=== PATIENT | male | born 1965 | race Caucasian/White ===

== ENCOUNTER 2017-07-23 10:40 | Inpatient (IN) | payer MEDICARE, MEDICAID ==
[~2017-07-23] VITALS: Ht 177.8 cm; Wt 70.3 kg
[2017-07-23 10:52] VITALS: BP 96/61
--- NOTE | 2017-07-23 11:40 | Emergency Room Report ---
History of Present Illness General Chief Complaint: General Complaint Source: Patient, Medical Record Present Illness HPI T1-year-old male coming from [facility], history of contractures, failure to thrive, dysphagia, sent in for videofluoroscopy for evaluation of dysphagia. Patient currently with muffled voice however able to state his name and where he is, does not know the year or purpose. Denying any pain at this time. No other history able to be obtained Allergies: Coded Allergies: PENICILLINS (Verified Allergy, Unknown, 07/23/17) Patient History Limited by: medical condition Past Medical History: see triage record Past Surgical History: unable to obtain Pertinent Family History: unable to obtain Reviewed Nursing Documentation: PMH: Agreed, PSxH: Agreed Nursing Documentation-PMH Past Medical History: No History, Except For Hx Hypertension: Yes History Of Psychiatric Problem: Yes - dementia, depression Hx Seizures: Yes Review of Systems All Other Systems: limited Physical Exam Vital Signs Date Time Temp Pulse Resp B/P (MAP) Pulse Ox O2 Delivery O2 Flow Rate FiO2 07/23/17 10:36 97.9 76 18 95/58 98 Room Air Sp02 EP Interpretation: reviewed, normal General Appearance: alert, non-toxic, other - chronically ill appearing elderly male Head: normocephalic, atraumatic Eyes: bilateral eye normal inspection, bilateral eye PERRL, bilateral eye EOMI ENT: normal pharynx, dry mucus membranes, other - muffled voice Neck: normal inspection, full range of motion, supple Respiratory: normal inspection, lungs clear, normal breath sounds, no respiratory distress, no retraction, no wheezing, speaking full sentences, chest symmetrical Cardiovascular #1: normal inspection, regular rate, rhythm, no edema, normal capillary refill Cardiovascular #2: 2+ radial (R), 2+ radial (L) Gastrointestinal: normal inspection, non tender, soft, non-distended, no guarding Genitourinary: no CVA tenderness Musculoskeletal: normal inspection, back normal, normal range of motion, non- tender, other - contractures b/l le but able to move on command Neurologic: responsive, motor strength/tone normal, sensory intact, normal gait , speech normal Psychiatric: other - poor historian Skin: normal color, no rash, warm/dry, normal turgor Medical Decision Making Diagnostic Impression: Primary Impression: Failure to thrive Additional Impression: Dysphagia ER Course 51-year-old male with dysphasia DDX: Failure to thrive, dysphasia Plan: Obtain labs, ua, EKG, CXR Admit ER course: Patient has been monitored during ED stay Given IV fluids for low blood pressure now MAP >65 CXR noted to have opaque FB however pt not with any lines or NG tubes Disposition: Patient is to be admitted to [facility] D/W hospitalist Dr Ever Mendosa Please note that this Emergency Department Report was dictated using [employer] events planner technology software, occasionally this can lead to erroneous entry secondary to interpretation by the dictation equipment. EKG Diagnostic Results EP Interpretation: Yes Rate: normal Rhythm: NSR ST Segments: No acute changes , chano ASA given to patient: No Rhythm Strip EP Interpretation: Yes Rate: 65 Rhythm: NSR, no PVCs, no ectopy Chest X-ray CXR: Ordered: Yes 1 view Indication: Facia EP interpretation: Yes Interpretation: Apparent radioopaque foreign body midline over neck and upper mediastinum Impression: No acute disease Electronically signed by Artem Quintana MD Laboratory Tests Test 07/23/17 11:32 White Blood Count 4.1 K/UL (4.8-10.8) L Red Blood Count 4.52 M/UL (4.70-6.10) L Hemoglobin 13.9 G/DL (14.2-18.0) L Hematocrit 42.8 % (42.0-52.0) Mean Corpuscular Volume 95 FL (80-99) Mean Corpuscular Hemoglobin 30.8 PG (27.0-31.0) Mean Corpuscular Hemoglobin Concent 32.5 G/DL (32.0-36.0) Red Cell Distribution Width 12.2 % (11.6-14.8) Platelet Count 174 K/UL (150-450) Mean Platelet Volume 8.2 FL (6.5-10.1) Neutrophils (%) (Auto) 57.8 % (45.0-75.0) Lymphocytes (%) (Auto) 28.8 % (20.0-45.0) Monocytes (%) (Auto) 10.3 % (1.0-10.0) H Eosinophils (%) (Auto) 2.3 % (0.0-3.0) Basophils (%) (Auto) 0.8 % (0.0-2.0) Prothrombin Time Pending Prothrombin Time INR Pending PTT Pending Sodium Level 138 MMOL/L (136-145) Potassium Level 3.9 MMOL/L (3.5-5.1) Chloride Level 103 MMOL/L (98-107) Carbon Dioxide Level 27 MMOL/L (21-32) Anion Gap 8 mmol/L (5-15) Blood Urea Nitrogen 12 mg/dL (7-18) Creatinine 0.7 MG/DL (0.55-1.30) Estimate Glomerular Filtration Rate > 60 mL/min (>60) Glucose Level 118 MG/DL (74-106) H Calcium Level 9.1 MG/DL (8.5-10.1) Total Bilirubin 0.5 MG/DL (0.2-1.0) Aspartate Amino Transferase (AST) 15 U/L (15-37) Alanine Aminotransferase (ALT) 17 U/L (12-78) Alkaline Phosphatase 55 U/L (46-116) Total Protein 7.0 G/DL (6.4-8.2) Albumin 3.3 G/DL (3.4-5.0) L Globulin 3.7 g/dL Albumin/Globulin Ratio 0.9 (1.0-2.7) L Last Vital Signs Date Time Temp Pulse Resp B/P (MAP) Pulse Ox O2 Delivery O2 Flow Rate FiO2 07/23/17 10:36 97.9 76 18 95/58 98 Room Air Disposition: ADMITTED INPATIENT Condition: Serious Artem Quintana M.D. Jul 23, 2017 11:40
[2017-07-23 11:55] LABS: BASOPHILS % (AUTO) 0.8 % (0.0-2.0); EOSINOPHILS % (AUTO) 2.3 % (0.0-3.0); LYMPHOCYTES % (AUTO) 28.8 % (20.0-45.0); MEAN CORPUSCULAR HEMOGLOBIN 30.8 PG (27.0-31.0); MEAN CORPUSCULAR HGB CONC 32.5 G/DL (32.0-36.0); MEAN CORPUSCULAR VOLUME 95 FL (80-99); MEAN PLATELET VOLUME 8.2 FL (6.5-10.1); MONOCYTES % (AUTO) 10.3 % (1.0-10.0); NEUTROPHILS % (AUTO) 57.8 % (45.0-75.0); PLATELET COUNT 174 K/UL (150-450); RED BLOOD COUNT 4.52 M/UL (4.70-6.10); RED CELL DISTRIBUTION WIDTH 12.2 % (11.6-14.8); WHITE BLOOD COUNT 4.1 K/UL (4.8-10.8)
--- NOTE | 2017-07-23 11:56 | Diagnostic Imaging Report ---
Indication: Dyspnea Comparison: None A single view chest radiograph was obtained. Findings: The lungs are clear. Cardio mediastinal silhouette is normal. The bones are osteopenic. There is a vertically oriented radiopaque catheter or wire that projects midline over the neck and upper mediastinum. Another vertically oriented catheter/wire projects over the heart and upper abdomen. I have confirmed patient does not have an indwelling nasogastric tube or other catheter. This is either overlying the patient or may be an abandoned catheter or wire from a previous procedure. Impression: No acute abnormalities. Apparent radiopaque foreign body as discussed above
[2017-07-23 12:02] VITALS: BP 104/62
[2017-07-23 12:15] LABS: ALANINE AMINOTRANSFERASE 17 U/L (12-78); ALBUMIN/GLOBULIN RATIO 0.9 (1.0-2.7); ANION GAP 8 mmol/L (5-15); ASPARTATE AMINO TRANSFERASE 15 U/L (15-37); CALCIUM 9.1 MG/DL (8.5-10.1); CARBON DIOXIDE 27 MMOL/L (21-32); CHLORIDE 103 MMOL/L (98-107); CREATININE 0.7 MG/DL (0.55-1.30); GLOMERULAR FILTRATION RATE > 60 mL/min (>60); POTASSIUM 3.9 MMOL/L (3.5-5.1); SODIUM 138 MMOL/L (136-145)
[2017-07-23] MEDS ORDERED: MILK OF MA400 MG/51 ORAL (12:30)
[2017-07-23] MEDS ORDERED: DEPAKOTE SPRIN125 MG PO (12:30)
[2017-07-23] MEDS ORDERED: CRANBERRY450 M4 PO (12:30)
[2017-07-23] MEDS ORDERED: DULCOLAX STOOL100 M1 PO (12:30)
[2017-07-23] MEDS ORDERED: DOCUSATE SODIU100 MG ORAL (12:30)
[2017-07-23] MEDS ORDERED: METFORMIN HCL500 M1 ORAL (12:30)
[2017-07-23 12:52] LABS: INR 1.2 (0.9-1.1); PROTHROMBIN TIME 12.2 SEC (9.30-11.50)
[2017-07-23] MEDS ORDERED: LORazepam Inj 2mg/ml 1ml IV PRN (13:15)
[2017-07-23] MEDS ORDERED: Mylanta II UD 30ml ORAL PRN (13:15)
[2017-07-23] MEDS ORDERED: Morphine Sulfate 4mg/ml Inj IVP PRN (13:15)
[2017-07-23 13:37] VITALS: BP 105/63
[2017-07-23] MEDS: Depakote 125mg Sprinkles ORAL SCH ×2 (14:00→21:00)
[2017-07-23 14:25] VITALS: BP 103/60
[2017-07-23 16:15] VITALS: BP 95/67
[2017-07-23] MEDS: NovoLOG Insulin Flexpen SUBQ SCH ×2 (16:30→21:00)
--- NOTE | 2017-07-23 18:25 | GI Initial Consult Note ---
History of Present Illness General Date patient seen: Jul 23, 2017 Time patient seen: 18:09 Reason for Hospitalization: General Complaint Referring physician: IRLANDA URIAS Reason for Consultation: DYSPHAGIA Present Illness HPI 51-year-old male coming from [facility], history of contractures, failure to thrive, dysphagia, sent in for videofluoroscopy for evaluation of dysphagia. Patient currently with muffled voice however able to state his name and where he is, does not know the year or purpose. Denying any pain at this time. No other history able to be obtained. GI consulted for dysphagia, FTT. HPI as noted above. Pt seen on floor, awake A&Ox4 NAD with no active s/sx of N/V/D. ROS limited, patient able to answer simple questions. CXR noted that patient has foreign body in the mediastinum. Labs reviewed. Unknown history of endoscopic/colonoscopies. Home Meds Reported Medications Magnesium Hydroxide* (MILK OF MAGNESIA*) 400 Mg/5 Ml Oral.susp, 30 ML ORAL DAILY , ML 07/23/17 Metformin Hcl* (METFORMIN HCL*) 500 Mg Tablet, 500 MG ORAL TWICE A DAY, TAB 07/23/17 Docusate Sodium (DULCOLAX STOOL SOFTENER) 100 Mg Capsule, 100 MG PO, CAP 07/23/17 Docusate Sodium* (DOCUSATE SODIUM*) 100 Mg Capsule, 100 MG ORAL DAILY, CAP 07/23/17 Divalproex Sodium (DEPAKOTE SPRINKLE) 125 Mg Cap.sprink, 125 MG PO BID, CAP 07/23/17 Cranberry Fruit Concentrate (CRANBERRY) 450 Mg Capsule, 450 MG PO DAILY, CAP 07/23/17 Med list reviewed/reconciled: Yes Allergies: Coded Allergies: PENICILLINS (Verified Allergy, Unknown, 07/23/17) Patient History Limited by: medical condition History Provided By: Medical Record PMH Narrative Limited by: medical condition Past Medical History: see triage record Past Surgical History: unable to obtain Pertinent Family History: unable to obtain Reviewed Nursing Documentation: PMH: Agreed, PSxH: Agreed Nursing Documentation-PMH Past Medical History: No History, Except For Hx Hypertension: Yes History Of Psychiatric Problem: Yes - dementia, depression Hx Seizures: Yes Review of Systems All Other Systems: limited Physical Exam Vital Signs Date Time Temp Pulse Resp B/P (MAP) Pulse Ox O2 Delivery O2 Flow Rate FiO2 10/19/17 10:36 97.9 76 18 95/58 98 Room Air Sp02 EP Interpretation: reviewed, normal Labs Laboratory Tests Test 07/23/17 11:32 White Blood Count 4.1 K/UL (4.8-10.8) L Red Blood Count 4.52 M/UL (4.70-6.10) L Hemoglobin 13.9 G/DL (14.2-18.0) L Hematocrit 42.8 % (42.0-52.0) Mean Corpuscular Volume 95 FL (80-99) Mean Corpuscular Hemoglobin 30.8 PG (27.0-31.0) Mean Corpuscular Hemoglobin Concent 32.5 G/DL (32.0-36.0) Red Cell Distribution Width 12.2 % (11.6-14.8) Platelet Count 174 K/UL (150-450) Mean Platelet Volume 8.2 FL (6.5-10.1) Neutrophils (%) (Auto) 57.8 % (45.0-75.0) Lymphocytes (%) (Auto) 28.8 % (20.0-45.0) Monocytes (%) (Auto) 10.3 % (1.0-10.0) H Eosinophils (%) (Auto) 2.3 % (0.0-3.0) Basophils (%) (Auto) 0.8 % (0.0-2.0) Prothrombin Time 12.2 SEC (9.30-11.50) H Prothromb Time International Ratio 1.2 (0.9-1.1) H Activated Partial Thromboplast Time 28 SEC (23-33) Sodium Level 138 MMOL/L (136-145) Potassium Level 3.9 MMOL/L (3.5-5.1) Chloride Level 103 MMOL/L (98-107) Carbon Dioxide Level 27 MMOL/L (21-32) Anion Gap 8 mmol/L (5-15) Blood Urea Nitrogen 12 mg/dL (7-18) Creatinine 0.7 MG/DL (0.55-1.30) Estimat Glomerular Filtration Rate > 60 mL/min (>60) Glucose Level 118 MG/DL (74-106) H Calcium Level 9.1 MG/DL (8.5-10.1) Total Bilirubin 0.5 MG/DL (0.2-1.0) Aspartate Amino Transf (AST/SGOT) 15 U/L (15-37) Alanine Aminotransferase (ALT/SGPT) 17 U/L (12-78) Alkaline Phosphatase 55 U/L (46-116) Total Protein 7.0 G/DL (6.4-8.2) Albumin 3.3 G/DL (3.4-5.0) L Globulin 3.7 g/dL Albumin/Globulin Ratio 0.9 (1.0-2.7) L General Appearance: well appearing, no apparent distress, alert Head: normocephalic EENT: PERRL/EOMI, normal ENT inspection Neck: supple Respiratory: normal breath sounds, no respiratory distress Cardiovascular: normal rate Gastrointestinal: normal inspection, non tender, soft, normal bowel sounds, non -distended Rectal: deferred Genitourinary: deferred Musculoskeletal: normal inspection, back normal Neurologic: alert Skin: normal inspection, normal color, no rash, warm/dry, palpation normal, well hydrated Lymphatic: normal inspection, no adenopathy Current Medications Current Medications Medications (Trade) Dose Ordered Sig/Rachid Route PRN Reason Start Time Stop Time Status Last Admin Dose Admin Acetaminophen (Tylenol) 650 mg Q4H PRN ORAL T>100.5 F 07/23/17 13:15 08/22/17 13:14 Al Hydroxide/Mg Hydroxide (Mylanta II) 30 ml Q6H PRN ORAL dyspepsia 07/23/17 13:15 08/22/17 13:14 Dextrose (Dextrose 50%) STAT PRN IV Hypoglycemia 07/23/17 13:15 08/22/17 13:14 Divalproex Sodium (Depakote Sprinkles) 125 mg Q12HR ORAL 07/23/17 14:00 08/22/17 13:59 Heparin Sodium (Porcine) (Heparin 5000 units/ml) 5,000 units EVERY 12 HOURS SUBQ 07/23/17 21:00 08/22/17 20:59 Insulin Aspart (NovoLOG) BEFORE MEALS AND HS SUBQ 07/23/17 16:30 08/22/17 16:29 Lorazepam (Ativan 2mg/ml 1ml) 0.5 mg Q4H PRN IV For Anxiety 07/23/17 13:15 07/30/17 13:14 Morphine Sulfate (Morphine Sulfate) 1 mg Q4H PRN IVP PAIN 4-10 07/23/17 13:15 07/30/17 13:14 Ondansetron HCl (Zofran) 4 mg Q6H PRN IVP Nausea & Vomiting 07/23/17 13:15 08/22/17 13:14 Polyethylene Glycol (Miralax) 17 gm HSPRN PRN ORAL Constipation 07/23/17 21:00 08/22/17 20:59 Zolpidem Tartrate (Ambien) 5 mg HSPRN PRN ORAL Insomnia 07/23/17 21:00 07/30/17 20:59 GI: Plan Problems: (1) Foreign body (2) Dysphagia (3) Failure to thrive Plan CXR noted >> There is a vertically oriented radiopaque catheter or wire that projects midline over the neck and upper mediastinum. Another vertically oriented catheter/wire projects over the heart and upper abdomen. I have confirmed patient does not have an indwelling nasogastric tube or other catheter. This is either overlying the patient or may be an abandoned catheter or wire from a previous procedure. EGD scheduled for tomorrow. maintain NPO + IVFs ordered Chest CT H2B ST evaluation fu labs Discussed with Dr. Tang. Thank you for this patient referral, we will follow. Julieta Nieto N.P. Jul 23, 2017 18:25
[2017-07-23] MEDS: D5 1/2NS 1,000 ML IV SCH (19:57)
[2017-07-23 20:00] VITALS: BP 94/55
--- NOTE | 2017-07-23 20:30 | History and Physical Report ---
DATE OF ADMISSION: 07/23/2017 TIME: 3 p.m. CONSULTANTS: 1. Rusty Bowen M.D. 2. Fabien Tang M.D. 3. Sheldon Lopez M.D. 4. Kenny Anderson M.D. CHIEF COMPLAINT: Failure to thrive, weakness, cerebral palsy, and dysphagia. BRIEF HISTORY: This is a 51-year-old male from [facility] presented with above-mentioned diagnoses, has decrease in appetite. Currently, calm, slightly confused in bed, not talking. PAST MEDICAL HISTORY: Cerebral palsy, diabetes, and hypertension. PAST SURGICAL HISTORY: Unknown. MEDICATIONS: MiraLAX, Ambien, heparin, Tylenol, morphine, Zofran, Ativan, and Mylanta. ALLERGIES: Penicillin. SOCIAL HISTORY: Nonsmoker. No alcohol. No intravenous drug abuse. FAMILY HISTORY: Noncontributory. REVIEW OF SYSTEMS: Unavailable. PHYSICAL EXAMINATION: GENERAL: Calm in bed, oriented x1, no acute distress. VITAL SIGNS: Temperature 97 degrees, pulse 57, respirations 20, and blood pressure 103/60. CARDIOVASCULAR: No murmur. LUNGS: Distant and Clear. ABDOMEN: Bowel sounds are positive. Nontender and nondistended. EXTREMITIES: No cyanosis, clubbing, or edema. NEUROLOGIC: Slightly weak x4, but moves all extremities. LABORATORY AND DIAGNOSTIC DATA: White count 4.1 and hemoglobin 13.9, otherwise CBC is normal. Glucose 118, otherwise BMP is normal. Albumin 3.3. INR is 1.2. ASSESSMENT: 1. Failure to thrive. 2. Dysphagia. 3. Cerebral palsy. 4. Anemia. 5. Malnutrition. 6. Diabetes. 7. . PLAN: Continue pre-medications. OT/PT. Dietary evaluation. CBC and BMP in the morning. Resume home medications. Dr. Bowen, Dr. Tang, Dr. Lopez, and Dr. Anderson to consult. Ever Mendosa D.O. DR: ANA MARÍA JOB#: [id number] CC:
[2017-07-23] MEDS ORDERED: Zolpidem 5mg tab ORAL PRN (21:00)
[2017-07-23] MEDS ORDERED: Miralax 17gm pkt ORAL PRN (21:00)
[2017-07-23] MEDS: Heparin 5000 units/ml inj SUBQ SCH (21:52)
--- NOTE | 2017-07-23 22:23 | Consultation ---
History of Present Illness General Date patient seen: Jul 23, 2017 Chief Complaint: General Complaint Referring physician: IRLANDA URIAS Reason for Consultation: DYSPHAGIA Present Illness HPI Patient is a 51 yo gentleman with pmhx of HTN, cerebral pulsy and mental retardation who presents to [facility] for declining health and poor intake. I was asked to evaluate the patient from internal medicine and pulmonary point of view after the patients chest radiograph revealed an abnormal foreign body object located in the patients mediastinum. History has been obtained from the patients hospitalist and emergency room doctor. Strict aspiration precautions have been initiated, more diagnostic tests are required to investigate the foreign body object. Allergies: Coded Allergies: PENICILLINS (Verified Allergy, Unknown, 07/23/17) Medication History Scheduled Cranberry Fruit Concentrate (Cranberry), 450 MG PO DAILY, (Reported) Divalproex Sodium (Depakote Sprinkle), 125 MG PO BID, (Reported) Docusate Sodium* (Docusate Sodium*), 100 MG ORAL DAILY, (Reported) Magnesium Hydroxide* (Milk Of Magnesia*), 30 ML ORAL DAILY, (Reported) Metformin Hcl* (Metformin Hcl*), 500 MG ORAL TWICE A DAY, (Reported) Polyethylene Glycol 3350* (Miralax*), 17 GM GT BEDTIME, (Reported) Valproate Sodium (Valproic Acid), 500 MG GT EVERY 12 HOURS, (Reported) Scheduled PRN Zolpidem Tartrate* (Ambien*), 5 MG GT BEDTIME PRN for Insomnia, (Reported) Miscellaneous Medications Docusate Sodium (Dulcolax Stool Softener), 100 MG PO, (Reported) Famotidine (Pepcid Ac), 20 MG PO, (Reported) Patient History Healthcare decision maker N Resuscitation status Advanced Directive on File Past Medical/Surgical History Past Medical/Surgical History: (1) Foreign body (2) Anemia (3) Cerebral palsy (4) Malnutrition (5) UTI (urinary tract infection) (6) Fecal impaction (7) s/p L frontal lobe lesion/irene hole. 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 (12) r/o progressive neurodegenerative disease, with quadriparesis, cognitive loss, dysphagia. Review of Systems Constitutional: Reports: malaise Gastrointestinal: Reports: other - poor oral intake dysphagia Physical Exam General Appearance: lethargic Lines, tubes and drains: peripheral HEENT: anicteric, PERRL Neck: non-tender Respiratory/Chest: chest wall non-tender, decreased breath sounds, accessory muscle use Breasts: no masses Cardiovascular/Chest: normal peripheral pulses, normal rate, regular rhythm Abdomen: normal bowel sounds, non tender, soft, no organomegaly, no mass Genitourinary/Rectal: normal genital exam, normal rectal exam Extremities: other - muscular atrophy axial appendages Skin Exam: normal pigmentation, warm/dry Neurologic: abnormal CN, motor weakness, disoriented, unresponsiveness Last 24 Hour Vital Signs Date Time Temp Pulse Resp B/P (MAP) Pulse Ox O2 Delivery O2 Flow Rate FiO2 07/23/17 20:00 97.2 58 18 94/55 97 Room Air 07/23/17 16:15 97.7 77 19 95/67 96 Room Air 07/23/17 14:25 97.4 67 20 103/60 97 Room Air 07/23/17 13:59 97.6 66 16 104/62 99 Room Air 07/23/17 13:58 67 18 106/70 100 Room Air 07/23/17 13:37 97.8 62 18 105/63 99 Room Air 07/23/17 12:02 97.6 66 16 104/62 99 Room Air 07/23/17 10:52 97.7 64 15 96/61 99 Room Air 07/23/17 10:36 97.9 76 18 95/58 98 Room Air Intake and Output 07/23/17 07/24/17 19:00 07:00 Intake Total 0 ml Output Total 150 ml Balance -150 ml Intake Oral 0 ml Output Urine Total 150 ml # Voids 2 # Bowel Movements 1 Laboratory Tests Test 07/23/17 11:32 White Blood Count 4.1 K/UL (4.8-10.8) L Red Blood Count 4.52 M/UL (4.70-6.10) L Hemoglobin 13.9 G/DL (14.2-18.0) L Hematocrit 42.8 % (42.0-52.0) Mean Corpuscular Volume 95 FL (80-99) Mean Corpuscular Hemoglobin 30.8 PG (27.0-31.0) Mean Corpuscular Hemoglobin Concent 32.5 G/DL (32.0-36.0) Red Cell Distribution Width 12.2 % (11.6-14.8) Platelet Count 174 K/UL (150-450) Mean Platelet Volume 8.2 FL (6.5-10.1) Neutrophils (%) (Auto) 57.8 % (45.0-75.0) Lymphocytes (%) (Auto) 28.8 % (20.0-45.0) Monocytes (%) (Auto) 10.3 % (1.0-10.0) H Eosinophils (%) (Auto) 2.3 % (0.0-3.0) Basophils (%) (Auto) 0.8 % (0.0-2.0) Prothrombin Time 12.2 SEC (9.30-11.50) H Prothromb Time International Ratio 1.2 (0.9-1.1) H Activated Partial Thromboplast Time 28 SEC (23-33) Sodium Level 138 MMOL/L (136-145) Potassium Level 3.9 MMOL/L (3.5-5.1) Chloride Level 103 MMOL/L (98-107) Carbon Dioxide Level 27 MMOL/L (21-32) Anion Gap 8 mmol/L (5-15) Blood Urea Nitrogen 12 mg/dL (7-18) Creatinine 0.7 MG/DL (0.55-1.30) Estimat Glomerular Filtration Rate > 60 mL/min (>60) Glucose Level 118 MG/DL (74-106) H Calcium Level 9.1 MG/DL (8.5-10.1) Total Bilirubin 0.5 MG/DL (0.2-1.0) Aspartate Amino Transf (AST/SGOT) 15 U/L (15-37) Alanine Aminotransferase (ALT/SGPT) 17 U/L (12-78) Alkaline Phosphatase 55 U/L (46-116) Total Protein 7.0 G/DL (6.4-8.2) Albumin 3.3 G/DL (3.4-5.0) L Globulin 3.7 g/dL Albumin/Globulin Ratio 0.9 (1.0-2.7) L Height (Feet): 5 Height (Inches): 8.00 Weight (Pounds): 250 Medications Current Medications Medications (Trade) Dose Ordered Sig/Rachid Route PRN Reason Start Time Stop Time Status Last Admin Dose Admin Acetaminophen (Tylenol) 650 mg Q4H PRN ORAL T>100.5 F 07/23/17 13:15 08/22/17 13:14 Al Hydroxide/Mg Hydroxide (Mylanta II) 30 ml Q6H PRN ORAL dyspepsia 07/23/17 13:15 08/22/17 13:14 Dextrose (Dextrose 50%) STAT PRN IV Hypoglycemia 07/23/17 13:15 08/22/17 13:14 Dextrose/Sodium Chloride 1,000 ml @ 75 mls/hr [id number] IV 07/23/17 18:30 08/22/17 18:29 07/23/17 19:57 Divalproex Sodium (Depakote Sprinkles) 125 mg Q12HR ORAL 07/23/17 14:00 08/22/17 13:59 Famotidine (Pepcid I.v.) 20 mg Q12HR IVP 07/23/17 21:00 08/22/17 20:59 07/23/17 21:49 Heparin Sodium (Porcine) (Heparin 5000 units/ml) 5,000 units EVERY 12 HOURS SUBQ 07/23/17 21:00 08/22/17 20:59 07/23/17 21:52 Insulin Aspart (NovoLOG) BEFORE MEALS AND HS SUBQ 07/23/17 16:30 08/22/17 16:29 Lorazepam (Ativan 2mg/ml 1ml) 0.5 mg Q4H PRN IV For Anxiety 07/23/17 13:15 07/30/17 13:14 Morphine Sulfate (Morphine Sulfate) 1 mg Q4H PRN IVP PAIN 4-10 07/23/17 13:15 07/30/17 13:14 Ondansetron HCl (Zofran) 4 mg Q6H PRN IVP Nausea & Vomiting 07/23/17 13:15 08/22/17 13:14 Polyethylene Glycol (Miralax) 17 gm HSPRN PRN ORAL Constipation 07/23/17 21:00 08/22/17 20:59 Zolpidem Tartrate (Ambien) 5 mg HSPRN PRN ORAL Insomnia 07/23/17 21:00 07/30/17 20:59 Assessment/Plan Status: stable, progressing Assessment/Plan At high risk for aspiration Declining status poor oral intake Spastic quadriparesis Malnutrition Cerebral palsy Failure to thrive Plan GI specialist requested Strict aspiration precautions Swallow evaluation pending Computed tomography foreign body investigation Symptomatic treatment Check electrolytes All notes and meds reviewed CXR negative for acute pulmonary disease ALEKSANDER LICONA Jul 23, 2017 22:23
[2017-07-24] VITALS: BP 105/64
[2017-07-24 04:42] VITALS: BP 112/67
[2017-07-24] MEDS: NovoLOG Insulin Flexpen SUBQ SCH ×4 (05:20→20:22)
[2017-07-24] MEDS: D5 1/2NS 1,000 ML IV SCH ×2 (06:09→20:21)
--- NOTE | 2017-07-24 07:51 | Pulmonology Progress Note ---
Assessment/Plan Assessment/Plan ASSESSMENT Dysphagia possible foreign body dehydration r/o occult malignancy dementia DM seizure disorder cerebral palsy PLAN OF CARE MS floor IVF CXR with possible FB CT C/A/P revealed wire from spinal stimulator as presumed FB , + thyroid mass get thyroid US neuro eval CT head EEG seizure precautions GI follows EGD in am NPO H2B swallow eval and video swallow DVT prophylaxis pain management bowel regimen BS management with SS of insulin PT/OT case discussed and evaluated by supervising physician Subjective Allergies: Coded Allergies: PENICILLINS (Verified Allergy, Unknown, 07/23/17) Subjective no signs of distress Objective Last 24 Hour Vital Signs Date Time Temp Pulse Resp B/P (MAP) Pulse Ox O2 Delivery O2 Flow Rate FiO2 07/24/17 04:42 97.9 68 20 112/67 99 Room Air 07/24/17 00:00 97.0 61 18 105/64 98 Room Air 07/23/17 20:00 97.2 58 18 94/55 97 Room Air 07/23/17 16:15 97.7 77 19 95/67 96 Room Air 07/23/17 14:25 97.4 67 20 103/60 97 Room Air 07/23/17 13:59 97.6 66 16 104/62 99 Room Air 07/23/17 13:58 67 18 106/70 100 Room Air 07/23/17 13:37 97.8 62 18 105/63 99 Room Air 07/23/17 12:02 97.6 66 16 104/62 99 Room Air 07/23/17 10:52 97.7 64 15 96/61 99 Room Air 07/23/17 10:36 97.9 76 18 95/58 98 Room Air Intake and Output 07/24/17 07/25/17 19:00 07:00 Intake Total 75 ml Balance 75 ml IV Total 75 ml General Appearance: no acute distress, other - bedridden, awake, confused HEENT: normocephalic, anicteric Respiratory/Chest: lungs clear, no respiratory distress, no accessory muscle use Cardiovascular: no JVD Abdomen: normal bowel sounds, soft, non tender Genitourinary: normal external genitalia Extremities: no edema Neurologic/Psychiatric: abnormal gait, alert, responsive Laboratory Tests 07/23/17 11:32: White Blood Count 4.1L, Red Blood Count 4.52L, Hemoglobin 13.9L, Hematocrit 42.8 , Mean Corpuscular Volume 95, Mean Corpuscular Hemoglobin 30.8, Mean Corpuscular Hemoglobin Concent 32.5, Red Cell Distribution Width 12.2, Platelet Count 174, Mean Platelet Volume 8.2, Neutrophils (%) (Auto) 57.8, Lymphocytes (% ) (Auto) 28.8, Monocytes (%) (Auto) 10.3H, Eosinophils (%) (Auto) 2.3, Basophils (%) (Auto) 0.8, Prothrombin Time 12.2H, Prothromb Time International Ratio 1.2H, Activated Partial Thromboplast Time 28, Sodium Level 138, Potassium Level 3.9, Chloride Level 103, Carbon Dioxide Level 27, Anion Gap 8, Blood Urea Nitrogen 12, Creatinine 0.7, Estimat Glomerular Filtration Rate > 60, Glucose Level 118H, Calcium Level 9.1, Total Bilirubin 0.5, Aspartate Amino Transf (AST/ SGOT) 15, Alanine Aminotransferase (ALT/SGPT) 17, Alkaline Phosphatase 55, Total Protein 7.0, Albumin 3.3L, Globulin 3.7, Albumin/Globulin Ratio 0.9L Current Medications Medications (Trade) Dose Ordered Sig/Rachid Route PRN Reason Start Time Stop Time Status Last Admin Dose Admin Acetaminophen (Tylenol) 650 mg Q4H PRN ORAL T>100.5 F 07/23/17 13:15 08/22/17 13:14 Al Hydroxide/Mg Hydroxide (Mylanta II) 30 ml Q6H PRN ORAL dyspepsia 07/23/17 13:15 08/22/17 13:14 Dextrose (Dextrose 50%) STAT PRN IV Hypoglycemia 07/23/17 13:15 08/22/17 13:14 Dextrose/Sodium Chloride 1,000 ml @ 75 mls/hr [id number] IV 07/23/17 18:30 08/22/17 18:29 07/24/17 06:09 Divalproex Sodium (Depakote Sprinkles) 125 mg Q12HR ORAL 07/23/17 14:00 08/22/17 13:59 Famotidine (Pepcid I.v.) 20 mg Q12HR IVP 07/23/17 21:00 08/22/17 20:59 07/23/17 21:49 Heparin Sodium (Porcine) (Heparin 5000 units/ml) 5,000 units EVERY 12 HOURS SUBQ 10/19/17 21:00 08/22/17 20:59 07/23/17 21:52 Insulin Aspart (NovoLOG) BEFORE MEALS AND HS SUBQ 07/23/17 16:30 08/22/17 16:29 Lorazepam (Ativan 2mg/ml 1ml) 0.5 mg Q4H PRN IV For Anxiety 07/23/17 13:15 07/30/17 13:14 Morphine Sulfate (Morphine Sulfate) 1 mg Q4H PRN IVP PAIN 4-10 07/23/17 13:15 07/30/17 13:14 Ondansetron HCl (Zofran) 4 mg Q6H PRN IVP Nausea & Vomiting 07/23/17 13:15 08/22/17 13:14 Polyethylene Glycol (Miralax) 17 gm HSPRN PRN ORAL Constipation 07/23/17 21:00 08/22/17 20:59 Zolpidem Tartrate (Ambien) 5 mg HSPRN PRN ORAL Insomnia 07/23/17 21:00 07/30/17 20:59 Rangel ([facility])Lissette NP Jul 24, 2017 07:50
[2017-07-24 08:00] VITALS: BP 118/69
[2017-07-24 08:41] LABS: BASOPHILS % (AUTO) 0.9 % (0.0-2.0); EOSINOPHILS % (AUTO) 2.9 % (0.0-3.0); LYMPHOCYTES % (AUTO) 26.4 % (20.0-45.0); MEAN CORPUSCULAR HEMOGLOBIN 32.1 PG (27.0-31.0); MEAN CORPUSCULAR HGB CONC 33.4 G/DL (32.0-36.0); MEAN CORPUSCULAR VOLUME 96 FL (80-99); MEAN PLATELET VOLUME 7.9 FL (6.5-10.1); MONOCYTES % (AUTO) 11.2 % (1.0-10.0); NEUTROPHILS % (AUTO) 58.5 % (45.0-75.0); PLATELET COUNT 142 K/UL (150-450); RED CELL DISTRIBUTION WIDTH 12.4 % (11.6-14.8); WHITE BLOOD COUNT 3.5 K/UL (4.8-10.8)
[2017-07-24 08:57] LABS: INR 1.2 (0.9-1.1); PROTHROMBIN TIME 12.3 SEC (9.30-11.50)
--- NOTE | 2017-07-24 08:58 | Diagnostic Imaging Report ---
Indication: Foreign body demonstrated on prior radiograph Technique: No oral or IV contrast utilized, reason not stated. Spiral acquisitions obtained through the chest, abdomen, and pelvis Multiplanar reconstructions were generated. Total dose length product 813 mGycm. CTDIvol(s) 11 mGy. Radiation dose was minimized using automated exposure control Comparison: Reference made to chest radiograph of 12 hours earlier Findings: A power pack is seen in the left lower posterior chest wall. A wire, presumably a spinal stimulator wire, extends medially and cephalad from this. There is a short discontinuity in the wire within the lumbar subcutaneous fat at the T9-10 level. The wire then continues cephalad, where there is another discontinuity at C7 level. The extraspinal portion of the wire terminates at the T6-7 level. Intraspinal wire fragment is seen with the caudad tip within the left T6-7 foramen. And continues cephalad in the posterior and posterior left lateral epidural space, extending cephalad beyond imaging volume into the cervical spine. No abnormal fluid collections or attenuation abnormalities are seen surrounding any of the wiring or the power pack, although evaluation for such is somewhat limited in the absence of IV contrast administration. Chest: The lungs and pleural spaces are clear. No mediastinal or hilar mass or adenopathy. Normal heart size. No pericardial effusion. No axillary or chest wall mass or adenopathy. There is a partially calcified low-attenuation right lower pole thyroid mass which measures 2 cm in diameter. Abdomen pelvis: Lack of IV contrast limits assessment of the solid organs. The liver, gallbladder, bile ducts, pancreas, spleen, adrenals, kidneys are all unremarkable. No retroperitoneal or mesenteric mass or adenopathy. No pelvic mass or adenopathy. Lack of enteric contrast limits assessment of the GI tract. The rectum is somewhat distended by stool. No evidence of diverticulosis or diverticulitis. The appendix is normal. No small bowel distention. No free or loculated intraperitoneal air or fluid is evident. The bones are unremarkable. Impression: Radiopaque foreign body demonstrated on recent chest radiographic is demonstrated on CT to represent wire from a spinal stimulator. The power pack is in the left posterior lower chest wall, and there are multiple discontinuities of the wire Partially calcified 2 cm diameter right lower pole thyroid mass. Recommend further evaluation with thyroid sonography Possible mild rectal fecal impaction. Correlate with clinical findings No other acute thoracic or abdominal or pelvic process The CT scanner at [facility] is accredited by the [employer] and the scans are performed using protocols designed to limit radiation exposure to as low as reasonably achievable to attain images of sufficient resolution adequate for diagnostic evaluation.
[2017-07-24] MEDS: Heparin 5000 units/ml inj SUBQ SCH ×2 (09:00→20:22)
[2017-07-24] MEDS: Depakote 125mg Sprinkles ORAL SCH ×2 (09:00→20:22)
[2017-07-24 09:17] LABS: APPEARANCE,URINE CLEAR; KETONES,URINE NEGATIVE (NEGATIVE); LEUKOCYTE ESTERASE ,URINE 1+ (NEGATIVE); NITRITE,URINE NEGATIVE (NEGATIVE); PH,URINE 7 (4.5-8.0); PROTEIN,URINE NEGATIVE (NEGATIVE); UROBILINOGEN,URINE NORMAL MG/DL (0.0-1.0)
[2017-07-24 09:33] LABS: BACTERIA,URINE OCCASIONAL /HPF; RBC,URINE 0-2 /HPF (0 - 0); SQUAMOUS EPITHELIAL CELL,UR OCCASIONAL /LPF (NONE/OCC); WBC,URINE 0-2 /HPF (0 - 0)
[2017-07-24 10:30] LABS: ALANINE AMINOTRANSFERASE 18 U/L (12-78); ANION GAP 9 mmol/L (5-15); ASPARTATE AMINO TRANSFERASE 12 U/L (15-37); CALCIUM 8.9 MG/DL (8.5-10.1); CARBON DIOXIDE 27 MMOL/L (21-32); CHLORIDE 108 MMOL/L (98-107); CHOLESTEROL 118 MG/DL (< 200); CHOLESTEROL/HDL RATIO 2.6 (3.3-4.4); CREATININE 0.7 MG/DL (0.55-1.30); GLOMERULAR FILTRATION RATE > 60 mL/min (>60); POTASSIUM 3.6 MMOL/L (3.5-5.1); SODIUM 144 MMOL/L (136-145); TOTAL PROTEIN 6.5 G/DL (6.4-8.2)
[2017-07-24] MEDS ORDERED: Fleet's Enema 133ml RECTAL ONE (11:30)
[2017-07-24 12:00] VITALS: BP 121/71
--- NOTE | 2017-07-24 12:04 | Neurology Progress Note ---
Objective Physical Exam Last Vital Signs Date Time Temp Pulse Resp B/P (MAP) Pulse Ox O2 Delivery O2 Flow Rate FiO2 07/24/17 08:00 97.3 65 18 118/69 98 Room Air Laboratory Tests Test 07/24/17 08:14 07/24/17 08:32 White Blood Count 3.5 K/UL (4.8-10.8) L Red Blood Count 4.40 M/UL (4.70-6.10) L Hemoglobin 14.2 G/DL (14.2-18.0) Hematocrit 42.3 % (42.0-52.0) Mean Corpuscular Volume 96 FL (80-99) Mean Corpuscular Hemoglobin 32.1 PG (27.0-31.0) H Mean Corpuscular Hemoglobin Concent 33.4 G/DL (32.0-36.0) Red Cell Distribution Width 12.4 % (11.6-14.8) Platelet Count 142 K/UL (150-450) L Mean Platelet Volume 7.9 FL (6.5-10.1) Neutrophils (%) (Auto) 58.5 % (45.0-75.0) Lymphocytes (%) (Auto) 26.4 % (20.0-45.0) Monocytes (%) (Auto) 11.2 % (1.0-10.0) H Eosinophils (%) (Auto) 2.9 % (0.0-3.0) Basophils (%) (Auto) 0.9 % (0.0-2.0) Prothrombin Time 12.3 SEC (9.30-11.50) H Prothromb Time International Ratio 1.2 (0.9-1.1) H Activated Partial Thromboplast Time 34 SEC (23-33) H Sodium Level 144 MMOL/L (136-145) Potassium Level 3.6 MMOL/L (3.5-5.1) Chloride Level 108 MMOL/L (98-107) H Carbon Dioxide Level 27 MMOL/L (21-32) Anion Gap 9 mmol/L (5-15) Blood Urea Nitrogen 6 mg/dL (7-18) L Creatinine 0.7 MG/DL (0.55-1.30) Estimat Glomerular Filtration Rate > 60 mL/min (>60) Glucose Level 87 MG/DL (74-106) Calcium Level 8.9 MG/DL (8.5-10.1) Total Bilirubin 0.9 MG/DL (0.2-1.0) Aspartate Amino Transf (AST/SGOT) 12 U/L (15-37) L Alanine Aminotransferase (ALT/SGPT) 18 U/L (12-78) Alkaline Phosphatase 51 U/L (46-116) Total Protein 6.5 G/DL (6.4-8.2) Albumin 3.3 G/DL (3.4-5.0) L Globulin 3.2 g/dL Albumin/Globulin Ratio 1.0 (1.0-2.7) Triglycerides Level 69 MG/DL (0-200) Cholesterol Level 118 MG/DL (< 200) LDL Cholesterol 67 mg/dL (<100) HDL Cholesterol 45 MG/DL (40-60) Cholesterol/HDL Ratio 2.6 (3.3-4.4) L Urine Color Pale yellow Urine Appearance Clear Urine pH 7 (4.5-8.0) Urine Specific [place] 1.005 (1.005-1.035) Urine Protein Negative (NEGATIVE) Urine Glucose (UA) Negative (NEGATIVE) Urine Ketones Negative (NEGATIVE) Urine Occult Blood Negative (NEGATIVE) Urine Nitrite Negative (NEGATIVE) Urine Bilirubin Negative (NEGATIVE) Urine Urobilinogen Normal MG/DL (0.0-1.0) Urine Leukocyte Esterase 1+ (NEGATIVE) H Urine RBC 0-2 /HPF (0 - 0) H Urine WBC 0-2 /HPF (0 - 0) Urine Squamous Epithelial Cells Occasional /LPF Urine Bacteria Occasional /HPF (NONE) Impression/Recommendations Recommendations ## [id number] YURI WOODS Jul 24, 2017 12:04
--- NOTE | 2017-07-24 13:13 | General Progress Note ---
Assessment/Plan Problem List: (1) Cerebral palsy ICD Codes: G80.9 - Cerebral palsy, unspecified SNOMED: 761293278 (2) UTI (urinary tract infection) ICD Codes: N39.0 - Urinary tract infection, site not specified SNOMED: 31514491 (3) Malnutrition ICD Codes: E46 - Unspecified protein-calorie malnutrition SNOMED: 8336645 (4) Anemia ICD Codes: D64.9 - Anemia, unspecified SNOMED: 357201748 (5) Dysphagia ICD Codes: R13.10 - Dysphagia, unspecified SNOMED: 28236778, 961306133 (6) Foreign body SNOMED: 841061814 (7) Failure to thrive SNOMED: 86809654 Status: stable, progressing Assessment/Plan ot pt diet abx cbc bmp am Subjective Constitutional: Reports: weakness Allergies: Coded Allergies: PENICILLINS (Verified Allergy, Unknown, 07/23/17) All Systems: reviewed and negative except above Subjective sl confused Objective Last 24 Hour Vital Signs Date Time Temp Pulse Resp B/P (MAP) Pulse Ox O2 Delivery O2 Flow Rate FiO2 07/24/17 08:00 97.3 65 18 118/69 98 Room Air 07/24/17 04:42 97.9 68 20 112/67 99 Room Air 07/24/17 00:00 97.0 61 18 105/64 98 Room Air 07/23/17 20:00 97.2 58 18 94/55 97 Room Air 07/23/17 16:15 97.7 77 19 95/67 96 Room Air 07/23/17 14:25 97.4 67 20 103/60 97 Room Air 07/23/17 13:59 97.6 66 16 104/62 99 Room Air 07/23/17 13:58 67 18 106/70 100 Room Air 07/23/17 13:37 97.8 62 18 105/63 99 Room Air Intake and Output 07/24/17 07/25/17 19:00 07:00 Intake Total 75 ml Balance 75 ml IV Total 75 ml Laboratory Tests 07/24/17 08:14: White Blood Count 3.5L, Red Blood Count 4.40L, Hemoglobin 14.2, Hematocrit 42.3 , Mean Corpuscular Volume 96, Mean Corpuscular Hemoglobin 32.1H, Mean Corpuscular Hemoglobin Concent 33.4, Red Cell Distribution Width 12.4, Platelet Count 142L, Mean Platelet Volume 7.9, Neutrophils (%) (Auto) 58.5, Lymphocytes ( %) (Auto) 26.4, Monocytes (%) (Auto) 11.2H, Eosinophils (%) (Auto) 2.9, Basophils (%) (Auto) 0.9, Prothrombin Time 12.3H, Prothromb Time International Ratio 1.2H, Activated Partial Thromboplast Time 34H, Sodium Level 144, Potassium Level 3.6, Chloride Level 108H, Carbon Dioxide Level 27, Anion Gap 9, Blood Urea Nitrogen 6L, Creatinine 0.7, Estimat Glomerular Filtration Rate > 60 , Glucose Level 87, Calcium Level 8.9, Total Bilirubin 0.9, Aspartate Amino Transf (AST/SGOT) 12L, Alanine Aminotransferase (ALT/SGPT) 18, Alkaline Phosphatase 51, Total Protein 6.5, Albumin 3.3L, Globulin 3.2, Albumin/Globulin Ratio 1.0, Triglycerides Level 69, Cholesterol Level 118, LDL Cholesterol 67, HDL Cholesterol 45, Cholesterol/HDL Ratio 2.6L 07/24/17 08:32: Urine Color Pale yellow, Urine Appearance Clear, Urine pH 7, Urine Specific [place] 1.005, Urine Protein Negative, Urine Glucose (UA) Negative, Urine Ketones Negative, Urine Occult Blood Negative, Urine Nitrite Negative, Urine Bilirubin Negative, Urine Urobilinogen Normal, Urine Leukocyte Esterase 1+H, Urine RBC 0-2H, Urine WBC 0-2, Urine Squamous Epithelial Cells Occasional, Urine Bacteria Occasional Height (Feet): 5 Height (Inches): 5.00 Weight (Pounds): 250 General Appearance: lethargic EENT: normal ENT inspection Neck: normal alignment Cardiovascular: normal peripheral pulses, normal rate, regular rhythm Respiratory/Chest: chest wall non-tender, lungs clear, normal breath sounds Abdomen: normal bowel sounds, non tender, soft Extremities: normal inspection Edema: no edema noted Arm (L), no edema noted Arm (R), no edema noted Leg (L), no edema noted Leg (R), no edema noted Pedal (L), no edema noted Pedal (R), no edema noted Generalized Neurologic: responsive, motor weakness Skin: normal pigmentation, warm/dry IRLANDA URIAS Jul 24, 2017 13:13
--- NOTE | 2017-07-24 14:31 | GI Progress Note ---
Assessment/Plan Problems: (1) Anemia ICD Codes: D64.9 - Anemia, unspecified SNOMED: 657792638 (2) Failure to thrive SNOMED: 46082848 (3) Dysphagia ICD Codes: R13.10 - Dysphagia, unspecified SNOMED: 82535470, 354933982 (4) Malnutrition ICD Codes: E46 - Unspecified protein-calorie malnutrition SNOMED: 3599486 (5) Fecal impaction ICD Codes: K56.41 - Fecal impaction SNOMED: 69707426 Status: stable Status Narrative Discussed with Dr. Tang. Assessment/Plan CXR noted >> There is a vertically oriented radiopaque catheter or wire that projects midline over the neck and upper mediastinum. Another vertically oriented catheter/wire projects over the heart and upper abdomen. I have confirmed patient does not have an indwelling nasogastric tube or other catheter. This is either overlying the patient or may be an abandoned catheter or wire from a previous procedure. EGD deferred, noted foreign body is wire from a spinal stimulator noted in CT chest. fu ST eval H2B fleets prn fu labs Subjective Subjective limited Objective Last 24 Hour Vital Signs Date Time Temp Pulse Resp B/P (MAP) Pulse Ox O2 Delivery O2 Flow Rate FiO2 07/24/17 12:00 98.0 68 18 121/71 97 Room Air 07/24/17 08:00 97.3 65 18 118/69 98 Room Air 07/24/17 04:42 97.9 68 20 112/67 99 Room Air 07/24/17 00:00 97.0 61 18 105/64 98 Room Air 07/23/17 20:00 97.2 58 18 94/55 97 Room Air 07/23/17 16:15 97.7 77 19 95/67 96 Room Air Intake and Output 07/24/17 07/25/17 19:00 07:00 Intake Total 75 ml Balance 75 ml IV Total 75 ml Laboratory Tests Test 07/24/17 08:14 07/24/17 08:32 White Blood Count 3.5 K/UL (4.8-10.8) L Red Blood Count 4.40 M/UL (4.70-6.10) L Hemoglobin 14.2 G/DL (14.2-18.0) Hematocrit 42.3 % (42.0-52.0) Mean Corpuscular Volume 96 FL (80-99) Mean Corpuscular Hemoglobin 32.1 PG (27.0-31.0) H Mean Corpuscular Hemoglobin Concent 33.4 G/DL (32.0-36.0) Red Cell Distribution Width 12.4 % (11.6-14.8) Platelet Count 142 K/UL (150-450) L Mean Platelet Volume 7.9 FL (6.5-10.1) Neutrophils (%) (Auto) 58.5 % (45.0-75.0) Lymphocytes (%) (Auto) 26.4 % (20.0-45.0) Monocytes (%) (Auto) 11.2 % (1.0-10.0) H Eosinophils (%) (Auto) 2.9 % (0.0-3.0) Basophils (%) (Auto) 0.9 % (0.0-2.0) Prothrombin Time 12.3 SEC (9.30-11.50) H Prothromb Time International Ratio 1.2 (0.9-1.1) H Activated Partial Thromboplast Time 34 SEC (23-33) H Sodium Level 144 MMOL/L (136-145) Potassium Level 3.6 MMOL/L (3.5-5.1) Chloride Level 108 MMOL/L (98-107) H Carbon Dioxide Level 27 MMOL/L (21-32) Anion Gap 9 mmol/L (5-15) Blood Urea Nitrogen 6 mg/dL (7-18) L Creatinine 0.7 MG/DL (0.55-1.30) Estimat Glomerular Filtration Rate > 60 mL/min (>60) Glucose Level 87 MG/DL (74-106) Calcium Level 8.9 MG/DL (8.5-10.1) Total Bilirubin 0.9 MG/DL (0.2-1.0) Aspartate Amino Transf (AST/SGOT) 12 U/L (15-37) L Alanine Aminotransferase (ALT/SGPT) 18 U/L (12-78) Alkaline Phosphatase 51 U/L (46-116) Total Protein 6.5 G/DL (6.4-8.2) Albumin 3.3 G/DL (3.4-5.0) L Globulin 3.2 g/dL Albumin/Globulin Ratio 1.0 (1.0-2.7) Triglycerides Level 69 MG/DL (0-200) Cholesterol Level 118 MG/DL (< 200) LDL Cholesterol 67 mg/dL (<100) HDL Cholesterol 45 MG/DL (40-60) Cholesterol/HDL Ratio 2.6 (3.3-4.4) L Urine Color Pale yellow Urine Appearance Clear Urine pH 7 (4.5-8.0) Urine Specific [place] 1.005 (1.005-1.035) Urine Protein Negative (NEGATIVE) Urine Glucose (UA) Negative (NEGATIVE) Urine Ketones Negative (NEGATIVE) Urine Occult Blood Negative (NEGATIVE) Urine Nitrite Negative (NEGATIVE) Urine Bilirubin Negative (NEGATIVE) Urine Urobilinogen Normal MG/DL (0.0-1.0) Urine Leukocyte Esterase 1+ (NEGATIVE) H Urine RBC 0-2 /HPF (0 - 0) H Urine WBC 0-2 /HPF (0 - 0) Urine Squamous Epithelial Cells Occasional /LPF Urine Bacteria Occasional /HPF (NONE) Height (Feet): 5 Height (Inches): 5.00 Weight (Pounds): 250 General Appearance: WD/WN, no apparent distress, alert Cardiovascular: normal rate Respiratory/Chest: normal breath sounds, no respiratory distress Abdominal Exam: normal bowel sounds, non tender, soft Julieta Nieto N.P. Jul 24, 2017 14:31
--- NOTE | 2017-07-24 15:34 | Cardiology Report ---
APPROVED REPORT EKG Measurement Heart [id number] Normal sinus rhythm Early repolarization Normal ECG
[2017-07-24 16:00] VITALS: BP 87/51
--- NOTE | 2017-07-24 17:48 | Diagnostic Imaging Report ---
Indications: Altered mental status Technique: Spiral acquisitions obtained through the brain. Angled axial and coronal 5 x 5 mm slices were reconstructed. Total dose length product 1376 mGycm. CTDI vol(s) 70 mGy. Dose reduction achieved using automated exposure control Comparison: None Findings: There is a small focal left frontal calvarial defect, presumably an old ventriculostomy site or irene hole. The to this is white matter and cortical low-attenuation, consistent with encephalomalacia, suspect related to the above. No acute intracranial hemorrhage or edema. No mass effect nor midline shift. There is age-related enlargement of the ventricles and extra-axial CSF spaces. There is minimal periventricular deep white matter chronic ischemic change. Otherwise intact calvarium. Visualized orbits and sinuses are unremarkable. Impression: Negative for acute intracranial bleed or mass effect. 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 Left frontal encephalomalacia, likely related to the above. Correlate with surgical history Other chronic and age-related changes, as described The CT scanner at [facility] is accredited by the [employer] and the scans are performed using protocols designed to limit radiation exposure to as low as reasonably achievable to attain images of sufficient resolution adequate for diagnostic evaluation.
[2017-07-24 20:00] VITALS: BP 101/67
[2017-07-24] MEDS ORDERED: D5 1/2NS 1000ml IV ONE (21:44)
--- NOTE | 2017-07-24 23:40 | Infectious Diseases Prog Note ---
Assessment/Plan Problems: (1) Dysphagia Assessment & Plan: Etiology? Doubt cutaneous Candidiasis. (2) Failure to thrive (3) Cerebral palsy (4) Bacteriuria Assessment & Plan: Asymptomatic. Hold off on antibiotics. Subjective Allergies: Coded Allergies: PENICILLINS (Verified Allergy, Unknown, 07/23/17) Objective Vital Signs Last 24 Hour Vital Signs Date Time Temp Pulse Resp B/P (MAP) Pulse Ox O2 Delivery O2 Flow Rate FiO2 07/24/17 20:00 97.0 55 20 101/67 95 Nasal Cannula 3.0 07/24/17 16:00 96.0 54 16 87/51 96 07/24/17 12:00 98.0 68 18 121/71 97 Room Air 07/24/17 08:00 97.3 65 18 118/69 98 Room Air 07/24/17 04:42 97.9 68 20 112/67 99 Room Air 07/24/17 00:00 97.0 61 18 105/64 98 Room Air Height (Feet): 5 Height (Inches): 5.00 Weight (Pounds): 250 Laboratory Tests Test 07/24/17 08:14 07/24/17 08:32 White Blood Count 3.5 K/UL (4.8-10.8) L Red Blood Count 4.40 M/UL (4.70-6.10) L Hemoglobin 14.2 G/DL (14.2-18.0) Hematocrit 42.3 % (42.0-52.0) Mean Corpuscular Volume 96 FL (80-99) Mean Corpuscular Hemoglobin 32.1 PG (27.0-31.0) H Mean Corpuscular Hemoglobin Concent 33.4 G/DL (32.0-36.0) Red Cell Distribution Width 12.4 % (11.6-14.8) Platelet Count 142 K/UL (150-450) L Mean Platelet Volume 7.9 FL (6.5-10.1) Neutrophils (%) (Auto) 58.5 % (45.0-75.0) Lymphocytes (%) (Auto) 26.4 % (20.0-45.0) Monocytes (%) (Auto) 11.2 % (1.0-10.0) H Eosinophils (%) (Auto) 2.9 % (0.0-3.0) Basophils (%) (Auto) 0.9 % (0.0-2.0) Prothrombin Time 12.3 SEC (9.30-11.50) H Prothromb Time International Ratio 1.2 (0.9-1.1) H Activated Partial Thromboplast Time 34 SEC (23-33) H Sodium Level 144 MMOL/L (136-145) Potassium Level 3.6 MMOL/L (3.5-5.1) Chloride Level 108 MMOL/L (98-107) H Carbon Dioxide Level 27 MMOL/L (21-32) Anion Gap 9 mmol/L (5-15) Blood Urea Nitrogen 6 mg/dL (7-18) L Creatinine 0.7 MG/DL (0.55-1.30) Estimat Glomerular Filtration Rate > 60 mL/min (>60) Glucose Level 87 MG/DL (74-106) Calcium Level 8.9 MG/DL (8.5-10.1) Total Bilirubin 0.9 MG/DL (0.2-1.0) Aspartate Amino Transf (AST/SGOT) 12 U/L (15-37) L Alanine Aminotransferase (ALT/SGPT) 18 U/L (12-78) Alkaline Phosphatase 51 U/L (46-116) Total Protein 6.5 G/DL (6.4-8.2) Albumin 3.3 G/DL (3.4-5.0) L Globulin 3.2 g/dL Albumin/Globulin Ratio 1.0 (1.0-2.7) Triglycerides Level 69 MG/DL (0-200) Cholesterol Level 118 MG/DL (< 200) LDL Cholesterol 67 mg/dL (<100) HDL Cholesterol 45 MG/DL (40-60) Cholesterol/HDL Ratio 2.6 (3.3-4.4) L Urine Color Pale yellow Urine Appearance Clear Urine pH 7 (4.5-8.0) Urine Specific [place] 1.005 (1.005-1.035) Urine Protein Negative (NEGATIVE) Urine Glucose (UA) Negative (NEGATIVE) Urine Ketones Negative (NEGATIVE) Urine Occult Blood Negative (NEGATIVE) Urine Nitrite Negative (NEGATIVE) Urine Bilirubin Negative (NEGATIVE) Urine Urobilinogen Normal MG/DL (0.0-1.0) Urine Leukocyte Esterase 1+ (NEGATIVE) H Urine RBC 0-2 /HPF (0 - 0) H Urine WBC 0-2 /HPF (0 - 0) Urine Squamous Epithelial Cells Occasional /LPF Urine Bacteria Occasional /HPF (NONE) Current Medications Medications (Trade) Dose Ordered Sig/Rachid Route PRN Reason Start Time Stop Time Status Last Admin Dose Admin Acetaminophen (Tylenol) 650 mg Q4H PRN ORAL T>100.5 F 07/23/17 13:15 08/22/17 13:14 Al Hydroxide/Mg Hydroxide (Mylanta II) 30 ml Q6H PRN ORAL dyspepsia 07/23/17 13:15 08/22/17 13:14 Dextrose (Dextrose 50%) STAT PRN IV Hypoglycemia 07/23/17 13:15 08/22/17 13:14 Dextrose/Sodium Chloride 1,000 ml @ 75 mls/hr [id number] IV 07/23/17 18:30 08/22/17 18:29 07/24/17 20:21 Divalproex Sodium (Depakote Sprinkles) 125 mg Q12HR ORAL 07/23/17 14:00 08/22/17 13:59 Famotidine (Pepcid I.v.) 20 mg Q12HR IVP 07/23/17 21:00 08/22/17 20:59 07/24/17 20:21 Heparin Sodium (Porcine) (Heparin 5000 units/ml) 5,000 units EVERY 12 HOURS SUBQ 07/23/17 21:00 08/22/17 20:59 07/24/17 20:22 Insulin Aspart (NovoLOG) BEFORE MEALS AND HS SUBQ 07/23/17 16:30 08/22/17 16:29 Lorazepam (Ativan 2mg/ml 1ml) 0.5 mg Q4H PRN IV For Anxiety 07/23/17 13:15 07/30/17 13:14 Morphine Sulfate (Morphine Sulfate) 1 mg Q4H PRN IVP PAIN 4-10 07/23/17 13:15 07/30/17 13:14 Ondansetron HCl (Zofran) 4 mg Q6H PRN IVP Nausea & Vomiting 07/23/17 13:15 08/22/17 13:14 Polyethylene Glycol (Miralax) 17 gm HSPRN PRN ORAL Constipation 07/23/17 21:00 08/22/17 20:59 Zolpidem Tartrate (Ambien) 5 mg HSPRN PRN ORAL Insomnia 07/23/17 21:00 07/30/17 20:59 KADI GARCIA Jul 24, 2017 23:40
[2017-07-25] VITALS: BP 99/50
[2017-07-25 04:00] VITALS: BP 90/60
[2017-07-25] MEDS: NovoLOG Insulin Flexpen SUBQ SCH ×4 (06:30→21:00)
[2017-07-25 07:13] LABS: ANION GAP 8 mmol/L (5-15); CALCIUM 8.9 MG/DL (8.5-10.1); CARBON DIOXIDE 26 MMOL/L (21-32); CHLORIDE 108 MMOL/L (98-107); CREATININE 0.6 MG/DL (0.55-1.30); GLOMERULAR FILTRATION RATE > 60 mL/min (>60); POTASSIUM 3.4 MMOL/L (3.5-5.1); SODIUM 142 MMOL/L (136-145)
[2017-07-25 07:23] LABS: BASOPHILS % (AUTO) 0.6 % (0.0-2.0); EOSINOPHILS % (AUTO) 5.7 % (0.0-3.0); LYMPHOCYTES % (AUTO) 33.6 % (20.0-45.0); MEAN CORPUSCULAR HEMOGLOBIN 32.3 PG (27.0-31.0); MEAN CORPUSCULAR HGB CONC 33.8 G/DL (32.0-36.0); MEAN CORPUSCULAR VOLUME 96 FL (80-99); MEAN PLATELET VOLUME 8.9 FL (6.5-10.1); MONOCYTES % (AUTO) 12.7 % (1.0-10.0); NEUTROPHILS % (AUTO) 47.3 % (45.0-75.0); PLATELET COUNT 138 K/UL (150-450); RED BLOOD COUNT 4.08 M/UL (4.70-6.10); RED CELL DISTRIBUTION WIDTH 11.9 % (11.6-14.8); WHITE BLOOD COUNT 3.6 K/UL (4.8-10.8)
--- NOTE | 2017-07-25 07:59 | Pulmonology Progress Note ---
Assessment/Plan Assessment/Plan ASSESSMENT Dysphagia possible foreign body-ruled out dehydration r/o occult malignancy dementia DM seizure disorder cerebral palsy thyroid mass PLAN OF CARE MS floor IVF CXR with possible FB but CT C/A/P revealed wire from spinal stimulator as presumed FB , + thyroid mass get thyroid US K replaced, check K and Mg in am neuro eval appreciated CT head - Negative for acute intracranial bleed or mass effect. 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 Left frontal encephalomalacia, likely related to the above. EEG seizure precautions GI follows H2B EGD cancelled since CT did not conform presence of FB swallow eval and video swallow DVT prophylaxis pain management bowel regimen BS management with SS of insulin PT/OT case discussed and evaluated by supervising physician Subjective Allergies: Coded Allergies: PENICILLINS (Verified Allergy, Unknown, 07/23/17) Subjective no signs of distress Objective Last 24 Hour Vital Signs Date Time Temp Pulse Resp B/P (MAP) Pulse Ox O2 Delivery O2 Flow Rate FiO2 07/25/17 04:00 98.6 55 21 90/60 97 Room Air 07/25/17 00:00 96.4 76 20 99/50 89 Room Air 07/24/17 20:00 97.0 55 20 101/67 95 Nasal Cannula 3.0 07/24/17 16:00 96.0 54 16 87/51 96 07/24/17 12:00 98.0 68 18 121/71 97 Room Air 07/24/17 08:00 97.3 65 18 118/69 98 Room Air Objective General Appearance: no acute distress, other - bedridden, awake, confused HEENT: normocephalic, anicteric Respiratory/Chest: lungs clear, no respiratory distress, no accessory muscle use Cardiovascular: no JVD Abdomen: normal bowel sounds, soft, non tender Genitourinary: normal external genitalia Extremities: no edema Neurologic/Psychiatric: abnormal gait, alert, responsive, confused and disoriented Laboratory Tests 07/24/17 08:14: White Blood Count 3.5L, Red Blood Count 4.40L, Hemoglobin 14.2, Hematocrit 42.3 , Mean Corpuscular Volume 96, Mean Corpuscular Hemoglobin 32.1H, Mean Corpuscular Hemoglobin Concent 33.4, Red Cell Distribution Width 12.4, Platelet Count 142L, Mean Platelet Volume 7.9, Neutrophils (%) (Auto) 58.5, Lymphocytes ( %) (Auto) 26.4, Monocytes (%) (Auto) 11.2H, Eosinophils (%) (Auto) 2.9, Basophils (%) (Auto) 0.9, Prothrombin Time 12.3H, Prothromb Time International Ratio 1.2H, Activated Partial Thromboplast Time 34H, Sodium Level 144, Potassium Level 3.6, Chloride Level 108H, Carbon Dioxide Level 27, Anion Gap 9, Blood Urea Nitrogen 6L, Creatinine 0.7, Estimat Glomerular Filtration Rate > 60 , Glucose Level 87, Calcium Level 8.9, Total Bilirubin 0.9, Aspartate Amino Transf (AST/SGOT) 12L, Alanine Aminotransferase (ALT/SGPT) 18, Alkaline Phosphatase 51, Total Protein 6.5, Albumin 3.3L, Globulin 3.2, Albumin/Globulin Ratio 1.0, Triglycerides Level 69, Cholesterol Level 118, LDL Cholesterol 67, HDL Cholesterol 45, Cholesterol/HDL Ratio 2.6L 07/24/17 08:32: Urine Color Pale yellow, Urine Appearance Clear, Urine pH 7, Urine Specific [place] 1.005, Urine Protein Negative, Urine Glucose (UA) Negative, Urine Ketones Negative, Urine Occult Blood Negative, Urine Nitrite Negative, Urine Bilirubin Negative, Urine Urobilinogen Normal, Urine Leukocyte Esterase 1+H, Urine RBC 0-2H, Urine WBC 0-2, Urine Squamous Epithelial Cells Occasional, Urine Bacteria Occasional 07/25/17 04:55: White Blood Count 3.6L, Red Blood Count 4.08L, Hemoglobin 13.2L, Hematocrit 39.1L, Mean Corpuscular Volume 96, Mean Corpuscular Hemoglobin 32.3H, Mean Corpuscular Hemoglobin Concent 33.8, Red Cell Distribution Width 11.9, Platelet Count 138L, Mean Platelet Volume 8.9, Neutrophils (%) (Auto) 47.3, Lymphocytes ( %) (Auto) 33.6, Monocytes (%) (Auto) 12.7H, Eosinophils (%) (Auto) 5.7H, Basophils (%) (Auto) 0.6, Sodium Level 142, Potassium Level 3.4L, Chloride Level 108H, Carbon Dioxide Level 26, Anion Gap 8, Blood Urea Nitrogen 5L, Creatinine 0.6, Estimat Glomerular Filtration Rate > 60, Glucose Level 88, Calcium Level 8.9 Current Medications Medications (Trade) Dose Ordered Sig/Rachid Route PRN Reason Start Time Stop Time Status Last Admin Dose Admin Acetaminophen (Tylenol) 650 mg Q4H PRN ORAL T>100.5 F 07/23/17 13:15 08/22/17 13:14 Al Hydroxide/Mg Hydroxide (Mylanta II) 30 ml Q6H PRN ORAL dyspepsia 07/23/17 13:15 08/22/17 13:14 Dextrose (Dextrose 50%) STAT PRN IV Hypoglycemia 07/23/17 13:15 08/22/17 13:14 Dextrose/Sodium Chloride 1,000 ml @ 75 mls/hr [id number] IV 07/23/17 18:30 08/22/17 18:29 07/24/17 20:21 Divalproex Sodium (Depakote Sprinkles) 125 mg Q12HR ORAL 07/23/17 14:00 08/22/17 13:59 Famotidine (Pepcid I.v.) 20 mg Q12HR IVP 07/23/17 21:00 08/22/17 20:59 07/24/17 20:21 Heparin Sodium (Porcine) (Heparin 5000 units/ml) 5,000 units EVERY 12 HOURS SUBQ 07/23/17 21:00 08/22/17 20:59 07/24/17 20:22 Insulin Aspart (NovoLOG) BEFORE MEALS AND HS SUBQ 07/23/17 16:30 08/22/17 16:29 Lorazepam (Ativan 2mg/ml 1ml) 0.5 mg Q4H PRN IV For Anxiety 07/23/17 13:15 07/30/17 13:14 Morphine Sulfate (Morphine Sulfate) 1 mg Q4H PRN IVP PAIN 4-10 07/23/17 13:15 07/30/17 13:14 Ondansetron HCl (Zofran) 4 mg Q6H PRN IVP Nausea & Vomiting 07/23/17 13:15 08/22/17 13:14 Polyethylene Glycol (Miralax) 17 gm HSPRN PRN ORAL Constipation 07/23/17 21:00 08/22/17 20:59 Zolpidem Tartrate (Ambien) 5 mg HSPRN PRN ORAL Insomnia 07/23/17 21:00 07/30/17 20:59 Rangel Iglesias)Lissette NP Jul 25, 2017 07:59
[2017-07-25 08:40] VITALS: BP 108/58
[2017-07-25] MEDS: Heparin 5000 units/ml inj SUBQ SCH ×2 (09:00→21:00)
[2017-07-25] MEDS: Depakote 125mg Sprinkles ORAL SCH ×2 (09:00→20:45)
[2017-07-25] MEDS: D5 1/2NS 1,000 ML IV SCH ×2 (09:15→23:20)
[2017-07-25] MEDS ORDERED: D5 1/2NS 1000ml IV ONE (09:20)
--- NOTE | 2017-07-25 11:22 | General Progress Note ---
Assessment/Plan Problem List: (1) Cerebral palsy ICD Codes: G80.9 - Cerebral palsy, unspecified SNOMED: 747494140 (2) UTI (urinary tract infection) ICD Codes: N39.0 - Urinary tract infection, site not specified SNOMED: 18859789 (3) Malnutrition ICD Codes: E46 - Unspecified protein-calorie malnutrition SNOMED: 9511379 (4) Anemia ICD Codes: D64.9 - Anemia, unspecified SNOMED: 931437008 (5) Dysphagia ICD Codes: R13.10 - Dysphagia, unspecified SNOMED: 39747993, 129151921 (6) Foreign body SNOMED: 225382994 (7) Failure to thrive SNOMED: 78496663 Status: unchanged Assessment/Plan ot pt diet abx cbc bmp am heme eval Subjective Constitutional: Reports: weakness Allergies: Coded Allergies: PENICILLINS (Verified Allergy, Unknown, 07/23/17) All Systems: reviewed and negative except above Subjective sl confused Objective Last 24 Hour Vital Signs Date Time Temp Pulse Resp B/P (MAP) Pulse Ox O2 Delivery O2 Flow Rate FiO2 07/25/17 08:40 97.0 51 20 108/58 100 Room Air 07/25/17 04:00 98.6 55 21 90/60 97 Room Air 07/25/17 00:00 96.4 76 20 99/50 89 Room Air 07/24/17 20:00 97.0 55 20 101/67 95 Nasal Cannula 3.0 07/24/17 16:00 96.0 54 16 87/51 96 07/24/17 12:00 98.0 68 18 121/71 97 Room Air Laboratory Tests 07/25/17 04:55: White Blood Count 3.6L, Red Blood Count 4.08L, Hemoglobin 13.2L, Hematocrit 39.1L, Mean Corpuscular Volume 96, Mean Corpuscular Hemoglobin 32.3H, Mean Corpuscular Hemoglobin Concent 33.8, Red Cell Distribution Width 11.9, Platelet Count 138L, Mean Platelet Volume 8.9, Neutrophils (%) (Auto) 47.3, Lymphocytes ( %) (Auto) 33.6, Monocytes (%) (Auto) 12.7H, Eosinophils (%) (Auto) 5.7H, Basophils (%) (Auto) 0.6, Sodium Level 142, Potassium Level 3.4L, Chloride Level 108H, Carbon Dioxide Level 26, Anion Gap 8, Blood Urea Nitrogen 5L, Creatinine 0.6, Estimat Glomerular Filtration Rate > 60, Glucose Level 88, Calcium Level 8.9 Height (Feet): 5 Height (Inches): 5.00 Weight (Pounds): 250 General Appearance: lethargic EENT: normal ENT inspection Neck: normal alignment Cardiovascular: normal peripheral pulses, normal rate, regular rhythm Respiratory/Chest: chest wall non-tender, lungs clear, normal breath sounds Abdomen: normal bowel sounds, non tender, soft Extremities: normal inspection Edema: no edema noted Arm (L), no edema noted Arm (R), no edema noted Leg (L), no edema noted Leg (R), no edema noted Pedal (L), no edema noted Pedal (R), no edema noted Generalized Neurologic: responsive, motor weakness Skin: normal pigmentation, warm/dry IRLANDA URIAS Jul 25, 2017 11:22
[2017-07-25 11:25] VITALS: BP 103/57
[2017-07-25 16:04] VITALS: BP 98/60
--- NOTE | 2017-07-25 18:27 | General Progress Note ---
Assessment/Plan Assessment/Plan Assessment - Malnutrition - cerebral palsy - possible foreign body on imaging Recommendations - push po - possible PEG placement Subjective Allergies: Coded Allergies: PENICILLINS (Verified Allergy, Unknown, 07/23/17) Subjective No new complaints no abdominal pain Objective Last 24 Hour Vital Signs Date Time Temp Pulse Resp B/P (MAP) Pulse Ox O2 Delivery O2 Flow Rate FiO2 07/25/17 16:04 97.5 51 20 98/60 98 Room Air 07/25/17 11:25 97.2 67 21 103/57 99 Room Air 07/25/17 08:40 97.0 51 20 108/58 100 Room Air 07/25/17 04:00 98.6 55 21 90/60 97 Room Air 07/25/17 00:00 96.4 76 20 99/50 89 Room Air 07/24/17 20:00 97.0 55 20 101/67 95 Nasal Cannula 3.0 Intake and Output 07/25/17 07/26/17 19:00 07:00 Intake Total 0 ml Output Total 750 ml Balance -750 ml Intake Oral 0 ml Output Urine Total 750 ml Laboratory Tests 07/25/17 04:55: White Blood Count 3.6L, Red Blood Count 4.08L, Hemoglobin 13.2L, Hematocrit 39.1L, Mean Corpuscular Volume 96, Mean Corpuscular Hemoglobin 32.3H, Mean Corpuscular Hemoglobin Concent 33.8, Red Cell Distribution Width 11.9, Platelet Count 138L, Mean Platelet Volume 8.9, Neutrophils (%) (Auto) 47.3, Lymphocytes ( %) (Auto) 33.6, Monocytes (%) (Auto) 12.7H, Eosinophils (%) (Auto) 5.7H, Basophils (%) (Auto) 0.6, Sodium Level 142, Potassium Level 3.4L, Chloride Level 108H, Carbon Dioxide Level 26, Anion Gap 8, Blood Urea Nitrogen 5L, Creatinine 0.6, Estimat Glomerular Filtration Rate > 60, Glucose Level 88, Calcium Level 8.9 Height (Feet): 5 Height (Inches): 5.00 Weight (Pounds): 250 BIANCA AYON Jul 25, 2017 18:27
[2017-07-25 20:00] VITALS: BP 95/59
--- NOTE | 2017-07-25 23:54 | Infectious Diseases Prog Note ---
Assessment/Plan Problems: (1) Dysphagia Assessment & Plan: Etiology? Doubt cutaneous Candidiasis. (2) Failure to thrive (3) Cerebral palsy (4) Bacteriuria Assessment & Plan: Asymptomatic. Hold off on antibiotics. Subjective Allergies: Coded Allergies: PENICILLINS (Verified Allergy, Unknown, 07/23/17) Objective Vital Signs Last 24 Hour Vital Signs Date Time Temp Pulse Resp B/P (MAP) Pulse Ox O2 Delivery O2 Flow Rate FiO2 07/25/17 20:00 97.2 53 20 95/59 98 Room Air 07/25/17 16:04 97.5 51 20 98/60 98 Room Air 07/25/17 11:25 97.2 67 21 103/57 99 Room Air 07/25/17 08:40 97.0 51 20 108/58 100 Room Air 07/25/17 04:00 98.6 55 21 90/60 97 Room Air 07/25/17 00:00 96.4 76 20 99/50 89 Room Air Height (Feet): 5 Height (Inches): 5.00 Weight (Pounds): 250 Laboratory Tests Test 07/25/17 04:55 White Blood Count 3.6 K/UL (4.8-10.8) L Red Blood Count 4.08 M/UL (4.70-6.10) L Hemoglobin 13.2 G/DL (14.2-18.0) L Hematocrit 39.1 % (42.0-52.0) L Mean Corpuscular Volume 96 FL (80-99) Mean Corpuscular Hemoglobin 32.3 PG (27.0-31.0) H Mean Corpuscular Hemoglobin Concent 33.8 G/DL (32.0-36.0) Red Cell Distribution Width 11.9 % (11.6-14.8) Platelet Count 138 K/UL (150-450) L Mean Platelet Volume 8.9 FL (6.5-10.1) Neutrophils (%) (Auto) 47.3 % (45.0-75.0) Lymphocytes (%) (Auto) 33.6 % (20.0-45.0) Monocytes (%) (Auto) 12.7 % (1.0-10.0) H Eosinophils (%) (Auto) 5.7 % (0.0-3.0) H Basophils (%) (Auto) 0.6 % (0.0-2.0) Sodium Level 142 MMOL/L (136-145) Potassium Level 3.4 MMOL/L (3.5-5.1) L Chloride Level 108 MMOL/L (98-107) H Carbon Dioxide Level 26 MMOL/L (21-32) Anion Gap 8 mmol/L (5-15) Blood Urea Nitrogen 5 mg/dL (7-18) L Creatinine 0.6 MG/DL (0.55-1.30) Estimat Glomerular Filtration Rate > 60 mL/min (>60) Glucose Level 88 MG/DL (74-106) Calcium Level 8.9 MG/DL (8.5-10.1) Current Medications Medications (Trade) Dose Ordered Sig/Rachid Route PRN Reason Start Time Stop Time Status Last Admin Dose Admin Acetaminophen (Tylenol) 650 mg Q4H PRN ORAL T>100.5 F 07/23/17 13:15 08/22/17 13:14 Al Hydroxide/Mg Hydroxide (Mylanta II) 30 ml Q6H PRN ORAL dyspepsia 07/23/17 13:15 08/22/17 13:14 Dextrose (Dextrose 50%) STAT PRN IV Hypoglycemia 07/23/17 13:15 08/22/17 13:14 Dextrose/Sodium Chloride 1,000 ml @ 75 mls/hr [id number] IV 07/23/17 18:30 08/22/17 18:29 07/25/17 23:20 Divalproex Sodium (Depakote Sprinkles) 125 mg Q12HR ORAL 07/23/17 14:00 08/22/17 13:59 Famotidine (Pepcid I.v.) 20 mg Q12HR IVP 07/23/17 21:00 08/22/17 20:59 07/25/17 21:01 Heparin Sodium (Porcine) (Heparin 5000 units/ml) 5,000 units EVERY 12 HOURS SUBQ 07/23/17 21:00 08/22/17 20:59 07/24/17 20:22 Insulin Aspart (NovoLOG) BEFORE MEALS AND HS SUBQ 07/23/17 16:30 08/22/17 16:29 Lorazepam (Ativan 2mg/ml 1ml) 0.5 mg Q4H PRN IV For Anxiety 07/23/17 13:15 07/30/17 13:14 Mirtazapine (Remeron) 15 mg BEDTIME ORAL 07/25/17 21:00 08/24/17 20:59 Morphine Sulfate (Morphine Sulfate) 1 mg Q4H PRN IVP PAIN 4-10 07/23/17 13:15 07/30/17 13:14 Ondansetron HCl (Zofran) 4 mg Q6H PRN IVP Nausea & Vomiting 07/23/17 13:15 08/22/17 13:14 Polyethylene Glycol (Miralax) 17 gm HSPRN PRN ORAL Constipation 07/23/17 21:00 08/22/17 20:59 Zolpidem Tartrate (Ambien) 5 mg HSPRN PRN ORAL Insomnia 07/23/17 21:00 07/30/17 20:59 KADI GARCIA Jul 25, 2017 23:54
[2017-07-26] VITALS: BP 97/55
[2017-07-26 03:41] VITALS: BP 95/63
[2017-07-26] MEDS: NovoLOG Insulin Flexpen SUBQ SCH ×4 (05:53→20:02)
[2017-07-26 08:01] LABS: BASOPHILS % (AUTO) 0.7 % (0.0-2.0); EOSINOPHILS % (AUTO) 5.8 % (0.0-3.0); LYMPHOCYTES % (AUTO) 34.9 % (20.0-45.0); MEAN CORPUSCULAR HEMOGLOBIN 32.4 PG (27.0-31.0); MEAN CORPUSCULAR HGB CONC 33.6 G/DL (32.0-36.0); MEAN CORPUSCULAR VOLUME 96 FL (80-99); MEAN PLATELET VOLUME 9.2 FL (6.5-10.1); MONOCYTES % (AUTO) 10.8 % (1.0-10.0); NEUTROPHILS % (AUTO) 47.8 % (45.0-75.0); PLATELET COUNT 170 K/UL (150-450); RED BLOOD COUNT 4.66 M/UL (4.70-6.10); RED CELL DISTRIBUTION WIDTH 12.2 % (11.6-14.8); WHITE BLOOD COUNT 3.8 K/UL (4.8-10.8)
--- NOTE | 2017-07-26 08:03 | Pulmonology Progress Note ---
Assessment/Plan Assessment/Plan ASSESSMENT Dysphagia possible foreign body-ruled out dehydration r/o occult malignancy dementia DM seizure disorder cerebral palsy thyroid mass PLAN OF CARE MS floor IVF CXR with possible FB but CT C/A/P revealed wire from spinal stimulator as presumed FB , + thyroid mass get thyroid US K replaced, check K and Mg in am neuro eval appreciated CT head - Negative for acute intracranial bleed or mass effect. 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 Left frontal encephalomalacia, likely related to the above. EEG seizure precautions GI follows H2B EGD cancelled since CT did not conform presence of FB swallow eval and video swallow DVT prophylaxis pain management bowel regimen BS management with SS of insulin PT/OT case discussed and evaluated by supervising physician Subjective Allergies: Coded Allergies: PENICILLINS (Verified Allergy, Unknown, 07/23/17) Subjective no signs of distress VSS pulse oximetry stable on RA VSS pending Objective Last 24 Hour Vital Signs Date Time Temp Pulse Resp B/P (MAP) Pulse Ox O2 Delivery O2 Flow Rate FiO2 07/26/17 03:41 96.6 60 20 95/63 95 Room Air 07/26/17 00:00 97.3 56 20 97/55 97 Room Air 07/25/17 20:00 97.2 53 20 95/59 98 Room Air 07/25/17 16:04 97.5 51 20 98/60 98 Room Air 07/25/17 11:25 97.2 67 21 103/57 99 Room Air 07/25/17 08:40 97.0 51 20 108/58 100 Room Air Objective General Appearance: no acute distress, other - bedridden, awake, confused HEENT: normocephalic, anicteric Respiratory/Chest: lungs clear, no respiratory distress, no accessory muscle use Cardiovascular: no JVD Abdomen: normal bowel sounds, soft, non tender Genitourinary: normal external genitalia Extremities: no edema Neurologic/Psychiatric: abnormal gait, alert, responsive, confused and disoriented Laboratory Tests 07/26/17 05:20: White Blood Count [Pending], Red Blood Count [Pending], Hemoglobin [Pending], Hematocrit [Pending], Mean Corpuscular Volume [Pending], Mean Corpuscular Hemoglobin [Pending], Mean Corpuscular Hemoglobin Concent [Pending], Red Cell Distribution Width [Pending], Platelet Count [Pending], Mean Platelet Volume [ Pending], Neutrophils (%) (Auto) [Pending], Lymphocytes (%) (Auto) [Pending], Monocytes (%) (Auto) [Pending], Eosinophils (%) (Auto) [Pending], Basophils (%) (Auto) [Pending], Sodium Level [Pending], Potassium Level [Pending], Chloride Level [Pending], Carbon Dioxide Level [Pending], Blood Urea Nitrogen [Pending], Creatinine [Pending], Estimat Glomerular Filtration Rate [Pending], Glucose Level [Pending], Calcium Level [Pending], Magnesium Level [Pending] Current Medications Medications (Trade) Dose Ordered Sig/Rachid Route PRN Reason Start Time Stop Time Status Last Admin Dose Admin Acetaminophen (Tylenol) 650 mg Q4H PRN ORAL T>100.5 F 07/23/17 13:15 08/22/17 13:14 Al Hydroxide/Mg Hydroxide (Mylanta II) 30 ml Q6H PRN ORAL dyspepsia 07/23/17 13:15 08/22/17 13:14 Dextrose (Dextrose 50%) STAT PRN IV Hypoglycemia 07/23/17 13:15 08/22/17 13:14 Dextrose/Sodium Chloride 1,000 ml @ 75 mls/hr [id number] IV 07/23/17 18:30 08/22/17 18:29 07/25/17 23:20 Divalproex Sodium (Depakote Sprinkles) 125 mg Q12HR ORAL 07/23/17 14:00 08/22/17 13:59 Famotidine (Pepcid I.v.) 20 mg Q12HR IVP 07/23/17 21:00 08/22/17 20:59 07/25/17 21:01 Heparin Sodium (Porcine) (Heparin 5000 units/ml) 5,000 units EVERY 12 HOURS SUBQ 07/23/17 21:00 08/22/17 20:59 07/24/17 20:22 Insulin Aspart (NovoLOG) BEFORE MEALS AND HS SUBQ 07/23/17 16:30 08/22/17 16:29 Lorazepam (Ativan 2mg/ml 1ml) 0.5 mg Q4H PRN IV For Anxiety 07/23/17 13:15 07/30/17 13:14 Mirtazapine (Remeron) 15 mg BEDTIME ORAL 07/25/17 21:00 08/24/17 20:59 Morphine Sulfate (Morphine Sulfate) 1 mg Q4H PRN IVP PAIN 4-10 07/23/17 13:15 07/30/17 13:14 Ondansetron HCl (Zofran) 4 mg Q6H PRN IVP Nausea & Vomiting 07/23/17 13:15 08/22/17 13:14 Polyethylene Glycol (Miralax) 17 gm HSPRN PRN ORAL Constipation 07/23/17 21:00 08/22/17 20:59 Zolpidem Tartrate (Ambien) 5 mg HSPRN PRN ORAL Insomnia 07/23/17 21:00 07/30/17 20:59 Rangel (Lissette Alford NP Jul 26, 2017 08:03
[2017-07-26 08:10] LABS: ANION GAP 9 mmol/L (5-15); CALCIUM 9.2 MG/DL (8.5-10.1); CARBON DIOXIDE 28 MMOL/L (21-32); CHLORIDE 108 MMOL/L (98-107); CREATININE 0.8 MG/DL (0.55-1.30); GLOMERULAR FILTRATION RATE > 60 mL/min (>60); MAGNESIUM 1.7 MG/DL (1.8-2.4); POTASSIUM 3.7 MMOL/L (3.5-5.1); SODIUM 145 MMOL/L (136-145)
[2017-07-26 08:14] VITALS: BP 106/64
[2017-07-26] MEDS: Heparin 5000 units/ml inj SUBQ SCH ×2 (08:31→20:10)
[2017-07-26] MEDS: Depakote 125mg Sprinkles ORAL SCH (08:33)
--- NOTE | 2017-07-26 09:42 | General Progress Note ---
Assessment/Plan Problem List: (1) Cerebral palsy ICD Codes: G80.9 - Cerebral palsy, unspecified SNOMED: 831676194 (2) UTI (urinary tract infection) ICD Codes: N39.0 - Urinary tract infection, site not specified SNOMED: 70502363 (3) Malnutrition ICD Codes: E46 - Unspecified protein-calorie malnutrition SNOMED: 8330644 (4) Anemia ICD Codes: D64.9 - Anemia, unspecified SNOMED: 405720405 (5) Dysphagia ICD Codes: R13.10 - Dysphagia, unspecified SNOMED: 26296574, 545763453 (6) Foreign body SNOMED: 930187865 (7) Failure to thrive SNOMED: 24683242 Status: stable, progressing, tolerating diet Assessment/Plan ot pt diet abx cbc bmp am heme eval Subjective Constitutional: Reports: weakness Allergies: Coded Allergies: PENICILLINS (Verified Allergy, Unknown, 07/23/17) All Systems: reviewed and negative except above Subjective sl confused Objective Last 24 Hour Vital Signs Date Time Temp Pulse Resp B/P (MAP) Pulse Ox O2 Delivery O2 Flow Rate FiO2 07/26/17 08:14 97.5 58 20 106/64 99 Room Air 07/26/17 03:41 96.6 60 20 95/63 95 Room Air 07/26/17 00:00 97.3 56 20 97/55 97 Room Air 07/25/17 20:00 97.2 53 20 95/59 98 Room Air 07/25/17 16:04 97.5 51 20 98/60 98 Room Air 07/25/17 11:25 97.2 67 21 103/57 99 Room Air Laboratory Tests 07/26/17 05:20: White Blood Count 3.8L, Red Blood Count 4.66L, Hemoglobin 15.1, Hematocrit 44.9 , Mean Corpuscular Volume 96, Mean Corpuscular Hemoglobin 32.4H, Mean Corpuscular Hemoglobin Concent 33.6, Red Cell Distribution Width 12.2, Platelet Count 170, Mean Platelet Volume 9.2, Neutrophils (%) (Auto) 47.8, Lymphocytes (% ) (Auto) 34.9, Monocytes (%) (Auto) 10.8H, Eosinophils (%) (Auto) 5.8H, Basophils (%) (Auto) 0.7, Sodium Level 145, Potassium Level 3.7, Chloride Level 108H, Carbon Dioxide Level 28, Anion Gap 9, Blood Urea Nitrogen 4L, Creatinine 0.8, Estimat Glomerular Filtration Rate > 60, Glucose Level 81, Calcium Level 9.2, Magnesium Level 1.7L Height (Feet): 5 Height (Inches): 5.00 Weight (Pounds): 250 General Appearance: lethargic Neck: normal inspection Cardiovascular: normal peripheral pulses, normal rate, regular rhythm Respiratory/Chest: chest wall non-tender, lungs clear, normal breath sounds Abdomen: normal bowel sounds, non tender, soft Extremities: normal inspection Edema: no edema noted Arm (L), no edema noted Arm (R), no edema noted Leg (L), no edema noted Leg (R), no edema noted Pedal (L), no edema noted Pedal (R), no edema noted Generalized Neurologic: responsive, motor weakness Skin: normal pigmentation, warm/dry IRLANDA URIAS Jul 26, 2017 09:42
[2017-07-26 11:24] VITALS: BP 115/63
[2017-07-26] MEDS: D5 1/2NS 1,000 ML IV SCH (13:05)
--- NOTE | 2017-07-26 15:52 | Neurology Progress Note ---
Interim History Interim History ROS Limited/Unobtainable: Yes Complaints: feel ok Events: stable dysphagia Objective Physical Exam Last Vital Signs Date Time Temp Pulse Resp B/P (MAP) Pulse Ox O2 Delivery O2 Flow Rate FiO2 07/26/17 11:24 97.6 67 21 115/63 98 Room Air 07/24/17 20:00 3.0 Laboratory Tests Test 07/26/17 05:20 White Blood Count 3.8 K/UL (4.8-10.8) L Red Blood Count 4.66 M/UL (4.70-6.10) L Hemoglobin 15.1 G/DL (14.2-18.0) Hematocrit 44.9 % (42.0-52.0) Mean Corpuscular Volume 96 FL (80-99) Mean Corpuscular Hemoglobin 32.4 PG (27.0-31.0) H Mean Corpuscular Hemoglobin Concent 33.6 G/DL (32.0-36.0) Red Cell Distribution Width 12.2 % (11.6-14.8) Platelet Count 170 K/UL (150-450) Mean Platelet Volume 9.2 FL (6.5-10.1) Neutrophils (%) (Auto) 47.8 % (45.0-75.0) Lymphocytes (%) (Auto) 34.9 % (20.0-45.0) Monocytes (%) (Auto) 10.8 % (1.0-10.0) H Eosinophils (%) (Auto) 5.8 % (0.0-3.0) H Basophils (%) (Auto) 0.7 % (0.0-2.0) Sodium Level 145 MMOL/L (136-145) Potassium Level 3.7 MMOL/L (3.5-5.1) Chloride Level 108 MMOL/L (98-107) H Carbon Dioxide Level 28 MMOL/L (21-32) Anion Gap 9 mmol/L (5-15) Blood Urea Nitrogen 4 mg/dL (7-18) L Creatinine 0.8 MG/DL (0.55-1.30) Estimat Glomerular Filtration Rate > 60 mL/min (>60) Glucose Level 81 MG/DL (74-106) Calcium Level 9.2 MG/DL (8.5-10.1) Magnesium Level 1.7 MG/DL (1.8-2.4) L General: well developed, no acute distress, other - cachectic, neck dyskinesia Head: atraumatic, other - L irene hole Neck: other - rigidity Neurologic Exam Mental Status: awake, alert, other - very confused ox1 dysarthria Speech: other - limited output Language: other - word finding difficulty Cranial Nerve II: no papilledema Cranial Nerves III, IV, : pupils Cranial Nerve V: normal facial sensations Cranial Nerve VII: other - L droop Cranial Nerve VIII: no nystagmus Cranial Nerve IX: other - poor gag Cranial Nerve X: other Cranial Nerve XI: trapezii function normal Cranial Nerve XII: no tongue atrophy/fasciculations Motor System: other - diffise rigidity L>R Sensory: normal pinprick Coordination: other Deep Tendon Reflexes: 3+ bicep (L), 3+ bicep (R), 3+ tricep (L), 3+ tricep (R) , 3+ brachioradialis (L), 3+ brachioradialis (R), 3+ knee (L), 3+ knee (R), 3+ ankle (L), 3+ ankle (R) Reflexes: mute plantar (L), mute plantar (R) Stance: other Gait: other Impression/Recommendations Problems: (1) 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
[2017-07-26 16:08] VITALS: BP 118/57
[2017-07-26] MEDS: Valproate Sodium INJ 500 MG in D5W 55 ML IVPB SCH (16:28)
[2017-07-26] MEDS ORDERED: Tubing IV Secondary IV ONE (17:24)
[2017-07-26] MEDS ORDERED: D5 1/2NS 1000ml IV ONE (17:24)
--- NOTE | 2017-07-26 19:30 | General Progress Note ---
Assessment/Plan Assessment/Plan Assessment - Malnutrition - cerebral palsy - possible foreign body on imaging Recommendations - await swallow study - possible PEG placement Subjective Allergies: Coded Allergies: PENICILLINS (Verified Allergy, Unknown, 07/23/17) Subjective No new complaints no abdominal pain Objective Last 24 Hour Vital Signs Date Time Temp Pulse Resp B/P (MAP) Pulse Ox O2 Delivery O2 Flow Rate FiO2 07/26/17 16:08 97.8 61 20 118/57 97 Room Air 07/26/17 11:24 97.6 67 21 115/63 98 Room Air 07/26/17 08:14 97.5 58 20 106/64 99 Room Air 07/26/17 03:41 96.6 60 20 95/63 95 Room Air 07/26/17 00:00 97.3 56 20 97/55 97 Room Air 07/25/17 20:00 97.2 53 20 95/59 98 Room Air Intake and Output 07/26/17 07/27/17 19:00 07:00 Intake Total 960 ml Output Total 1000 ml Balance -40 ml Intake Oral 0 ml IV Total 960 ml Output Urine Total 1000 ml # Bowel Movements 1 Laboratory Tests 07/26/17 05:20: White Blood Count 3.8L, Red Blood Count 4.66L, Hemoglobin 15.1, Hematocrit 44.9 , Mean Corpuscular Volume 96, Mean Corpuscular Hemoglobin 32.4H, Mean Corpuscular Hemoglobin Concent 33.6, Red Cell Distribution Width 12.2, Platelet Count 170, Mean Platelet Volume 9.2, Neutrophils (%) (Auto) 47.8, Lymphocytes (% ) (Auto) 34.9, Monocytes (%) (Auto) 10.8H, Eosinophils (%) (Auto) 5.8H, Basophils (%) (Auto) 0.7, Sodium Level 145, Potassium Level 3.7, Chloride Level 108H, Carbon Dioxide Level 28, Anion Gap 9, Blood Urea Nitrogen 4L, Creatinine 0.8, Estimat Glomerular Filtration Rate > 60, Glucose Level 81, Calcium Level 9.2, Magnesium Level 1.7L Height (Feet): 5 Height (Inches): 5.00 Weight (Pounds): 250 Objective Debilitated WM NCAT temporal wasting supple CTA RRR Soft ND NT no edema BIANCA AYON Jul 26, 2017 19:30
[2017-07-26 20:00] VITALS: BP 96/58
[2017-07-26] MEDS ORDERED: Depakote 125mg Sprinkles ORAL SCH (21:00)
[2017-07-27] VITALS: BP 109/53
[2017-07-27] MEDS: D5 1/2NS 1,000 ML IV SCH ×2 (03:00→15:44)
[2017-07-27 04:00] VITALS: BP 112/60
[2017-07-27] MEDS: Valproate Sodium INJ 500 MG in D5W 55 ML IVPB SCH ×2 (04:29→17:46)
[2017-07-27] MEDS: NovoLOG Insulin Flexpen SUBQ SCH ×4 (06:30→20:56)
[2017-07-27 07:59] LABS: ANION GAP 5 mmol/L (5-15); CALCIUM 8.8 MG/DL (8.5-10.1); CARBON DIOXIDE 30 MMOL/L (21-32); CHLORIDE 108 MMOL/L (98-107); CREATININE 0.7 MG/DL (0.55-1.30); GLOMERULAR FILTRATION RATE > 60 mL/min (>60); POTASSIUM 3.3 MMOL/L (3.5-5.1); SODIUM 143 MMOL/L (136-145)
[2017-07-27 08:00] VITALS: BP 93/61
[2017-07-27 08:00] LABS: MEAN CORPUSCULAR HGB CONC 34.6 G/DL (32.0-36.0); MEAN CORPUSCULAR VOLUME 96 FL (80-99); PLATELET COUNT 148 K/UL (150-450); RED BLOOD COUNT 4.16 M/UL (4.70-6.10); RED CELL DISTRIBUTION WIDTH 12.3 % (11.6-14.8); WHITE BLOOD COUNT 3.4 K/UL (4.8-10.8)
[2017-07-27] MEDS: Heparin 5000 units/ml inj SUBQ SCH ×2 (09:00→20:56)
[2017-07-27 09:32] LABS: BAND NEUTROPHILS % (MANUAL) 0 % (0-8); BASOPHILS % (MANUAL) 0 % (0-2); EOSINOPHILS % (MANUAL) 5 % (0-3); LYMPHOCYTES % (MANUAL) 44 % (20-45); NEUTROPHILS % (MANUAL) 45 % (45-75); PLATELET ESTIMATE ADEQUATE; PLATELET MORPHOLOGY NORMAL; TOTAL CELLS COUNTED 100
--- NOTE | 2017-07-27 10:15 | Consultation ---
DATE OF CONSULTATION: 07/24/2017 NEUROLOGICAL CONSULTATION REQUESTING PHYSICIAN: Ever Mendosa D.O. HISTORY OF PRESENT ILLNESS: This is a 51-year-old man, seen in neurological consultation to evaluate failure to thrive, generalized spasticity with a history of cerebral palsy and seizure disorder. The patient was admitted from nursing facility presenting with dysphagia and failure to thrive. His initial vital signs included hypotension with blood pressure 95/67 and temperature 97.4 degrees. Blood work was obtained revealing CBC study with hemoglobin 13.9 and WBC 4.1. Coagulation panel, INR 1.2 and PT 12.2. Urinalysis unremarkable. Chemistry panel was unremarkable. Glucose 118. Normal lipid panel and liver function. Imaging studies included chest x-ray, which revealed no acute abnormalities. There was a radiopaque catheter or wire projected in midline over the neck and upper mediastinum, and another associated catheter wire projected over the heart and upper abdomen. There is no evidence of indwelling NG tube or catheter. CT scan of the chest, abdomen, and pelvis obtained. This revealed again a radiopaque foreign body with wiring from spinal stimulator and the in the left lower chest wall, a right lower pole thyroid mass 2 cm, and fecal impaction. Following admission until present, there were no further changes. No paroxysmal events. The patient was unable to provide with sufficient history. According to medical records provided by the nursing facility, the patient has a history of cerebral palsy, but also hypertension, history of diabetes, and seizure disorder. The patient added that he has chronic low back pain. The patient's treatment prior to admission included Depakote 125 mg b.i.d., magnesium hydroxide, metformin, and Dulcolax. SOCIAL HISTORY: Resident of nursing facility. FAMILY HISTORY: Unavailable. REVIEW OF SYMPTOMS: Unable to obtain due the patient's status. PHYSICAL EXAMINATION: GENERAL: A well-developed, somewhat cachectic, pale man, who appears to be approximately stated age. VITAL SIGNS: Now stable. Blood pressure 114/69 and temperature 97.3 degrees. HEENT: Head: Normocephalic. There are no deformities. NECK: Somewhat rigid, but no deformities. EXTREMITIES: Upper and lower extremities, there was some thinness of musculature predominantly in lower extremities. Peripheral pulses 1+ symmetric. MENTAL STATUS: The patient is alert and oriented to his name, but gave wrong age, unable to give place, time, or provide with medical history. He is able to follow few simple commands and maintains eye contact. CRANIAL NERVE II: Pupils, both responding to light and accommodation. Extraocular movement full range. CRANIAL NERVE V: Normal corneal responses. CRANIAL NERVE VII: No gross asymmetry. CRANIAL NERVE VIII: Normal hearing. CRANIAL NERVES IX THROUGH XII: Tongue is in midline. Symmetric palate elevation. MOTOR EXAMINATION: Spasticity diffusely, predominantly on the right and predominantly both lower extremities, able to lift left arm against the gravity and partially right upper extremity. Able to wiggle toes, but not lifting legs. Deep tendon reflexes 4+ bilaterally. Plantar responses are mute. SENSORY EXAMINATION: Withdrawing to pin stimulation in all limbs. There is involuntary movement with what seems dyskinesia in neck and shoulders. The patient is bedridden. IMPRESSION: 1. History of severe cerebral palsy with spastic quadriparesis, significant mental retardation. 2. History of seizure disorder? 3. Chronic low back pain, probably required a spinal stimulator, not functioning at this time. 4. Failure to thrive, dysphagia. 5. History of aspiration pneumonia. 6. History of diabetes type 2. 7. History of hypertension. DISCUSSION: 1. This limited information available, but based on current examination, he has obviously a long-term cognitive deficiency, spastic quadriparesis. 2. The patient is on a small dose of Depakote, which is unlikely given for seizure activities, more so for the behavioral abnormalities. 3. We will observe for any paroxysmal events, at which point further adjustment of anticonvulsants will be necessary. 4. We will obtain baseline CT of the brain and electroencephalogram. The patient will continue with GI workup. Thank you for allowing me to see this interesting patient in neurological consultation. Sheldon Lopez M.D. DR: Néstor JOB#: [id number] CC:
--- NOTE | 2017-07-27 10:25 | GI Progress Note ---
Assessment/Plan Problems: (1) Anemia ICD Codes: D64.9 - Anemia, unspecified SNOMED: 239447458 (2) Failure to thrive SNOMED: 99130138 (3) Dysphagia ICD Codes: R13.10 - Dysphagia, unspecified SNOMED: 95803948, 683547777 (4) Malnutrition ICD Codes: E46 - Unspecified protein-calorie malnutrition SNOMED: 7701313 (5) Fecal impaction ICD Codes: K56.41 - Fecal impaction SNOMED: 58375925 Status: unchanged Status Narrative Discussed with Dr. Tang. Assessment/Plan - Malnutrition - cerebral palsy - possible foreign body on imaging EGD deferred, noted foreign body is wire from a spinal stimulator noted in CT chest. possible PEG, awaiting ST evaluation H2B fleets prn fu labs Subjective Subjective limited Objective Last 24 Hour Vital Signs Date Time Temp Pulse Resp B/P (MAP) Pulse Ox O2 Delivery O2 Flow Rate FiO2 07/27/17 08:00 95.0 57 16 93/61 100 07/27/17 04:00 95.6 54 20 112/60 91 Room Air 07/27/17 00:00 98.4 55 20 109/53 94 Room Air 07/26/17 20:00 98.2 59 21 96/58 98 Room Air 07/26/17 16:08 97.8 61 20 118/57 97 Room Air 07/26/17 11:24 97.6 67 21 115/63 98 Room Air Laboratory Tests Test 07/27/17 05:25 White Blood Count 3.4 K/UL (4.8-10.8) L Red Blood Count 4.16 M/UL (4.70-6.10) L Hemoglobin 13.7 G/DL (14.2-18.0) L Hematocrit 39.7 % (42.0-52.0) L Mean Corpuscular Volume 96 FL (80-99) Mean Corpuscular Hemoglobin 33.0 PG (27.0-31.0) H Mean Corpuscular Hemoglobin Concent 34.6 G/DL (32.0-36.0) Red Cell Distribution Width 12.3 % (11.6-14.8) Platelet Count 148 K/UL (150-450) L Mean Platelet Volume 9.0 FL (6.5-10.1) Neutrophils (%) (Auto) % (45.0-75.0) Lymphocytes (%) (Auto) % (20.0-45.0) Monocytes (%) (Auto) % (1.0-10.0) Eosinophils (%) (Auto) % (0.0-3.0) Basophils (%) (Auto) % (0.0-2.0) Differential Total Cells Counted 100 Neutrophils % (Manual) 45 % (45-75) Lymphocytes % (Manual) 44 % (20-45) Monocytes % (Manual) 6 % (1-10) Eosinophils % (Manual) 5 % (0-3) H Basophils % (Manual) 0 % (0-2) Band Neutrophils 0 % (0-8) Platelet Estimate Adequate Platelet Morphology Normal Red Blood Cell Morphology Normal Sodium Level 143 MMOL/L (136-145) Potassium Level 3.3 MMOL/L (3.5-5.1) L Chloride Level 108 MMOL/L (98-107) H Carbon Dioxide Level 30 MMOL/L (21-32) Anion Gap 5 mmol/L (5-15) Blood Urea Nitrogen 3 mg/dL (7-18) L Creatinine 0.7 MG/DL (0.55-1.30) Estimat Glomerular Filtration Rate > 60 mL/min (>60) Glucose Level 143 MG/DL (74-106) H Calcium Level 8.8 MG/DL (8.5-10.1) Height (Feet): 5 Height (Inches): 5.00 Weight (Pounds): 250 General Appearance: no apparent distress, alert Cardiovascular: normal rate Respiratory/Chest: normal breath sounds, no respiratory distress Abdominal Exam: normal bowel sounds, non tender, soft Julieta Nieto N.Alberta Jul 27, 2017 10:25
--- NOTE | 2017-07-27 10:31 | Consultation ---
DATE OF CONSULTATION: HEMATOLOGY/ONCOLOGY CONSULTATION ADMITTING PHYSICIAN: Ever Mendosa D.O. REQUESTING PHYSICIAN: Ever Mendosa D.O. CURRENT COMPLAINT/HISTORY OF PRESENT ILLNESS: Dear Dr. Ever Mendosa, Today, I had the opportunity to see one of your patients, who as you are aware is a 51-year-old delightful gentleman. His past medical history is remarkable for cerebral palsy, diabetes mellitus, and hypertension. The patient is from [facility]. During evaluation in [facility], it was found that the patient developed significant thrombocytopenia as well as anemia and leukopenia. My service was called to handle the issue of blood dyscrasia. PAST MEDICAL HISTORY: 1. Cerebral palsy. 2. Diabetes mellitus. 3. Hypertension. MEDICATIONS: 1. MiraLAX. 2. Ambien. 3. Heparin. 4. Tylenol. 5. Morphine. 6. Zofran. 7. Ativan. 8. Mylanta. ALLERGIES: Penicillin. SOCIAL HISTORY: No history of alcohol abuse. No history of smoking. No history of illicit drug use. FAMILY HISTORY: Noncontributory. REVIEW OF SYSTEMS: Unobtainable secondary to the patient's confusion. PHYSICAL EXAMINATION: VITAL SIGNS: T-max 97 degrees, respiratory rate is 20, heart rate 80, and blood pressure 130/80. LABORATORY AND DIAGNOSTIC DATA: WBC 3.6, hemoglobin 13.2, hematocrit 39.1, and platelets 138,000. Coagulation, INR 1.2. Chemistry, creatinine 0.6. IMPRESSION: 1. Thrombocytopenia, multifactorial. 2. Anemia of chronic disease. 3. Leukopenia, multifactorial. 4. Dysphagia. 5. Possible foreign body, . 6. Dehydration. 7. Malnutrition. 8. Possible malignancy. 9. Diabetes mellitus. 10. Dementia. 11. Seizure disorder. 12. Cerebral palsy. 13. Thyroid mass. RECOMMENDATION: 1. Watch count. 2. Watch coagulopathy. 3. Platelets transfusion p.r.n. basis. 4. PRBC transfusion p.r.n. basis. 5. Check heparin-induced platelet antibody. 6. Pharmacy to review medication. 7. Continue current treatment. 8. Discussed with the staff. 9. Respiratory treatment. 10. Close followup. Alexis Bullard MD DR: XUAN JOB#: [id number] CC:
--- NOTE | 2017-07-27 10:31 | Consultation ---
DATE OF CONSULTATION: NOTE: POOR AUDIO QUALITY HISTORY OF PRESENT ILLNESS: This is a 51-year-old male patient. the patient is confused and disorganized. . ALLERGIES: Penicillin. . SUBSTANCE ABUSE HISTORY: Denies drug or alcohol use. SOCIAL HISTORY: The patient lives financially supported by [employer] and Medicare. MENTAL STATUS EXAMINATION: This is a 51-year-old male with psychomotor retardation. Mood is depressed. Affect guarded and restricted. Thought process is disorganized and illogical. Denies any current suicidal or homicidal thoughts. Insight and judgment is poor. DIAGNOSIS: Bipolar II. PLAN: add Remeron 15 mg nightly, . Kenny Anderson M.D. DR: Umair JOB#: [id number] CC:
--- NOTE | 2017-07-27 10:45 | Consultation ---
DATE OF CONSULTATION: 07/25/2017 LATE ENTRY REPORT FOR 07/25/2017 HEMATOLOGY/ONCOLOGY CONSULTATION ATTENDING PHYSICIAN: Ever Mendosa D.O. CONSULTING PHYSICIAN: Aleixs Bullard M.D. REASON FOR CONSULTATION: Leukopenia, anemia, and thrombocytopenia. CURRENT COMPLAINT/HISTORY OF PRESENT ILLNESS: Dear Dr. Ever Mendosa: Today, I had the opportunity to see one of your patients, who as you are well aware is a 51-year-old gentleman, a resident of a senior care facility. The patient with past medical history remarkable for cerebral palsy, diabetes mellitus, and hypertension. The patient ended up in [facility] with failure to thrive, weakness, dysphagia, . The patient complained of decreased appetite and decreased fluid intake. During evaluation, it was found the patient developed leukopenia and thrombocytopenia. My service was called to handle the issue of blood dyscrasia. PAST MEDICAL HISTORY: 1. Cerebral palsy. 2. Hypertension. 3. Coronary artery disease. 4. Diabetes mellitus. MEDICATIONS: 1. Remeron. 2. MiraLAX. 3. Ambien. 4. Heparin subcutaneous. 5. Pepcid. 6. Dextrose. 7. Insulin. 8. Depakote. 9. Tylenol. 10. Morphine. 11. Zofran. 12. Lorazepam. 13. Ativan. 14. Mylanta. ALLERGIES: NKDA. SOCIAL HISTORY: No history of smoking. No history of alcohol abuse. The patient is a resident from a senior care facility. FAMILY HISTORY: Noncontributory. PHYSICAL EXAMINATION: VITAL SIGNS: T-max 97 degrees. Respiratory rate 20. Heart rate 80. Blood pressure 130/80. HEENT: Head, normocephalic and atraumatic. NECK: Neck is supple. No thyroid enlargement. No lymphadenopathy. LUNGS: Decreased breath sounds bilaterally with few rhonchi in the base. HEART: S1 and S2 regular. ABDOMEN: Soft and benign. No organomegaly present. Bowel sounds present. EXTREMITIES: No cyanosis, clubbing, or edema. LABORATORY AND DIAGNOSTIC DATA: WBC 3.6, hemoglobin 13.2, hematocrit 32.2, and platelets 138,000. IMPRESSION: 1. Pancytopenia, multifactorial. 2. Leukopenia, persistent, multifactorial. 3. Thrombocytopenia, persistent, multifactorial. 4. Anemia of chronic disease. 5. Decreased hemoglobin and hematocrit, rule out gastrointestinal bleed. 6. Coagulopathy, multifactorial. 7. Dysphagia. 8. Cerebral palsy. 9. Malnutrition. 10. Diabetes mellitus. 11. Coronary artery disease. 12. Hypertension. 13. Malnutrition. 14. Failure to thrive. RECOMMENDATIONS: 1. Watch count. 2. Watch coagulopathy. 3. PRBC transfusion on p.r.n. basis. 4. Heparin subcutaneous. 5. Neupogen on p.r.n. basis. 6. Skin care. 7. Nutrition. 8. Pulmonary followup. 9. Gastrointestinal followup. 10. Psychiatry followup. 11. Neurology followup. 12. Continue current treatment. 13. Discussed with staff. Alexis Bullard MD DR: Ronda JOB#: [id number] CC:
[2017-07-27 12:00] VITALS: BP 113/69
--- NOTE | 2017-07-27 12:13 | Neurology Progress Note ---
Interim History Interim History ROS Limited/Unobtainable: Yes Complaints: feel ok Events: stable , dysphagia Objective Physical Exam Last Vital Signs Date Time Temp Pulse Resp B/P (MAP) Pulse Ox O2 Delivery O2 Flow Rate FiO2 07/27/17 08:00 95.0 57 16 93/61 100 07/27/17 04:00 Room Air 07/24/17 20:00 3.0 Laboratory Tests Test 07/27/17 05:25 White Blood Count 3.4 K/UL (4.8-10.8) L Red Blood Count 4.16 M/UL (4.70-6.10) L Hemoglobin 13.7 G/DL (14.2-18.0) L Hematocrit 39.7 % (42.0-52.0) L Mean Corpuscular Volume 96 FL (80-99) Mean Corpuscular Hemoglobin 33.0 PG (27.0-31.0) H Mean Corpuscular Hemoglobin Concent 34.6 G/DL (32.0-36.0) Red Cell Distribution Width 12.3 % (11.6-14.8) Platelet Count 148 K/UL (150-450) L Mean Platelet Volume 9.0 FL (6.5-10.1) Neutrophils (%) (Auto) % (45.0-75.0) Lymphocytes (%) (Auto) % (20.0-45.0) Monocytes (%) (Auto) % (1.0-10.0) Eosinophils (%) (Auto) % (0.0-3.0) Basophils (%) (Auto) % (0.0-2.0) Differential Total Cells Counted 100 Neutrophils % (Manual) 45 % (45-75) Lymphocytes % (Manual) 44 % (20-45) Monocytes % (Manual) 6 % (1-10) Eosinophils % (Manual) 5 % (0-3) H Basophils % (Manual) 0 % (0-2) Band Neutrophils 0 % (0-8) Platelet Estimate Adequate Platelet Morphology Normal Red Blood Cell Morphology Normal Sodium Level 143 MMOL/L (136-145) Potassium Level 3.3 MMOL/L (3.5-5.1) L Chloride Level 108 MMOL/L (98-107) H Carbon Dioxide Level 30 MMOL/L (21-32) Anion Gap 5 mmol/L (5-15) Blood Urea Nitrogen 3 mg/dL (7-18) L Creatinine 0.7 MG/DL (0.55-1.30) Estimat Glomerular Filtration Rate > 60 mL/min (>60) Glucose Level 143 MG/DL (74-106) H Calcium Level 8.8 MG/DL (8.5-10.1) General: well developed, no acute distress, other - cachectic, neck dyskinesia Head: atraumatic, other - L irene hole Neck: other - rigidity Neurologic Exam Mental Status: awake, alert, other - very confused ox1 dysarthria Speech: other - limited output Language: other - word finding difficulty Cranial Nerve II: no papilledema Cranial Nerves III, IV, : pupils Cranial Nerve V: normal facial sensations Cranial Nerve VII: other - L droop Cranial Nerve VIII: no nystagmus Cranial Nerve IX: other - poor gag Cranial Nerve X: other Cranial Nerve XI: trapezii function normal Cranial Nerve XII: no tongue atrophy/fasciculations Motor System: other - diffise rigidity L>R Sensory: normal pinprick Coordination: other Deep Tendon Reflexes: 3+ bicep (L), 3+ bicep (R), 3+ tricep (L), 3+ tricep (R) , 3+ brachioradialis (L), 3+ brachioradialis (R), 3+ knee (L), 3+ knee (R), 3+ ankle (L), 3+ ankle (R) Reflexes: mute plantar (L), mute plantar (R) Stance: other Gait: other Impression/Recommendations Problems: (1) r/o progressive neurodegenerative disease, with quadriparesis, cognitive loss, dysphagia. (2) s/p L frontal lobe lesion/irene hole. (3) h/o seizure disorder (4) Failure to thrive (5) Dysphagia Status: unchanged Recommendations ## [id number] depacote 500mg bid check levels YURI Lozoya Jul 27, 2017 12:13
--- NOTE | 2017-07-27 13:19 | General Progress Note ---
Assessment/Plan Problem List: (1) Cerebral palsy ICD Codes: G80.9 - Cerebral palsy, unspecified SNOMED: 739276954 (2) UTI (urinary tract infection) ICD Codes: N39.0 - Urinary tract infection, site not specified SNOMED: 02767035 (3) Malnutrition ICD Codes: E46 - Unspecified protein-calorie malnutrition SNOMED: 8269145 (4) Anemia ICD Codes: D64.9 - Anemia, unspecified SNOMED: 945955205 (5) Dysphagia ICD Codes: R13.10 - Dysphagia, unspecified SNOMED: 83065403, 688781058 (6) Foreign body SNOMED: 740533146 (7) Failure to thrive SNOMED: 58837162 Status: unchanged Assessment/Plan ot pt diet abx cbc bmp am heme eval pending peg Subjective Constitutional: Reports: weakness Allergies: Coded Allergies: PENICILLINS (Verified Allergy, Unknown, 07/23/17) All Systems: reviewed and negative except above Subjective sl confused Objective Last 24 Hour Vital Signs Date Time Temp Pulse Resp B/P (MAP) Pulse Ox O2 Delivery O2 Flow Rate FiO2 07/27/17 08:00 95.0 57 16 93/61 100 07/27/17 04:00 95.6 54 20 112/60 91 Room Air 07/27/17 00:00 98.4 55 20 109/53 94 Room Air 07/26/17 20:00 98.2 59 21 96/58 98 Room Air 07/26/17 16:08 97.8 61 20 118/57 97 Room Air Intake and Output 07/27/17 07/28/17 19:00 07:00 Intake Total 375 ml Balance 375 ml IV Total 375 ml Laboratory Tests 07/27/17 05:25: White Blood Count 3.4L, Red Blood Count 4.16L, Hemoglobin 13.7L, Hematocrit 39.7L, Mean Corpuscular Volume 96, Mean Corpuscular Hemoglobin 33.0H, Mean Corpuscular Hemoglobin Concent 34.6, Red Cell Distribution Width 12.3, Platelet Count 148L, Mean Platelet Volume 9.0, Neutrophils (%) (Auto) , Lymphocytes (%) ( Auto) , Monocytes (%) (Auto) , Eosinophils (%) (Auto) , Basophils (%) (Auto) , Differential Total Cells Counted 100, Neutrophils % (Manual) 45, Lymphocytes % ( Manual) 44, Monocytes % (Manual) 6, Eosinophils % (Manual) 5H, Basophils % ( Manual) 0, Band Neutrophils 0, Platelet Estimate Adequate, Platelet Morphology Normal, Red Blood Cell Morphology Normal, Sodium Level 143, Potassium Level 3.3L , Chloride Level 108H, Carbon Dioxide Level 30, Anion Gap 5, Blood Urea Nitrogen 3L, Creatinine 0.7, Estimat Glomerular Filtration Rate > 60, Glucose Level 143H, Calcium Level 8.8 Height (Feet): 5 Height (Inches): 5.00 Weight (Pounds): 250 General Appearance: lethargic EENT: normal ENT inspection Neck: normal alignment Cardiovascular: normal peripheral pulses, normal rate, regular rhythm Respiratory/Chest: chest wall non-tender, lungs clear, normal breath sounds Abdomen: normal bowel sounds, non tender, soft Extremities: normal inspection Edema: no edema noted Arm (L), no edema noted Arm (R), no edema noted Leg (L), no edema noted Leg (R), no edema noted Pedal (L), no edema noted Pedal (R), no edema noted Generalized Neurologic: responsive, motor weakness Skin: normal pigmentation, warm/dry IRLANDA URIAS Jul 27, 2017 13:19
--- NOTE | 2017-07-27 13:44 | Pulmonology Progress Note ---
Assessment/Plan Problems: (1) At high risk for aspiration (2) Spastic quadriparesis (3) Malnutrition (4) Cerebral palsy (5) Failure to thrive Assessment/Plan PEG by GI swallow study noted symptomatic treatment check electrolytes all notes and meds reviewed. Subjective ROS Limited/Unobtainable: No Constitutional: Reports: no symptoms HEENT: Repors: no symptoms Respiratory: Reports: no symptoms Allergies: Coded Allergies: PENICILLINS (Verified Allergy, Unknown, 07/23/17) Objective Last 24 Hour Vital Signs Date Time Temp Pulse Resp B/P (MAP) Pulse Ox O2 Delivery O2 Flow Rate FiO2 07/27/17 08:00 95.0 57 16 93/61 100 07/27/17 04:00 95.6 54 20 112/60 91 Room Air 07/27/17 00:00 98.4 55 20 109/53 94 Room Air 07/26/17 20:00 98.2 59 21 96/58 98 Room Air 07/26/17 16:08 97.8 61 20 118/57 97 Room Air Intake and Output 07/27/17 07/28/17 19:00 07:00 Intake Total 375 ml Balance 375 ml IV Total 375 ml General Appearance: WD/WN HEENT: normocephalic, atraumatic Cardiovascular: normal peripheral pulses, normal rate Abdomen: normal bowel sounds, no organomegaly Genitourinary: normal external genitalia Extremities: no clubbing Skin: no rash Laboratory Tests 07/27/17 05:25: White Blood Count 3.4L, Red Blood Count 4.16L, Hemoglobin 13.7L, Hematocrit 39.7L, Mean Corpuscular Volume 96, Mean Corpuscular Hemoglobin 33.0H, Mean Corpuscular Hemoglobin Concent 34.6, Red Cell Distribution Width 12.3, Platelet Count 148L, Mean Platelet Volume 9.0, Neutrophils (%) (Auto) , Lymphocytes (%) ( Auto) , Monocytes (%) (Auto) , Eosinophils (%) (Auto) , Basophils (%) (Auto) , Differential Total Cells Counted 100, Neutrophils % (Manual) 45, Lymphocytes % ( Manual) 44, Monocytes % (Manual) 6, Eosinophils % (Manual) 5H, Basophils % ( Manual) 0, Band Neutrophils 0, Platelet Estimate Adequate, Platelet Morphology Normal, Red Blood Cell Morphology Normal, Sodium Level 143, Potassium Level 3.3L , Chloride Level 108H, Carbon Dioxide Level 30, Anion Gap 5, Blood Urea Nitrogen 3L, Creatinine 0.7, Estimat Glomerular Filtration Rate > 60, Glucose Level 143H, Calcium Level 8.8 Current Medications Medications (Trade) Dose Ordered Sig/Rachid Route PRN Reason Start Time Stop Time Status Last Admin Dose Admin Acetaminophen (Tylenol) 650 mg Q4H PRN ORAL T>100.5 F 07/23/17 13:15 08/22/17 13:14 Al Hydroxide/Mg Hydroxide (Mylanta II) 30 ml Q6H PRN ORAL dyspepsia 07/23/17 13:15 08/22/17 13:14 Dextrose (Dextrose 50%) STAT PRN IV Hypoglycemia 07/23/17 13:15 08/22/17 13:14 Dextrose/Sodium Chloride 1,000 ml @ 75 mls/hr [id number] IV 07/23/17 18:30 08/22/17 18:29 07/27/17 03:00 Famotidine (Pepcid I.v.) 20 mg Q12HR IVP 07/23/17 21:00 08/22/17 20:59 07/27/17 09:01 Heparin Sodium (Porcine) (Heparin 5000 units/ml) 5,000 units EVERY 12 HOURS SUBQ 07/23/17 21:00 08/22/17 20:59 07/26/17 20:10 Insulin Aspart (NovoLOG) BEFORE MEALS AND HS SUBQ 07/23/17 16:30 08/22/17 16:29 Lorazepam (Ativan 2mg/ml 1ml) 0.5 mg Q4H PRN IV For Anxiety 07/23/17 13:15 07/30/17 13:14 07/26/17 11:14 Mirtazapine (Remeron) 15 mg BEDTIME ORAL 07/25/17 21:00 08/24/17 20:59 Morphine Sulfate (Morphine Sulfate) 1 mg Q4H PRN IVP PAIN 4-10 07/23/17 13:15 07/30/17 13:14 Ondansetron HCl (Zofran) 4 mg Q6H PRN IVP Nausea & Vomiting 07/23/17 13:15 08/22/17 13:14 Polyethylene Glycol (Miralax) 17 gm HSPRN PRN ORAL Constipation 07/23/17 21:00 08/22/17 20:59 Valproate Sodium 500 mg/Dextrose 60 ml @ 60 mls/hr Q12HR@0500,1700 IVPB 07/26/17 17:00 08/25/17 16:59 07/27/17 04:29 Zolpidem Tartrate (Ambien) 5 mg HSPRN PRN ORAL Insomnia 07/23/17 21:00 07/30/17 20:59 ALEKSANDER LICONA Jul 27, 2017 13:44
[2017-07-27] MEDS ORDERED: D5 1/2NS 1000ml IV ONE (14:48)
--- NOTE | 2017-07-27 19:00 | Electroencephalogram ---
DATE OF PROCEDURE: 07/24/2017 PROCEDURE PERFORMED: Electroencephalogram. READING PHYSICIAN: Sheldon Lopez M.D. REQUESTING PHYSICIAN: Ever Mendosa D.O. HISTORY: This is a 51-year-old man with cerebral palsy, dysphagia, old ventriculostomy, left frontal encephalomalacia, now presenting with changes in mental status. EEG was requested to assess possible ongoing seizure activity. The patient is maintained on Depakote and morphine p.r.n. TECHNIQUE: On most of the recording, the patient was awake with behavioral abnormalities. He was pulling out electrodes twice. 01:04 be touched to his head. Test was shortened due to the patient's combativeness, restlessness, and poor cooperation. Most wakeful portions of recording, background activity consists of low to medium voltage, mixture of 7 to 8 cycles per second bilaterally with often overriding by faster low voltage beta activities. There was no significant asymmetry noted. Photic stimulation and hyperventilation were obtained revealing no significant changes in background. EMG artifacts were noted. No paroxysmal epileptiform activities detected. IMPRESSION: Mildly abnormal EEG in presence of diffuse slowing. COMMENT: Above abnormality is a nonspecific finding, may reflect underlying structural lesion, but also toxic or metabolic derangement. Absence of paroxysmal event on a single recording does not rule out seizure disorder. Sheldon Lopez M.D. DR: JUVENAL JOB#: [id number] CC:
[2017-07-27 20:00] VITALS: BP 119/78
--- NOTE | 2017-07-27 22:18 | Infectious Diseases Prog Note ---
Assessment/Plan Problems: (1) Dysphagia Assessment & Plan: Etiology? Doubt cutaneous Candidiasis. Being considered for PEG. (2) Failure to thrive (3) Cerebral palsy (4) Bacteriuria Assessment & Plan: Asymptomatic. Hold off on antibiotics. Subjective Allergies: Coded Allergies: PENICILLINS (Verified Allergy, Unknown, 07/23/17) Objective Vital Signs Last 24 Hour Vital Signs Date Time Temp Pulse Resp B/P (MAP) Pulse Ox O2 Delivery O2 Flow Rate FiO2 07/27/17 20:00 97.5 107 18 119/78 97 Room Air 07/27/17 12:00 96.1 61 17 113/69 99 07/27/17 08:00 95.0 57 16 93/61 100 07/27/17 04:00 95.6 54 20 112/60 91 Room Air 07/27/17 00:00 98.4 55 20 109/53 94 Room Air Height (Feet): 5 Height (Inches): 5.00 Weight (Pounds): 250 Laboratory Tests Test 07/27/17 05:25 White Blood Count 3.4 K/UL (4.8-10.8) L Red Blood Count 4.16 M/UL (4.70-6.10) L Hemoglobin 13.7 G/DL (14.2-18.0) L Hematocrit 39.7 % (42.0-52.0) L Mean Corpuscular Volume 96 FL (80-99) Mean Corpuscular Hemoglobin 33.0 PG (27.0-31.0) H Mean Corpuscular Hemoglobin Concent 34.6 G/DL (32.0-36.0) Red Cell Distribution Width 12.3 % (11.6-14.8) Platelet Count 148 K/UL (150-450) L Mean Platelet Volume 9.0 FL (6.5-10.1) Neutrophils (%) (Auto) % (45.0-75.0) Lymphocytes (%) (Auto) % (20.0-45.0) Monocytes (%) (Auto) % (1.0-10.0) Eosinophils (%) (Auto) % (0.0-3.0) Basophils (%) (Auto) % (0.0-2.0) Differential Total Cells Counted 100 Neutrophils % (Manual) 45 % (45-75) Lymphocytes % (Manual) 44 % (20-45) Monocytes % (Manual) 6 % (1-10) Eosinophils % (Manual) 5 % (0-3) H Basophils % (Manual) 0 % (0-2) Band Neutrophils 0 % (0-8) Platelet Estimate Adequate Platelet Morphology Normal Red Blood Cell Morphology Normal Sodium Level 143 MMOL/L (136-145) Potassium Level 3.3 MMOL/L (3.5-5.1) L Chloride Level 108 MMOL/L (98-107) H Carbon Dioxide Level 30 MMOL/L (21-32) Anion Gap 5 mmol/L (5-15) Blood Urea Nitrogen 3 mg/dL (7-18) L Creatinine 0.7 MG/DL (0.55-1.30) Estimat Glomerular Filtration Rate > 60 mL/min (>60) Glucose Level 143 MG/DL (74-106) H Calcium Level 8.8 MG/DL (8.5-10.1) Current Medications Medications (Trade) Dose Ordered Sig/Rachid Route PRN Reason Start Time Stop Time Status Last Admin Dose Admin Acetaminophen (Tylenol) 650 mg Q4H PRN ORAL T>100.5 F 07/23/17 13:15 08/22/17 13:14 Al Hydroxide/Mg Hydroxide (Mylanta II) 30 ml Q6H PRN ORAL dyspepsia 07/23/17 13:15 08/22/17 13:14 Ciprofloxacin 200 ml @ 200 mls/hr ONCE ONCE IV 07/28/17 08:00 07/28/17 08:59 Dextrose (Dextrose 50%) STAT PRN IV Hypoglycemia 07/23/17 13:15 08/22/17 13:14 Dextrose/Sodium Chloride 1,000 ml @ 75 mls/hr [id number] IV 07/23/17 18:30 08/22/17 18:29 07/27/17 15:44 Famotidine (Pepcid I.v.) 20 mg Q12HR IVP 07/23/17 21:00 08/22/17 20:59 07/27/17 20:55 Heparin Sodium (Porcine) (Heparin 5000 units/ml) 5,000 units EVERY 12 HOURS SUBQ 07/23/17 21:00 08/22/17 20:59 07/26/17 20:10 Insulin Aspart (NovoLOG) BEFORE MEALS AND HS SUBQ 07/23/17 16:30 08/22/17 16:29 Lorazepam (Ativan 2mg/ml 1ml) 0.5 mg Q4H PRN IV For Anxiety 07/23/17 13:15 07/30/17 13:14 07/26/17 11:14 Mirtazapine (Remeron) 15 mg BEDTIME ORAL 07/25/17 21:00 08/24/17 20:59 Morphine Sulfate (Morphine Sulfate) 1 mg Q4H PRN IVP PAIN 4-10 07/23/17 13:15 07/30/17 13:14 Ondansetron HCl (Zofran) 4 mg Q6H PRN IVP Nausea & Vomiting 07/23/17 13:15 08/22/17 13:14 Polyethylene Glycol (Miralax) 17 gm HSPRN PRN ORAL Constipation 07/23/17 21:00 08/22/17 20:59 Valproate Sodium 500 mg/Dextrose 60 ml @ 60 mls/hr Q12HR@0500,1700 IVPB 07/26/17 17:00 08/25/17 16:59 07/27/17 17:46 Zolpidem Tartrate (Ambien) 5 mg HSPRN PRN ORAL Insomnia 07/23/17 21:00 07/30/17 20:59 KADI GARCIA Jul 27, 2017 22:18
[2017-07-28] VITALS (11 sets, daily range): BP systolic 87–135; BP diastolic 50–69
[2017-07-28] MEDS: D5 1/2NS 1,000 ML IV SCH ×2 (05:19→18:30)
[2017-07-28] MEDS: NovoLOG Insulin Flexpen SUBQ SCH ×4 (06:11→19:18)
--- NOTE | 2017-07-28 06:22 | Anethesia Preoperative Eval ---
Anesthesia Pre-op PMH/ROS General Date of Evaluation: Jul 28, 2017 Time of Evaluation: 06:19 Anesthesiologist: edd ASA Score: ASA 3 Mallampati Score Class I : Soft palate, uvula, fauces, pillars visible Class II: Soft palate, uvula, fauces visible Class III: Soft palate, base of uvula visible Class IV: Only hard plate visible Mallampati Classification: Class II Surgeon: fabienne Diagnosis: dysphagia Surgical Procedure: egd/peg Anesthesia History: none Social History: current smoker Allergies: Coded Allergies: PENICILLINS (Verified Allergy, Unknown, 07/23/17) Medications: see eMAR Past Medical History Cardiovascular: Reports: HTN Gastrointestinal/Genitourinary: Reports: other - urinary incontinence Neurologic/Psychiatric: Reports: dementia, depression/anxiety, other - cerebral palsy, schizophrenia, seizures Endocrine: Reports: DM HEENT: Reports: cataract (L) Anesthesia Pre-op Phys. Exam Physician Exam Last Vital Signs Date Time Temp Pulse Resp B/P (MAP) Pulse Ox O2 Delivery O2 Flow Rate FiO2 07/28/17 04:00 97.7 50 19 92/50 98 Room Air 07/24/17 20:00 3.0 Constitutional: NAD Neurologic: other - cerebral palsy Cardiovascular: RRR Respiratory: CTA Gastrointestinal: S/NT/ND Airway Exam Mallampati Score: Class II Neck: limited mobility TMD: 2fb ROM: limited Teeth: broken Anesthesia Pre-op A/P Labs Labs Test 07/26/17 05:20 07/27/17 05:25 White Blood Count 3.8 K/UL (4.8-10.8) 3.4 K/UL (4.8-10.8) Red Blood Count 4.66 M/UL (4.70-6.10) 4.16 M/UL (4.70-6.10) Hemoglobin 15.1 G/DL (14.2-18.0) 13.7 G/DL (14.2-18.0) Hematocrit 44.9 % (42.0-52.0) 39.7 % (42.0-52.0) Mean Corpuscular Volume 96 FL (80-99) 96 FL (80-99) Mean Corpuscular Hemoglobin 32.4 PG (27.0-31.0) 33.0 PG (27.0-31.0) Mean Corpuscular Hemoglobin Concent 33.6 G/DL (32.0-36.0) 34.6 G/DL (32.0-36.0) Red Cell Distribution Width 12.2 % (11.6-14.8) 12.3 % (11.6-14.8) Platelet Count 170 K/UL (150-450) 148 K/UL (150-450) Mean Platelet Volume 9.2 FL (6.5-10.1) 9.0 FL (6.5-10.1) Neutrophils (%) (Auto) 47.8 % (45.0-75.0) % (45.0-75.0) Lymphocytes (%) (Auto) 34.9 % (20.0-45.0) % (20.0-45.0) Monocytes (%) (Auto) 10.8 % (1.0-10.0) % (1.0-10.0) Eosinophils (%) (Auto) 5.8 % (0.0-3.0) % (0.0-3.0) Basophils (%) (Auto) 0.7 % (0.0-2.0) % (0.0-2.0) Sodium Level 145 MMOL/L (136-145) 143 MMOL/L (136-145) Potassium Level 3.7 MMOL/L (3.5-5.1) 3.3 MMOL/L (3.5-5.1) Chloride Level 108 MMOL/L (98-107) 108 MMOL/L (98-107) Carbon Dioxide Level 28 MMOL/L (21-32) 30 MMOL/L (21-32) Anion Gap 9 mmol/L (5-15) 5 mmol/L (5-15) Blood Urea Nitrogen 4 mg/dL (7-18) 3 mg/dL (7-18) Creatinine 0.8 MG/DL (0.55-1.30) 0.7 MG/DL (0.55-1.30) Estimat Glomerular Filtration Rate > 60 mL/min (>60) > 60 mL/min (>60) Glucose Level 81 MG/DL (74-106) 143 MG/DL (74-106) Calcium Level 9.2 MG/DL (8.5-10.1) 8.8 MG/DL (8.5-10.1) Magnesium Level 1.7 MG/DL (1.8-2.4) Differential Total Cells Counted 100 Neutrophils % (Manual) 45 % (45-75) Lymphocytes % (Manual) 44 % (20-45) Monocytes % (Manual) 6 % (1-10) Eosinophils % (Manual) 5 % (0-3) Basophils % (Manual) 0 % (0-2) Band Neutrophils 0 % (0-8) Platelet Estimate Adequate Platelet Morphology Normal Red Blood Cell Morphology Normal Risk Assessment & Plan Assessment: asa3 Plan: mac Status Change Before Surgery: No Pre-Antibiotics Drug: CLEMENTINE Weiss Jul 28, 2017 06:22
[2017-07-28] MEDS ORDERED: Propofol 200mg/20ml IV ONE (07:00)
[2017-07-28] MEDS ORDERED: Lidocaine 1% MPF 10mg/ml 5ml ONE (07:00)
[2017-07-28] MEDS ORDERED: D5W 550ml IV ONE (07:00)
--- NOTE | 2017-07-28 07:08 | Pre-Procedure Note/Attestation ---
Pre-Procedure Note/Attestation Complete Prior to Procedure Planned Procedure: not applicable Procedure Narrative: esophagogastroduodenoscopy/peg Indications for Procedure Pre-Operative Diagnosis: dysphagia Attestation I attest that I discussed the nature of the procedure; its benefits; risks and complications; and alternatives (and the risks and benefits of such alternatives ), prior to the procedure, with the patient (or the patient's legal telephone claims representative). I attest that, if there was a reasonable possibility of needing a blood transfusion, the patient (or the patient's legal telephone claims representative) was given the [facility] standardized written summary, pursuant to the Sim Jolene Blood Safety Act ([place] Health and Safety Code # 1645, as amended). I attest that I re-evaluated the patient just prior to the surgery and that there has been no change in the patient's H&P, except as documented below: HALLIE SOL Jul 28, 2017 07:08
--- NOTE | 2017-07-28 07:10 | General Progress Note ---
Assessment/Plan Problem List: (1) At high risk for aspiration ICD Codes: Z91.89 - Other specified personal risk factors, not elsewhere classified SNOMED: 537512562 (2) h/o seizure disorder (3) Fecal impaction ICD Codes: K56.41 - Fecal impaction SNOMED: 68322753 (4) Failure to thrive SNOMED: 18969798 Assessment/Plan plan PEG today Subjective ROS Limited/Unobtainable: No Allergies: Coded Allergies: PENICILLINS (Verified Allergy, Unknown, 07/23/17) Objective Last 24 Hour Vital Signs Date Time Temp Pulse Resp B/P (MAP) Pulse Ox O2 Delivery O2 Flow Rate FiO2 07/28/17 04:00 97.7 50 19 92/50 98 Room Air 07/28/17 00:00 96.8 51 18 88/53 98 Room Air 07/27/17 20:00 97.5 107 18 119/78 97 Room Air 07/27/17 12:00 96.1 61 17 113/69 99 07/27/17 08:00 95.0 57 16 93/61 100 Height (Feet): 5 Height (Inches): 10.00 Weight (Pounds): 155 General Appearance: no apparent distress EENT: normal ENT inspection Neck: supple Cardiovascular: normal rate Respiratory/Chest: lungs clear Abdomen: normal bowel sounds, non tender, soft Extremities: non-tender HALLIE SOL Jul 28, 2017 07:10
[2017-07-28] MEDS ORDERED: DiphenhydrAMINE 50mg/ml Inj IVP PRN (07:15)
[2017-07-28] MEDS ORDERED: Atropine Inj 1mg/10ml Syr IV PRN (07:15)
[2017-07-28] MEDS ORDERED: Midazolam 2mg/2ml Inj IVP PRN (07:15)
[2017-07-28] MEDS ORDERED: Clindamycin 600mg 50 ML IV ONE (07:15)
[2017-07-28] MEDS ORDERED: fentaNYL 100 mcg/2 mL IV PRN (07:15)
--- NOTE | 2017-07-28 07:28 | Endoscopy Procedure Note ---
Endoscopy Procedure Note Indication for Procedure: dysphagia Procedures Performed: EGD, PEG Operative Findings/Diagnosis: gastric polyp Specimen: yes Pt Tolerated Procedure Well: Yes Estimated Blood Loss: none Anesthesiologist: ko Anesthesia: MAC Implant(s) used?: No 50 yrs or older w/o bx or poly: Not Applicable 10yrs. F/U not recommended: Not Applicable HALLIE SOL Jul 28, 2017 07:28
--- NOTE | 2017-07-28 07:59 | Immediate Post-Op Evaluation ---
Immediate Post-Op Evalulation Immediate Post-Op Evalulation Procedure: egd/peg Date of Evaluation: Jul 28, 2017 Time of Evaluation: 07:48 IV Fluids: d5 350ml Blood Products: none Estimated Blood Loss: negligible Blood Pressure Systolic: 114 Blood Pressure Diastolic: 73 Pulse Rate: 72 Respiratory Rate: 18 O2 Sat by Pulse Oximetry: 99 Temperature (Fahrenheit): 97.9 Pain Score (1-10): 0 Nausea: No Vomiting: No Complications none Patient Status: awake, reacts, patent Hydration Status: adequate Drug: clindamycin 600mg Given Within 1 Hr of Incision: Yes CLEMENTINE JOSEPH Jul 28, 2017 07:59
--- NOTE | 2017-07-28 08:01 | 48 Hour Post Anesthesia Eval ---
Post Anesthesia Evaluation Procedure: egd/peg Date of Evaluation: Jul 28, 2017 Time of Evaluation: 07:59 Blood Pressure Systolic: 111 0: 78 Pulse Rate: 72 Respiratory Rate: 18 Temperature (Fahrenheit): 97.9 O2 Sat by Pulse Oximetry: 99 Airway: patent Nausea: No Vomiting: No Pain Intensity: 0 Hydration Status: adequate Cardiopulmonary Status: stable Mental Status/LOC: patient returned to baseline Post-Anesthesia Complications: none Follow-up care needed: N/A CLEMENTINE JOSEPH Jul 28, 2017 08:01
[2017-07-28] MEDS: Heparin 5000 units/ml inj SUBQ SCH ×2 (08:54→21:00)
--- NOTE | 2017-07-28 09:05 | General Progress Note ---
Assessment/Plan Assessment/Plan IMPRESSION/PLAN: 1. Pancytopenia. Continue to monitor. Counts currently not critical. 2. Leukopenia, persistent, multifactorial. 3. Thrombocytopenia, persistent, multifactorial. 4. Anemia of chronic disease. watch counts 5. Coagulopathy, multifactorial. 6. Dysphagia. Subjective Date patient seen: Jul 27, 2017 Constitutional: Reports: no symptoms HEENT: Reports: no symptoms Cardiovascular: Reports: no symptoms Respiratory: Reports: no symptoms Gastrointestinal/Abdominal: Reports: no symptoms Genitourinary: Reports: no symptoms Neurologic/Psychiatric: Reports: no symptoms Endocrine: Reports: no symptoms Hematologic/Lymphatic: Reports: no symptoms Allergies: Coded Allergies: PENICILLINS (Verified Allergy, Unknown, 07/23/17) Objective Last 24 Hour Vital Signs Date Time Temp Pulse Resp B/P (MAP) Pulse Ox O2 Delivery O2 Flow Rate FiO2 07/28/17 08:41 53 87/55 100 Room Air 07/28/17 08:05 97.2 62 20 106/54 98 Room Air 07/28/17 08:01 72 18 99 07/28/17 07:59 72 18 99 07/28/17 07:55 58 19 102/56 100 Room Air 07/28/17 07:45 63 15 102/68 97 Room Air 07/28/17 07:40 64 18 118/63 98 Nasal Cannula 3.0 07/28/17 07:36 97.6 67 14 113/58 98 Nasal Cannula 3.0 07/28/17 04:00 97.7 50 19 92/50 98 Room Air 07/28/17 00:00 96.8 51 18 88/53 98 Room Air 07/27/17 20:00 97.5 107 18 119/78 97 Room Air 07/27/17 12:00 96.1 61 17 113/69 99 Intake and Output 07/28/17 07/29/17 19:00 07:00 Intake Total 450 ml Output Total 500 ml Balance -50 ml IV Total 450 ml Output Urine Total 500 ml Estimated Blood Loss 0 ml Height (Feet): 5 Height (Inches): 10.00 Weight (Pounds): 155 General Appearance: no apparent distress Neck: normal alignment Respiratory/Chest: normal breath sounds Extremities: non-tender Kendall Bullard Jul 28, 2017 09:05
[2017-07-28 09:26] LABS: MEAN CORPUSCULAR HEMOGLOBIN 33.2 PG (27.0-31.0); MEAN CORPUSCULAR HGB CONC 34.5 G/DL (32.0-36.0); MEAN CORPUSCULAR VOLUME 96 FL (80-99); MEAN PLATELET VOLUME 9.2 FL (6.5-10.1); PLATELET COUNT 131 K/UL (150-450); RED BLOOD COUNT 4.42 M/UL (4.70-6.10); RED CELL DISTRIBUTION WIDTH 12.3 % (11.6-14.8); WHITE BLOOD COUNT 3.1 K/UL (4.8-10.8)
--- NOTE | 2017-07-28 09:30 | Progress Note ---
DATE: 07/27/2017 NOTE: POOR AUDIO QUALITY SUBJECTIVE: The patient is a 51-year-old male patient with dysphagia. The patient was seen and assessed at the bedside. He is confused, disorganized with altered mental status. PLAN: Continue treatment medications to prevent any decline in his cognition. Chart was reviewed and discussed with staff. He was seen and assessed at bedside. Kenny Anderson M.D. DR: MARK JOB#: [id number] CC:
[2017-07-28 09:35] LABS: INR 1.3 (0.9-1.1); PROTHROMBIN TIME 13.7 SEC (9.30-11.50)
[2017-07-28 09:40] LABS: ANION GAP 8 mmol/L (5-15); CALCIUM 9.3 MG/DL (8.5-10.1); CARBON DIOXIDE 30 MMOL/L (21-32); CHLORIDE 107 MMOL/L (98-107); CREATININE 0.7 MG/DL (0.55-1.30); GLOMERULAR FILTRATION RATE > 60 mL/min (>60); MAGNESIUM 1.7 MG/DL (1.8-2.4); POTASSIUM 3.6 MMOL/L (3.5-5.1); SODIUM 145 MMOL/L (136-145)
[2017-07-28 09:48] LABS: ALANINE AMINOTRANSFERASE 29 U/L (12-78); ASPARTATE AMINO TRANSFERASE 15 U/L (15-37); BILIRUBIN,DIRECT 0.3 MG/DL (0.0-0.3); TOTAL PROTEIN 6.5 G/DL (6.4-8.2)
[2017-07-28] MEDS ORDERED: Valproate Sodium INJ 500 MG in D5W 55 ML IVPB SCH (10:00)
[2017-07-28 10:28] LABS: BAND NEUTROPHILS % (MANUAL) 0 % (0-8); BASOPHILS % (MANUAL) 2 % (0-2); EOSINOPHILS % (MANUAL) 5 % (0-3); LYMPHOCYTES % (MANUAL) 41 % (20-45); NEUTROPHILS % (MANUAL) 45 % (45-75); PLATELET ESTIMATE DECREASED; TOTAL CELLS COUNTED 100
[2017-07-28 10:29] LABS: PLATELET MORPHOLOGY NORMAL
--- NOTE | 2017-07-28 10:50 | Diagnostic Imaging Report ---
Indication: Thyroid nodules demonstrated on recent CT scan Technique: Grayscale and duplex images of the thyroid Comparison: Rotated chest CT 07/23/2017 Findings: Right thyroid lobe measures 5 cm length x 2.5 cm AP. Left thyroid lobe measures 4.3 cm length x 0.3 cm AP. Both thyroid lobes demonstrate normal echogenicity.Within the lower pole of the right thyroid lobe, there is a complex mixed cystic and solid mass which measures 2.9 x 2.2 cm. Within the interpolar region of the left thyroid lobe, there is a 7 x 4 mm nodule.. Impression: Complex cystic 2.9 cm right lower pole thyroid nodule, corresponding to abnormality described on recent CT scan. Consideration should be given to tissue sampling. Subcentimeter left thyroid nodule. No further evaluation necessary
[2017-07-28] MEDS ORDERED: Norco 5mg/325mg tab ORAL PRN (14:15)
--- NOTE | 2017-07-28 14:27 | General Progress Note ---
Assessment/Plan Problem List: (1) Cerebral palsy ICD Codes: G80.9 - Cerebral palsy, unspecified SNOMED: 484902409 (2) UTI (urinary tract infection) ICD Codes: N39.0 - Urinary tract infection, site not specified SNOMED: 50539592 (3) Malnutrition ICD Codes: E46 - Unspecified protein-calorie malnutrition SNOMED: 8718146 (4) Anemia ICD Codes: D64.9 - Anemia, unspecified SNOMED: 849527025 (5) Dysphagia ICD Codes: R13.10 - Dysphagia, unspecified SNOMED: 36049384, 162320385 (6) Foreign body SNOMED: 548343684 (7) Failure to thrive SNOMED: 34555690 Status: stable, progressing Assessment/Plan ot pt diet abx cbc bmp am heme eval dc plan Subjective Constitutional: Reports: weakness Allergies: Coded Allergies: PENICILLINS (Verified Allergy, Unknown, 07/23/17) All Systems: reviewed and negative except above Subjective sl confused s/p gtube Objective Last 24 Hour Vital Signs Date Time Temp Pulse Resp B/P (MAP) Pulse Ox O2 Delivery O2 Flow Rate FiO2 07/28/17 12:15 97.6 88 20 135/69 97 Room Air 07/28/17 08:41 53 87/55 100 Room Air 07/28/17 08:05 97.2 62 20 106/54 98 Room Air 07/28/17 08:01 72 18 99 07/28/17 07:59 72 18 99 07/28/17 07:55 58 19 102/56 100 Room Air 07/28/17 07:45 63 15 102/68 97 Room Air 07/28/17 07:40 64 18 118/63 98 Nasal Cannula 3.0 07/28/17 07:36 97.6 67 14 113/58 98 Nasal Cannula 3.0 07/28/17 04:00 97.7 50 19 92/50 98 Room Air 07/28/17 00:00 96.8 51 18 88/53 98 Room Air 07/27/17 20:00 97.5 107 18 119/78 97 Room Air Intake and Output 07/28/17 07/29/17 19:00 07:00 Intake Total 450 ml Output Total 500 ml Balance -50 ml IV Total 450 ml Output Urine Total 500 ml Estimated Blood Loss 0 ml Laboratory Tests 07/28/17 08:45: White Blood Count 3.1L, Red Blood Count 4.42L, Hemoglobin 14.7, Hematocrit 42.6 , Mean Corpuscular Volume 96, Mean Corpuscular Hemoglobin 33.2H, Mean Corpuscular Hemoglobin Concent 34.5, Red Cell Distribution Width 12.3, Platelet Count 131L, Mean Platelet Volume 9.2, Neutrophils (%) (Auto) , Lymphocytes (%) ( Auto) , Monocytes (%) (Auto) , Eosinophils (%) (Auto) , Basophils (%) (Auto) , Differential Total Cells Counted 100, Neutrophils % (Manual) 45, Lymphocytes % ( Manual) 41, Monocytes % (Manual) 7, Eosinophils % (Manual) 5H, Basophils % ( Manual) 2, Band Neutrophils 0, Platelet Estimate DecreasedL, Platelet Morphology Normal, Red Blood Cell Morphology Normal, Prothrombin Time 13.7H, Prothromb Time International Ratio 1.3H, Activated Partial Thromboplast Time 31 , Sodium Level 145, Potassium Level 3.6, Chloride Level 107, Carbon Dioxide Level 30, Anion Gap 8, Blood Urea Nitrogen 2L, Creatinine 0.7, Estimat Glomerular Filtration Rate > 60, Glucose Level 101, Calcium Level 9.3, Magnesium Level 1.7L, Total Bilirubin 1.2H, Direct Bilirubin 0.3, Aspartate Amino Transf (AST/SGOT) 15, Alanine Aminotransferase (ALT/SGPT) 29, Alkaline Phosphatase 51, Total Protein 6.5, Albumin 3.3L Height (Feet): 5 Height (Inches): 10.00 Weight (Pounds): 155 General Appearance: lethargic, confused EENT: normal ENT inspection Neck: normal alignment Cardiovascular: normal peripheral pulses, normal rate, regular rhythm Respiratory/Chest: chest wall non-tender, lungs clear, normal breath sounds Abdomen: normal bowel sounds, non tender, soft Extremities: normal inspection Edema: no edema noted Arm (L), no edema noted Arm (R), no edema noted Leg (L), no edema noted Leg (R), no edema noted Pedal (L), no edema noted Pedal (R), no edema noted Generalized Neurologic: motor weakness Skin: normal pigmentation, warm/dry IRLANDA URIAS Jul 28, 2017 14:27
--- NOTE | 2017-07-28 14:58 | Pulmonology Progress Note ---
Assessment/Plan Problems: (1) At high risk for aspiration (2) Spastic quadriparesis (3) Malnutrition (4) Cerebral palsy (5) Failure to thrive Assessment/Plan PEG by GI done, tolerated well swallow study noted symptomatic treatment check electrolytes all notes and meds reviewed. dc when tolerating feeding Subjective ROS Limited/Unobtainable: No Constitutional: Reports: no symptoms HEENT: Repors: no symptoms Respiratory: Reports: no symptoms Allergies: Coded Allergies: PENICILLINS (Verified Allergy, Unknown, 07/23/17) Objective Last 24 Hour Vital Signs Date Time Temp Pulse Resp B/P (MAP) Pulse Ox O2 Delivery O2 Flow Rate FiO2 07/28/17 12:15 97.6 88 20 135/69 97 Room Air 07/28/17 08:41 53 87/55 100 Room Air 07/28/17 08:05 97.2 62 20 106/54 98 Room Air 07/28/17 08:01 72 18 99 07/28/17 07:59 72 18 99 07/28/17 07:55 58 19 102/56 100 Room Air 07/28/17 07:45 63 15 102/68 97 Room Air 07/28/17 07:40 64 18 118/63 98 Nasal Cannula 3.0 07/28/17 07:36 97.6 67 14 113/58 98 Nasal Cannula 3.0 07/28/17 04:00 97.7 50 19 92/50 98 Room Air 07/28/17 00:00 96.8 51 18 88/53 98 Room Air 07/27/17 20:00 97.5 107 18 119/78 97 Room Air Intake and Output 07/28/17 07/29/17 19:00 07:00 Intake Total 450 ml Output Total 500 ml Balance -50 ml IV Total 450 ml Output Urine Total 500 ml Estimated Blood Loss 0 ml General Appearance: WD/WN HEENT: normocephalic, atraumatic Respiratory/Chest: chest wall non-tender, lungs clear Cardiovascular: normal peripheral pulses, normal rate Abdomen: normal bowel sounds, no organomegaly Extremities: no cyanosis, no clubbing Laboratory Tests 07/28/17 08:45: White Blood Count 3.1L, Red Blood Count 4.42L, Hemoglobin 14.7, Hematocrit 42.6 , Mean Corpuscular Volume 96, Mean Corpuscular Hemoglobin 33.2H, Mean Corpuscular Hemoglobin Concent 34.5, Red Cell Distribution Width 12.3, Platelet Count 131L, Mean Platelet Volume 9.2, Neutrophils (%) (Auto) , Lymphocytes (%) ( Auto) , Monocytes (%) (Auto) , Eosinophils (%) (Auto) , Basophils (%) (Auto) , Differential Total Cells Counted 100, Neutrophils % (Manual) 45, Lymphocytes % ( Manual) 41, Monocytes % (Manual) 7, Eosinophils % (Manual) 5H, Basophils % ( Manual) 2, Band Neutrophils 0, Platelet Estimate DecreasedL, Platelet Morphology Normal, Red Blood Cell Morphology Normal, Prothrombin Time 13.7H, Prothromb Time International Ratio 1.3H, Activated Partial Thromboplast Time 31 , Sodium Level 145, Potassium Level 3.6, Chloride Level 107, Carbon Dioxide Level 30, Anion Gap 8, Blood Urea Nitrogen 2L, Creatinine 0.7, Estimat Glomerular Filtration Rate > 60, Glucose Level 101, Calcium Level 9.3, Magnesium Level 1.7L, Total Bilirubin 1.2H, Direct Bilirubin 0.3, Aspartate Amino Transf (AST/SGOT) 15, Alanine Aminotransferase (ALT/SGPT) 29, Alkaline Phosphatase 51, Total Protein 6.5, Albumin 3.3L Current Medications Medications (Trade) Dose Ordered Sig/Rachid Route PRN Reason Start Time Stop Time Status Last Admin Dose Admin Acetaminophen (Tylenol) 650 mg Q4H PRN ORAL T>100.5 F 07/23/17 13:15 08/22/17 13:14 Al Hydroxide/Mg Hydroxide (Mylanta II) 30 ml Q6H PRN ORAL dyspepsia 07/23/17 13:15 08/22/17 13:14 Dextrose (Dextrose 50%) STAT PRN IV Hypoglycemia 07/23/17 13:15 08/22/17 13:14 Dextrose/Sodium Chloride 1,000 ml @ 75 mls/hr [id number] IV 07/23/17 18:30 08/22/17 18:29 07/28/17 05:19 Famotidine (Pepcid I.v.) 20 mg Q12HR IVP 07/23/17 21:00 08/22/17 20:59 07/28/17 10:25 Heparin Sodium (Porcine) (Heparin 5000 units/ml) 5,000 units EVERY 12 HOURS SUBQ 07/23/17 21:00 08/22/17 20:59 07/26/17 20:10 Insulin Aspart (NovoLOG) BEFORE MEALS AND HS SUBQ 07/23/17 16:30 08/22/17 16:29 Lorazepam (Ativan 2mg/ml 1ml) 0.5 mg Q4H PRN IV For Anxiety 07/23/17 13:15 07/30/17 13:14 07/26/17 11:14 Magnesium Sulfate 100 ml @ 100 mls/hr ONCE ONCE IVPB 07/28/17 14:30 07/28/17 15:29 07/28/17 14:38 Mirtazapine (Remeron) 15 mg BEDTIME ORAL 07/25/17 21:00 08/24/17 20:59 Morphine Sulfate (Morphine Sulfate) 1 mg Q4H PRN IVP PAIN 4-10 07/23/17 13:15 07/30/17 13:14 Ondansetron HCl (Zofran) 4 mg Q6H PRN IVP Nausea & Vomiting 07/23/17 13:15 08/22/17 13:14 Polyethylene Glycol (Miralax) 17 gm HSPRN PRN ORAL Constipation 07/23/17 21:00 08/22/17 20:59 Valproic Acid (Depakene) 500 mg EVERY 12 HOURS PEG 07/28/17 21:00 08/27/17 20:59 Zolpidem Tartrate (Ambien) 5 mg HSPRN PRN ORAL Insomnia 07/23/17 21:00 07/30/17 20:59 ALEKSANDER LICONA Jul 28, 2017 14:58
--- NOTE | 2017-07-28 16:15 | Procedure Note ---
DATE OF PROCEDURE: 07/28/2017 SURGEON: Fabien Tang M.D. PROCEDURE: Upper endoscopy with biopsy and PEG placement. ANESTHESIOLOGIST: Karley Constantino M.D. INSTRUMENT: Olympus adult flexible upper endoscope. INDICATION: Dysphagia. REASON FOR PROCEDURE: The procedure, risks, benefits, and possible consequences, including hemorrhage, aspiration, perforation and infection, and alternative treatments, were explained to the patient/legal guardian by Dr. Fabien Tang and the patient/legal guardian understood and accepted these risks. PROCEDURE: After informed consent was obtained and the patient was adequately sedated, Olympus upper endoscope was advanced from mouth into the second portion of the duodenum and retroflexion was performed in the stomach. The patient had numerous polyps in the stomach most probably fundic gland polyps, one was biopsied for diagnosis. Then under endoscopic guidance, under sterile condition, a 20-Armenian pull type of G-tube was successfully placed in the epigastric area. The distance from the tip of the tube to skin was about 2.5 cm in size. The patient tolerated the procedure well without any complication. SUMMARY FINDINGS: 1. Multiple gastric polyps, most probably fundic gland polyps. One of them was biopsied for diagnosis. 2. Status post successful PEG placement. RECOMMENDATIONS: 1. Abdominal binder. 2. Elevate the head of the bed at all times. 3. G-tube flush. 4. G-tube care. 5. The patient received a dose of antibiotics clindamycin prior to this procedure. 6. We will start tube feeding later today. I want to thank, Dr. Ever Mendosa, for this kind referral. Fabien Tang M.D. DR: SEB JOB#: [id number] CC: Ever Mendosa D.O.
--- NOTE | 2017-07-28 16:44 | Infectious Diseases Prog Note ---
Assessment/Plan Problems: (1) Dysphagia Assessment & Plan: Etiology? Doubt cutaneous Candidiasis. Status post PEG. (2) Failure to thrive (3) Cerebral palsy (4) Bacteriuria Assessment & Plan: Asymptomatic. Hold off on antibiotics. Subjective Allergies: Coded Allergies: PENICILLINS (Verified Allergy, Unknown, 07/23/17) Objective Vital Signs Last 24 Hour Vital Signs Date Time Temp Pulse Resp B/P (MAP) Pulse Ox O2 Delivery O2 Flow Rate FiO2 07/28/17 15:47 97.6 105 21 95/56 98 Room Air 07/28/17 12:15 97.6 88 20 135/69 97 Room Air 07/28/17 08:41 53 87/55 100 Room Air 07/28/17 08:05 97.2 62 20 106/54 98 Room Air 07/28/17 08:01 72 18 99 07/28/17 07:59 72 18 99 07/28/17 07:55 58 19 102/56 100 Room Air 07/28/17 07:45 63 15 102/68 97 Room Air 07/28/17 07:40 64 18 118/63 98 Nasal Cannula 3.0 07/28/17 07:36 97.6 67 14 113/58 98 Nasal Cannula 3.0 07/28/17 04:00 97.7 50 19 92/50 98 Room Air 07/28/17 00:00 96.8 51 18 88/53 98 Room Air 07/27/17 20:00 97.5 107 18 119/78 97 Room Air Height (Feet): 5 Height (Inches): 10.00 Weight (Pounds): 155 Laboratory Tests Test 07/28/17 08:45 White Blood Count 3.1 K/UL (4.8-10.8) L Red Blood Count 4.42 M/UL (4.70-6.10) L Hemoglobin 14.7 G/DL (14.2-18.0) Hematocrit 42.6 % (42.0-52.0) Mean Corpuscular Volume 96 FL (80-99) Mean Corpuscular Hemoglobin 33.2 PG (27.0-31.0) H Mean Corpuscular Hemoglobin Concent 34.5 G/DL (32.0-36.0) Red Cell Distribution Width 12.3 % (11.6-14.8) Platelet Count 131 K/UL (150-450) L Mean Platelet Volume 9.2 FL (6.5-10.1) Neutrophils (%) (Auto) % (45.0-75.0) Lymphocytes (%) (Auto) % (20.0-45.0) Monocytes (%) (Auto) % (1.0-10.0) Eosinophils (%) (Auto) % (0.0-3.0) Basophils (%) (Auto) % (0.0-2.0) Differential Total Cells Counted 100 Neutrophils % (Manual) 45 % (45-75) Lymphocytes % (Manual) 41 % (20-45) Monocytes % (Manual) 7 % (1-10) Eosinophils % (Manual) 5 % (0-3) H Basophils % (Manual) 2 % (0-2) Band Neutrophils 0 % (0-8) Platelet Estimate Decreased L Platelet Morphology Normal Red Blood Cell Morphology Normal Prothrombin Time 13.7 SEC (9.30-11.50) H Prothromb Time International Ratio 1.3 (0.9-1.1) H Activated Partial Thromboplast Time 31 SEC (23-33) Sodium Level 145 MMOL/L (136-145) Potassium Level 3.6 MMOL/L (3.5-5.1) Chloride Level 107 MMOL/L (98-107) Carbon Dioxide Level 30 MMOL/L (21-32) Anion Gap 8 mmol/L (5-15) Blood Urea Nitrogen 2 mg/dL (7-18) L Creatinine 0.7 MG/DL (0.55-1.30) Estimat Glomerular Filtration Rate > 60 mL/min (>60) Glucose Level 101 MG/DL (74-106) Calcium Level 9.3 MG/DL (8.5-10.1) Magnesium Level 1.7 MG/DL (1.8-2.4) L Total Bilirubin 1.2 MG/DL (0.2-1.0) H Direct Bilirubin 0.3 MG/DL (0.0-0.3) Aspartate Amino Transf (AST/SGOT) 15 U/L (15-37) Alanine Aminotransferase (ALT/SGPT) 29 U/L (12-78) Alkaline Phosphatase 51 U/L (46-116) Total Protein 6.5 G/DL (6.4-8.2) Albumin 3.3 G/DL (3.4-5.0) L Current Medications Medications (Trade) Dose Ordered Sig/Rachid Route PRN Reason Start Time Stop Time Status Last Admin Dose Admin Acetaminophen (Tylenol) 650 mg Q4H PRN ORAL T>100.5 F 07/23/17 13:15 08/22/17 13:14 Al Hydroxide/Mg Hydroxide (Mylanta II) 30 ml Q6H PRN ORAL dyspepsia 07/23/17 13:15 08/22/17 13:14 Dextrose (Dextrose 50%) STAT PRN IV Hypoglycemia 07/23/17 13:15 08/22/17 13:14 Dextrose/Sodium Chloride 1,000 ml @ 75 mls/hr [id number] IV 07/23/17 18:30 08/22/17 18:29 07/28/17 05:19 Famotidine (Pepcid I.v.) 20 mg Q12HR IVP 07/23/17 21:00 08/22/17 20:59 07/28/17 10:25 Heparin Sodium (Porcine) (Heparin 5000 units/ml) 5,000 units EVERY 12 HOURS SUBQ 07/23/17 21:00 08/22/17 20:59 07/26/17 20:10 Insulin Aspart (NovoLOG) BEFORE MEALS AND HS SUBQ 07/23/17 16:30 08/22/17 16:29 Lorazepam (Ativan 2mg/ml 1ml) 0.5 mg Q4H PRN IV For Anxiety 07/23/17 13:15 07/30/17 13:14 07/26/17 11:14 Mirtazapine (Remeron) 15 mg BEDTIME ORAL 07/25/17 21:00 08/24/17 20:59 Morphine Sulfate (Morphine Sulfate) 1 mg Q4H PRN IVP PAIN 4-10 07/23/17 13:15 07/30/17 13:14 Ondansetron HCl (Zofran) 4 mg Q6H PRN IVP Nausea & Vomiting 07/23/17 13:15 08/22/17 13:14 Polyethylene Glycol (Miralax) 17 gm HSPRN PRN ORAL Constipation 07/23/17 21:00 08/22/17 20:59 Valproic Acid (Depakene) 500 mg EVERY 12 HOURS PEG 07/28/17 21:00 08/27/17 20:59 Zolpidem Tartrate (Ambien) 5 mg HSPRN PRN ORAL Insomnia 07/23/17 21:00 07/30/17 20:59 KADI GARCIA Jul 28, 2017 16:44
--- NOTE | 2017-07-28 17:09 | General Progress Note ---
Assessment/Plan Assessment/Plan IMPRESSION/PLAN: 1. Pancytopenia. Continue to monitor. Counts currently not critical. 2. Leukopenia, persistent, multifactorial. 3. Thrombocytopenia, persistent, multifactorial. 4. Anemia of chronic disease. watch counts 5. Coagulopathy, multifactorial. 6. Dysphagia. 7. Thyroid nodule. T3, T4, TSH labs are pending. Subjective Constitutional: Reports: no symptoms HEENT: Reports: no symptoms Cardiovascular: Reports: no symptoms Respiratory: Reports: no symptoms Gastrointestinal/Abdominal: Reports: no symptoms Genitourinary: Reports: no symptoms Neurologic/Psychiatric: Reports: no symptoms Endocrine: Reports: no symptoms Hematologic/Lymphatic: Reports: no symptoms Allergies: Coded Allergies: PENICILLINS (Verified Allergy, Unknown, 07/23/17) Subjective s/p peg placement Objective Last 24 Hour Vital Signs Date Time Temp Pulse Resp B/P (MAP) Pulse Ox O2 Delivery O2 Flow Rate FiO2 07/28/17 15:47 97.6 105 21 95/56 98 Room Air 07/28/17 12:15 97.6 88 20 135/69 97 Room Air 07/28/17 08:41 53 87/55 100 Room Air 07/28/17 08:05 97.2 62 20 106/54 98 Room Air 07/28/17 08:01 72 18 99 07/28/17 07:59 72 18 99 07/28/17 07:55 58 19 102/56 100 Room Air 07/28/17 07:45 63 15 102/68 97 Room Air 07/28/17 07:40 64 18 118/63 98 Nasal Cannula 3.0 07/28/17 07:36 97.6 67 14 113/58 98 Nasal Cannula 3.0 07/28/17 04:00 97.7 50 19 92/50 98 Room Air 07/28/17 00:00 96.8 51 18 88/53 98 Room Air 07/27/17 20:00 97.5 107 18 119/78 97 Room Air Intake and Output 07/28/17 07/29/17 19:00 07:00 Intake Total 450 ml Output Total 500 ml Balance -50 ml IV Total 450 ml Output Urine Total 500 ml Estimated Blood Loss 0 ml Laboratory Tests 07/28/17 08:45: White Blood Count 3.1L, Red Blood Count 4.42L, Hemoglobin 14.7, Hematocrit 42.6 , Mean Corpuscular Volume 96, Mean Corpuscular Hemoglobin 33.2H, Mean Corpuscular Hemoglobin Concent 34.5, Red Cell Distribution Width 12.3, Platelet Count 131L, Mean Platelet Volume 9.2, Neutrophils (%) (Auto) , Lymphocytes (%) ( Auto) , Monocytes (%) (Auto) , Eosinophils (%) (Auto) , Basophils (%) (Auto) , Differential Total Cells Counted 100, Neutrophils % (Manual) 45, Lymphocytes % ( Manual) 41, Monocytes % (Manual) 7, Eosinophils % (Manual) 5H, Basophils % ( Manual) 2, Band Neutrophils 0, Platelet Estimate DecreasedL, Platelet Morphology Normal, Red Blood Cell Morphology Normal, Prothrombin Time 13.7H, Prothromb Time International Ratio 1.3H, Activated Partial Thromboplast Time 31 , Sodium Level 145, Potassium Level 3.6, Chloride Level 107, Carbon Dioxide Level 30, Anion Gap 8, Blood Urea Nitrogen 2L, Creatinine 0.7, Estimat Glomerular Filtration Rate > 60, Glucose Level 101, Calcium Level 9.3, Magnesium Level 1.7L, Total Bilirubin 1.2H, Direct Bilirubin 0.3, Aspartate Amino Transf (AST/SGOT) 15, Alanine Aminotransferase (ALT/SGPT) 29, Alkaline Phosphatase 51, Total Protein 6.5, Albumin 3.3L Height (Feet): 5 Height (Inches): 10.00 Weight (Pounds): 155 General Appearance: no apparent distress EENT: normal ENT inspection Neck: normal alignment Respiratory/Chest: chest wall non-tender Skin: warm/dry Kendall Bullard Jul 28, 2017 17:09
[2017-07-28 19:23] LABS: THYROID STIMULATING HORMONE 0.849 uiU/mL (0.360-3.740)
[2017-07-28] MEDS: Valproic Acid 250mg/5ml Liquid PEG SCH (21:47)
[2017-07-29] VITALS: BP 93/52
[2017-07-29] MEDS: D5 1/2NS 1,000 ML IV SCH ×2 (01:56→15:13)
[2017-07-29 04:00] VITALS: BP 89/57
[2017-07-29] MEDS: NovoLOG Insulin Flexpen SUBQ SCH ×5 (06:00→23:38)
[2017-07-29 07:00] LABS: BASOPHILS % (AUTO) 0.3 % (0.0-2.0); EOSINOPHILS % (AUTO) 1.9 % (0.0-3.0); LYMPHOCYTES % (AUTO) 23.7 % (20.0-45.0); MEAN CORPUSCULAR HEMOGLOBIN 32.3 PG (27.0-31.0); MEAN CORPUSCULAR HGB CONC 34.5 G/DL (32.0-36.0); MEAN CORPUSCULAR VOLUME 94 FL (80-99); MEAN PLATELET VOLUME 9.5 FL (6.5-10.1); MONOCYTES % (AUTO) 12.3 % (1.0-10.0); NEUTROPHILS % (AUTO) 61.8 % (45.0-75.0); PLATELET COUNT 123 K/UL (150-450); RED BLOOD COUNT 3.79 M/UL (4.70-6.10); WHITE BLOOD COUNT 6.1 K/UL (4.8-10.8)
[2017-07-29 07:03] LABS: ANION GAP 7 mmol/L (5-15); CALCIUM 8.8 MG/DL (8.5-10.1); CARBON DIOXIDE 29 MMOL/L (21-32); CHLORIDE 108 MMOL/L (98-107); CREATININE 0.7 MG/DL (0.55-1.30); GLOMERULAR FILTRATION RATE > 60 mL/min (>60); PHOSPHORUS 3.1 MG/DL (2.5-4.9); POTASSIUM 3.3 MMOL/L (3.5-5.1); SODIUM 144 MMOL/L (136-145)
--- NOTE | 2017-07-29 07:53 | General Progress Note ---
Assessment/Plan Problem List: (1) Cerebral palsy ICD Codes: G80.9 - Cerebral palsy, unspecified SNOMED: 989219038 (2) UTI (urinary tract infection) ICD Codes: N39.0 - Urinary tract infection, site not specified SNOMED: 67920040 (3) Malnutrition ICD Codes: E46 - Unspecified protein-calorie malnutrition SNOMED: 0832615 (4) Anemia ICD Codes: D64.9 - Anemia, unspecified SNOMED: 503324133 (5) Dysphagia ICD Codes: R13.10 - Dysphagia, unspecified SNOMED: 52549371, 374349648 (6) Foreign body SNOMED: 355916375 (7) Failure to thrive SNOMED: 15606428 Status: stable, progressing, tolerating diet Assessment/Plan ot pt diet abx cbc bmp am heme eval dc plan Subjective Constitutional: Reports: weakness Allergies: Coded Allergies: PENICILLINS (Verified Allergy, Unknown, 07/23/17) All Systems: reviewed and negative except above Subjective sl confused s/p gtube Objective Last 24 Hour Vital Signs Date Time Temp Pulse Resp B/P (MAP) Pulse Ox O2 Delivery O2 Flow Rate FiO2 07/29/17 04:00 97.7 64 19 89/57 98 Room Air 07/29/17 00:00 99.0 57 20 93/52 99 Room Air 07/28/17 20:00 99.0 92 19 90/55 95 Room Air 07/28/17 15:47 97.6 105 21 95/56 98 Room Air 07/28/17 12:15 97.6 88 20 135/69 97 Room Air 07/28/17 08:41 53 87/55 100 Room Air 07/28/17 08:05 97.2 62 20 106/54 98 Room Air 07/28/17 08:01 72 18 99 07/28/17 07:59 72 18 99 07/28/17 07:55 58 19 102/56 100 Room Air Laboratory Tests 07/28/17 08:45: White Blood Count 3.1L, Red Blood Count 4.42L, Hemoglobin 14.7, Hematocrit 42.6 , Mean Corpuscular Volume 96, Mean Corpuscular Hemoglobin 33.2H, Mean Corpuscular Hemoglobin Concent 34.5, Red Cell Distribution Width 12.3, Platelet Count 131L, Mean Platelet Volume 9.2, Neutrophils (%) (Auto) , Lymphocytes (%) ( Auto) , Monocytes (%) (Auto) , Eosinophils (%) (Auto) , Basophils (%) (Auto) , Differential Total Cells Counted 100, Neutrophils % (Manual) 45, Lymphocytes % ( Manual) 41, Monocytes % (Manual) 7, Eosinophils % (Manual) 5H, Basophils % ( Manual) 2, Band Neutrophils 0, Platelet Estimate DecreasedL, Platelet Morphology Normal, Red Blood Cell Morphology Normal, Prothrombin Time 13.7H, Prothromb Time International Ratio 1.3H, Activated Partial Thromboplast Time 31 , Sodium Level 145, Potassium Level 3.6, Chloride Level 107, Carbon Dioxide Level 30, Anion Gap 8, Blood Urea Nitrogen 2L, Creatinine 0.7, Estimat Glomerular Filtration Rate > 60, Glucose Level 101, Calcium Level 9.3, Magnesium Level 1.7L, Total Bilirubin 1.2H, Direct Bilirubin 0.3, Aspartate Amino Transf (AST/SGOT) 15, Alanine Aminotransferase (ALT/SGPT) 29, Alkaline Phosphatase 51, Total Protein 6.5, Albumin 3.3L 07/28/17 18:50: Thyroid Stimulating Hormone (TSH) 0.849, Free Thyroxine 1.31, Free Triiodothyronine [Pending] 07/29/17 06:15: White Blood Count 6.1#, Red Blood Count 3.79L, Hemoglobin 12.3L, Hematocrit 35.6L, Mean Corpuscular Volume 94, Mean Corpuscular Hemoglobin 32.3H, Mean Corpuscular Hemoglobin Concent 34.5, Red Cell Distribution Width 12.0, Platelet Count 123L, Mean Platelet Volume 9.5, Neutrophils (%) (Auto) 61.8, Lymphocytes ( %) (Auto) 23.7, Monocytes (%) (Auto) 12.3H, Eosinophils (%) (Auto) 1.9, Basophils (%) (Auto) 0.3, Sodium Level 144, Potassium Level 3.3L, Chloride Level 108H, Carbon Dioxide Level 29, Anion Gap 7, Blood Urea Nitrogen 2L, Creatinine 0.7, Estimat Glomerular Filtration Rate > 60, Glucose Level 88, Calcium Level 8.8, Phosphorus Level 3.1 Height (Feet): 5 Height (Inches): 10.00 Weight (Pounds): 155 General Appearance: lethargic EENT: normal ENT inspection Neck: normal alignment Cardiovascular: normal peripheral pulses, normal rate, regular rhythm Respiratory/Chest: chest wall non-tender, lungs clear, normal breath sounds Abdomen: normal bowel sounds, non tender, soft Extremities: normal inspection Edema: no edema noted Arm (L), no edema noted Arm (R), no edema noted Leg (L), no edema noted Leg (R), no edema noted Pedal (L), no edema noted Pedal (R), no edema noted Generalized Neurologic: motor weakness Skin: normal pigmentation, warm/dry IRLANDA URIAS Jul 29, 2017 07:53
[2017-07-29 07:58] VITALS: BP 103/60
[2017-07-29] MEDS: Heparin 5000 units/ml inj SUBQ SCH ×2 (09:00→20:45)
[2017-07-29] MEDS: Valproic Acid 250mg/5ml Liquid PEG SCH ×2 (09:39→20:45)
--- NOTE | 2017-07-29 11:23 | GI Progress Note ---
Assessment/Plan Problems: (1) Anemia ICD Codes: D64.9 - Anemia, unspecified SNOMED: 427148589 (2) Failure to thrive SNOMED: 14118998 (3) Dysphagia ICD Codes: R13.10 - Dysphagia, unspecified SNOMED: 54203049, 916860329 (4) Malnutrition ICD Codes: E46 - Unspecified protein-calorie malnutrition SNOMED: 6056105 (5) Fecal impaction ICD Codes: K56.41 - Fecal impaction SNOMED: 69931176 Status: stable Status Narrative Discussed with Dr. Tang. Assessment/Plan - Malnutrition - cerebral palsy - possible foreign body on imaging Noted foreign body is wire from a spinal stimulator noted in CT chest. SUMMARY FINDINGS: 1. Multiple gastric polyps, most probably fundic gland polyps. One of them was biopsied for diagnosis. 2. Status post successful PEG placement. RECOMMENDATIONS: okay for DC per GI standpoint GTFs per dietary, tolerating Abdominal binder. Elevate the head of the bed at all times. G-tube flush. G-tube care. The patient received a dose of antibiotics clindamycin prior to this procedure. Subjective Subjective limited Objective Last 24 Hour Vital Signs Date Time Temp Pulse Resp B/P (MAP) Pulse Ox O2 Delivery O2 Flow Rate FiO2 07/29/17 07:58 98.2 81 20 103/60 99 Room Air 07/29/17 04:00 97.7 64 19 89/57 98 Room Air 07/29/17 00:00 99.0 57 20 93/52 99 Room Air 07/28/17 20:00 99.0 92 19 90/55 95 Room Air 07/28/17 15:47 97.6 105 21 95/56 98 Room Air 07/28/17 12:15 97.6 88 20 135/69 97 Room Air Laboratory Tests Test 07/28/17 18:50 07/29/17 06:15 Thyroid Stimulating Hormone (TSH) 0.849 uiU/mL (0.360-3.740) Free Thyroxine 1.31 NG/DL (0.10-1.46) Free Triiodothyronine 2.7 pg/mL (2.0-4.4) White Blood Count 6.1 K/UL (4.8-10.8) # Red Blood Count 3.79 M/UL (4.70-6.10) L Hemoglobin 12.3 G/DL (14.2-18.0) L Hematocrit 35.6 % (42.0-52.0) L Mean Corpuscular Volume 94 FL (80-99) Mean Corpuscular Hemoglobin 32.3 PG (27.0-31.0) H Mean Corpuscular Hemoglobin Concent 34.5 G/DL (32.0-36.0) Red Cell Distribution Width 12.0 % (11.6-14.8) Platelet Count 123 K/UL (150-450) L Mean Platelet Volume 9.5 FL (6.5-10.1) Neutrophils (%) (Auto) 61.8 % (45.0-75.0) Lymphocytes (%) (Auto) 23.7 % (20.0-45.0) Monocytes (%) (Auto) 12.3 % (1.0-10.0) H Eosinophils (%) (Auto) 1.9 % (0.0-3.0) Basophils (%) (Auto) 0.3 % (0.0-2.0) Sodium Level 144 MMOL/L (136-145) Potassium Level 3.3 MMOL/L (3.5-5.1) L Chloride Level 108 MMOL/L (98-107) H Carbon Dioxide Level 29 MMOL/L (21-32) Anion Gap 7 mmol/L (5-15) Blood Urea Nitrogen 2 mg/dL (7-18) L Creatinine 0.7 MG/DL (0.55-1.30) Estimat Glomerular Filtration Rate > 60 mL/min (>60) Glucose Level 88 MG/DL (74-106) Calcium Level 8.8 MG/DL (8.5-10.1) Phosphorus Level 3.1 MG/DL (2.5-4.9) Height (Feet): 5 Height (Inches): 10.00 Weight (Pounds): 155 General Appearance: WD/WN, no apparent distress, alert Cardiovascular: normal rate Respiratory/Chest: normal breath sounds, no respiratory distress Abdominal Exam: normal bowel sounds, non tender, soft, GT site - c/d/i Extremities: normal range of motion, non-tender Julieta Nieto NJacob Jul 29, 2017 11:23
[2017-07-29 11:40] VITALS: BP 97/40
--- NOTE | 2017-07-29 15:20 | Pulmonology Progress Note ---
Assessment/Plan Problems: (1) At high risk for aspiration (2) Spastic quadriparesis (3) Malnutrition (4) Cerebral palsy (5) Failure to thrive Assessment/Plan PEG by GI done, tolerated well swallow study noted symptomatic treatment check electrolytes all notes and meds reviewed. dc when tolerating feeding Subjective ROS Limited/Unobtainable: No Constitutional: Reports: no symptoms HEENT: Repors: no symptoms Allergies: Coded Allergies: PENICILLINS (Verified Allergy, Unknown, 07/23/17) Objective Last 24 Hour Vital Signs Date Time Temp Pulse Resp B/P (MAP) Pulse Ox O2 Delivery O2 Flow Rate FiO2 07/29/17 11:40 97.3 64 20 97/40 95 Room Air 07/29/17 07:58 98.2 81 20 103/60 99 Room Air 07/29/17 04:00 97.7 64 19 89/57 98 Room Air 07/29/17 00:00 99.0 57 20 93/52 99 Room Air 07/28/17 20:00 99.0 92 19 90/55 95 Room Air 07/28/17 15:47 97.6 105 21 95/56 98 Room Air Intake and Output 07/29/17 07/30/17 19:00 07:00 Intake Total 825 ml Output Total 350 ml Balance 475 ml Intake Oral 0 ml Free Water 50 ml IV Total 450 ml Tube Feeding 325 ml Output Urine Total 350 ml General Appearance: WD/WN HEENT: normocephalic, atraumatic Respiratory/Chest: chest wall non-tender, lungs clear, normal breath sounds Cardiovascular: normal peripheral pulses, normal rate Abdomen: normal bowel sounds, soft, non tender Genitourinary: normal external genitalia Extremities: no cyanosis, no clubbing Skin: no rash Laboratory Tests 07/28/17 18:50: Thyroid Stimulating Hormone (TSH) 0.849, Free Thyroxine 1.31, Free Triiodothyronine 2.7 07/29/17 06:15: White Blood Count 6.1#, Red Blood Count 3.79L, Hemoglobin 12.3L, Hematocrit 35.6L, Mean Corpuscular Volume 94, Mean Corpuscular Hemoglobin 32.3H, Mean Corpuscular Hemoglobin Concent 34.5, Red Cell Distribution Width 12.0, Platelet Count 123L, Mean Platelet Volume 9.5, Neutrophils (%) (Auto) 61.8, Lymphocytes ( %) (Auto) 23.7, Monocytes (%) (Auto) 12.3H, Eosinophils (%) (Auto) 1.9, Basophils (%) (Auto) 0.3, Sodium Level 144, Potassium Level 3.3L, Chloride Level 108H, Carbon Dioxide Level 29, Anion Gap 7, Blood Urea Nitrogen 2L, Creatinine 0.7, Estimat Glomerular Filtration Rate > 60, Glucose Level 88, Calcium Level 8.8, Phosphorus Level 3.1 Current Medications Medications (Trade) Dose Ordered Sig/Rachid Route PRN Reason Start Time Stop Time Status Last Admin Dose Admin Acetaminophen (Tylenol) 650 mg Q4H PRN ORAL T>100.5 F 07/23/17 13:15 08/22/17 13:14 Al Hydroxide/Mg Hydroxide (Mylanta II) 30 ml Q6H PRN ORAL dyspepsia 07/23/17 13:15 08/22/17 13:14 Dextrose (Dextrose 50%) STAT PRN IV Hypoglycemia 07/23/17 13:15 08/22/17 13:14 Dextrose/Sodium Chloride 1,000 ml @ 75 mls/hr [id number] IV 07/23/17 18:30 08/22/17 18:29 07/29/17 15:13 Famotidine (Pepcid I.v.) 20 mg Q12HR IVP 07/23/17 21:00 08/22/17 20:59 07/29/17 09:36 Heparin Sodium (Porcine) (Heparin 5000 units/ml) 5,000 units EVERY 12 HOURS SUBQ 07/23/17 21:00 08/22/17 20:59 07/26/17 20:10 Insulin Aspart (NovoLOG) Q6HR SUBQ 07/28/17 18:00 08/22/17 16:29 07/28/17 19:18 Lorazepam (Ativan 2mg/ml 1ml) 0.5 mg Q4H PRN IV For Anxiety 07/23/17 13:15 07/30/17 13:14 07/26/17 11:14 Mirtazapine (Remeron) 15 mg BEDTIME ORAL 07/25/17 21:00 08/24/17 20:59 07/28/17 21:47 Morphine Sulfate (Morphine Sulfate) 1 mg Q4H PRN IVP PAIN 4-10 10/19/17 13:15 07/30/17 13:14 Ondansetron HCl (Zofran) 4 mg Q6H PRN IVP Nausea & Vomiting 07/23/17 13:15 08/22/17 13:14 Polyethylene Glycol (Miralax) 17 gm HSPRN PRN ORAL Constipation 07/23/17 21:00 08/22/17 20:59 Valproic Acid (Depakene) 500 mg EVERY 12 HOURS PEG 07/28/17 21:00 08/27/17 20:59 07/29/17 09:39 Zolpidem Tartrate (Ambien) 5 mg HSPRN PRN ORAL Insomnia 07/23/17 21:00 07/30/17 20:59 ALEKSANDER LICONA Jul 29, 2017 15:20
[2017-07-29 16:00] VITALS: BP 88/58
[2017-07-29 20:37] VITALS: BP 85/52
--- NOTE | 2017-07-29 22:14 | General Progress Note ---
Assessment/Plan Assessment/Plan IMPRESSION/PLAN: 1. Pancytopenia. Continue to monitor. Counts currently not critical. 2. Leukopenia, persistent, multifactorial. 3. Thrombocytopenia, persistent, multifactorial. 4. Anemia of chronic disease. watch counts. no evidence of bleeding 5. Coagulopathy, multifactorial. 6. Dysphagia. 7. Thyroid nodule. T3, T4, TSH labs are pending. Subjective ROS Limited/Unobtainable: Yes Allergies: Coded Allergies: PENICILLINS (Verified Allergy, Unknown, 07/23/17) Subjective s/p peg placement Objective Last 24 Hour Vital Signs Date Time Temp Pulse Resp B/P (MAP) Pulse Ox O2 Delivery O2 Flow Rate FiO2 07/29/17 20:37 99.9 71 18 85/52 96 Room Air 07/29/17 16:00 97.2 64 20 88/58 95 Room Air 07/29/17 11:40 97.3 64 20 97/40 95 Room Air 07/29/17 07:58 98.2 81 20 103/60 99 Room Air 07/29/17 04:00 97.7 64 19 89/57 98 Room Air 07/29/17 00:00 99.0 57 20 93/52 99 Room Air Intake and Output 07/29/17 07/30/17 19:00 07:00 Intake Total 1500 ml Output Total 750 ml Balance 750 ml Intake Oral 0 ml Free Water 50 ml IV Total 825 ml Tube Feeding 625 ml Output Urine Total 750 ml Laboratory Tests 07/29/17 06:15: White Blood Count 6.1#, Red Blood Count 3.79L, Hemoglobin 12.3L, Hematocrit 35.6L, Mean Corpuscular Volume 94, Mean Corpuscular Hemoglobin 32.3H, Mean Corpuscular Hemoglobin Concent 34.5, Red Cell Distribution Width 12.0, Platelet Count 123L, Mean Platelet Volume 9.5, Neutrophils (%) (Auto) 61.8, Lymphocytes ( %) (Auto) 23.7, Monocytes (%) (Auto) 12.3H, Eosinophils (%) (Auto) 1.9, Basophils (%) (Auto) 0.3, Sodium Level 144, Potassium Level 3.3L, Chloride Level 108H, Carbon Dioxide Level 29, Anion Gap 7, Blood Urea Nitrogen 2L, Creatinine 0.7, Estimat Glomerular Filtration Rate > 60, Glucose Level 88, Calcium Level 8.8, Phosphorus Level 3.1 Height (Feet): 5 Height (Inches): 10.00 Weight (Pounds): 155 Kendall Bullard Jul 29, 2017 22:14
--- NOTE | 2017-07-29 22:50 | Infectious Diseases Prog Note ---
Assessment/Plan Problems: (1) Dysphagia Assessment & Plan: Etiology? Doubt cutaneous Candidiasis. Status post PEG. (2) Failure to thrive (3) Cerebral palsy (4) Bacteriuria Assessment & Plan: Asymptomatic. Hold off on antibiotics. Subjective Allergies: Coded Allergies: PENICILLINS (Verified Allergy, Unknown, 07/23/17) Objective Vital Signs Last 24 Hour Vital Signs Date Time Temp Pulse Resp B/P (MAP) Pulse Ox O2 Delivery O2 Flow Rate FiO2 07/29/17 20:37 99.9 71 18 85/52 96 Room Air 07/29/17 16:00 97.2 64 20 88/58 95 Room Air 07/29/17 11:40 97.3 64 20 97/40 95 Room Air 07/29/17 07:58 98.2 81 20 103/60 99 Room Air 07/29/17 04:00 97.7 64 19 89/57 98 Room Air 07/29/17 00:00 99.0 57 20 93/52 99 Room Air Height (Feet): 5 Height (Inches): 10.00 Weight (Pounds): 155 Laboratory Tests Test 07/29/17 06:15 White Blood Count 6.1 K/UL (4.8-10.8) # Red Blood Count 3.79 M/UL (4.70-6.10) L Hemoglobin 12.3 G/DL (14.2-18.0) L Hematocrit 35.6 % (42.0-52.0) L Mean Corpuscular Volume 94 FL (80-99) Mean Corpuscular Hemoglobin 32.3 PG (27.0-31.0) H Mean Corpuscular Hemoglobin Concent 34.5 G/DL (32.0-36.0) Red Cell Distribution Width 12.0 % (11.6-14.8) Platelet Count 123 K/UL (150-450) L Mean Platelet Volume 9.5 FL (6.5-10.1) Neutrophils (%) (Auto) 61.8 % (45.0-75.0) Lymphocytes (%) (Auto) 23.7 % (20.0-45.0) Monocytes (%) (Auto) 12.3 % (1.0-10.0) H Eosinophils (%) (Auto) 1.9 % (0.0-3.0) Basophils (%) (Auto) 0.3 % (0.0-2.0) Sodium Level 144 MMOL/L (136-145) Potassium Level 3.3 MMOL/L (3.5-5.1) L Chloride Level 108 MMOL/L (98-107) H Carbon Dioxide Level 29 MMOL/L (21-32) Anion Gap 7 mmol/L (5-15) Blood Urea Nitrogen 2 mg/dL (7-18) L Creatinine 0.7 MG/DL (0.55-1.30) Estimat Glomerular Filtration Rate > 60 mL/min (>60) Glucose Level 88 MG/DL (74-106) Calcium Level 8.8 MG/DL (8.5-10.1) Phosphorus Level 3.1 MG/DL (2.5-4.9) Current Medications Medications (Trade) Dose Ordered Sig/Rachid Route PRN Reason Start Time Stop Time Status Last Admin Dose Admin Acetaminophen (Tylenol) 650 mg Q4H PRN ORAL T>100.5 F 07/23/17 13:15 08/22/17 13:14 Al Hydroxide/Mg Hydroxide (Mylanta II) 30 ml Q6H PRN ORAL dyspepsia 07/23/17 13:15 08/22/17 13:14 Dextrose (Dextrose 50%) STAT PRN IV Hypoglycemia 07/23/17 13:15 08/22/17 13:14 Dextrose/Sodium Chloride 1,000 ml @ 75 mls/hr [id number] IV 07/23/17 18:30 08/22/17 18:29 07/29/17 15:13 Famotidine (Pepcid I.v.) 20 mg Q12HR IVP 07/23/17 21:00 08/22/17 20:59 07/29/17 20:45 Heparin Sodium (Porcine) (Heparin 5000 units/ml) 5,000 units EVERY 12 HOURS SUBQ 07/23/17 21:00 08/22/17 20:59 07/26/17 20:10 Insulin Aspart (NovoLOG) Q6HR SUBQ 07/28/17 18:00 08/22/17 16:29 07/28/17 19:18 Lorazepam (Ativan 2mg/ml 1ml) 0.5 mg Q4H PRN IV For Anxiety 07/23/17 13:15 07/30/17 13:14 07/26/17 11:14 Mirtazapine (Remeron) 15 mg BEDTIME ORAL 07/25/17 21:00 08/24/17 20:59 07/29/17 20:45 Morphine Sulfate (Morphine Sulfate) 1 mg Q4H PRN IVP PAIN 4-10 07/23/17 13:15 07/30/17 13:14 Ondansetron HCl (Zofran) 4 mg Q6H PRN IVP Nausea & Vomiting 07/23/17 13:15 08/22/17 13:14 Polyethylene Glycol (Miralax) 17 gm HSPRN PRN ORAL Constipation 07/23/17 21:00 08/22/17 20:59 Valproic Acid (Depakene) 500 mg EVERY 12 HOURS PEG 07/28/17 21:00 08/27/17 20:59 07/29/17 20:45 Zolpidem Tartrate (Ambien) 5 mg HSPRN PRN ORAL Insomnia 07/23/17 21:00 07/30/17 20:59 KADI GARCIA Jul 29, 2017 22:50
[2017-07-30 00:18] VITALS: BP 88/61
[2017-07-30] MEDS: D5 1/2NS 1,000 ML IV SCH (03:10)
[2017-07-30 04:00] VITALS: BP 90/58
[2017-07-30] MEDS: NovoLOG Insulin Flexpen SUBQ SCH ×2 (06:00→12:00)
--- NOTE | 2017-07-30 06:48 | General Progress Note ---
Assessment/Plan Problem List: (1) Cerebral palsy ICD Codes: G80.9 - Cerebral palsy, unspecified SNOMED: 082163486 (2) UTI (urinary tract infection) ICD Codes: N39.0 - Urinary tract infection, site not specified SNOMED: 70653748 (3) Malnutrition ICD Codes: E46 - Unspecified protein-calorie malnutrition SNOMED: 8639089 (4) Anemia ICD Codes: D64.9 - Anemia, unspecified SNOMED: 096262224 (5) Dysphagia ICD Codes: R13.10 - Dysphagia, unspecified SNOMED: 51834693, 529318197 (6) Foreign body SNOMED: 395195595 (7) Failure to thrive SNOMED: 49474057 Status: stable, progressing, tolerating diet Assessment/Plan ot pt diet abx cbc bmp amgi cleared dc snf Subjective Constitutional: Reports: weakness Allergies: Coded Allergies: PENICILLINS (Verified Allergy, Unknown, 07/23/17) All Systems: reviewed and negative except above Subjective sl confused s/p gtube Objective Last 24 Hour Vital Signs Date Time Temp Pulse Resp B/P (MAP) Pulse Ox O2 Delivery O2 Flow Rate FiO2 07/30/17 04:00 98.0 54 20 90/58 99 Room Air 07/30/17 00:18 98.7 69 19 88/61 98 Room Air 07/29/17 20:37 99.9 71 18 85/52 96 Room Air 07/29/17 16:00 97.2 64 20 88/58 95 Room Air 07/29/17 11:40 97.3 64 20 97/40 95 Room Air 07/29/17 07:58 98.2 81 20 103/60 99 Room Air Laboratory Tests 07/30/17 05:45: White Blood Count [Pending], Red Blood Count [Pending], Hemoglobin [Pending], Hematocrit [Pending], Mean Corpuscular Volume [Pending], Mean Corpuscular Hemoglobin [Pending], Mean Corpuscular Hemoglobin Concent [Pending], Red Cell Distribution Width [Pending], Platelet Count [Pending], Mean Platelet Volume [ Pending], Neutrophils (%) (Auto) [Pending], Lymphocytes (%) (Auto) [Pending], Monocytes (%) (Auto) [Pending], Eosinophils (%) (Auto) [Pending], Basophils (%) (Auto) [Pending], Sodium Level [Pending], Potassium Level [Pending], Chloride Level [Pending], Carbon Dioxide Level [Pending], Blood Urea Nitrogen [Pending], Creatinine [Pending], Estimat Glomerular Filtration Rate [Pending], Glucose Level [Pending], Calcium Level [Pending] Height (Feet): 5 Height (Inches): 10.00 Weight (Pounds): 155 General Appearance: lethargic EENT: normal ENT inspection Neck: normal alignment Cardiovascular: normal peripheral pulses, normal rate, regular rhythm Respiratory/Chest: chest wall non-tender, lungs clear, normal breath sounds Abdomen: normal bowel sounds, non tender, soft Extremities: normal inspection Edema: no edema noted Arm (L), no edema noted Arm (R), no edema noted Leg (L), no edema noted Leg (R), no edema noted Pedal (L), no edema noted Pedal (R), no edema noted Generalized Neurologic: motor weakness Skin: normal pigmentation, warm/dry IRLANDA URIAS Jul 30, 2017 06:48
[2017-07-30 06:55] LABS: BASOPHILS % (AUTO) 0.4 % (0.0-2.0); EOSINOPHILS % (AUTO) 2.9 % (0.0-3.0); LYMPHOCYTES % (AUTO) 23.7 % (20.0-45.0); MEAN CORPUSCULAR HEMOGLOBIN 32.7 PG (27.0-31.0); MEAN CORPUSCULAR HGB CONC 33.7 G/DL (32.0-36.0); MEAN CORPUSCULAR VOLUME 97 FL (80-99); MEAN PLATELET VOLUME 10.2 FL (6.5-10.1); MONOCYTES % (AUTO) 11.3 % (1.0-10.0); NEUTROPHILS % (AUTO) 61.7 % (45.0-75.0); PLATELET COUNT 117 K/UL (150-450); RED BLOOD COUNT 3.71 M/UL (4.70-6.10); RED CELL DISTRIBUTION WIDTH 12.7 % (11.6-14.8); WHITE BLOOD COUNT 4.8 K/UL (4.8-10.8)
[2017-07-30 07:09] LABS: ANION GAP 6 mmol/L (5-15); CALCIUM 8.8 MG/DL (8.5-10.1); CARBON DIOXIDE 31 MMOL/L (21-32); CHLORIDE 110 MMOL/L (98-107); CREATININE 0.8 MG/DL (0.55-1.30); GLOMERULAR FILTRATION RATE > 60 mL/min (>60); POTASSIUM 3.9 MMOL/L (3.5-5.1); SODIUM 147 MMOL/L (136-145)
[2017-07-30 08:00] VITALS: BP 80/48
[2017-07-30] MEDS: Valproic Acid 250mg/5ml Liquid PEG SCH (08:53)
[2017-07-30] MEDS: Heparin 5000 units/ml inj SUBQ SCH (08:54)
[2017-07-30] MEDS ORDERED: PEPCID AC20 M2 PO (09:49)
[2017-07-30] MEDS ORDERED: VALPROIC A250 MG/51 GT (09:50)
[2017-07-30] MEDS ORDERED: AMBIEN5 MG GT (09:53)
[2017-07-30] MEDS ORDERED: MIRALAX17 G2 GT (09:58)
--- NOTE | 2017-07-30 10:23 | GI Progress Note ---
Assessment/Plan Problems: (1) Anemia ICD Codes: D64.9 - Anemia, unspecified SNOMED: 258547690 (2) Failure to thrive SNOMED: 60374602 (3) Dysphagia ICD Codes: R13.10 - Dysphagia, unspecified SNOMED: 18917982, 644011459 (4) Malnutrition ICD Codes: E46 - Unspecified protein-calorie malnutrition SNOMED: 5785170 (5) Fecal impaction ICD Codes: K56.41 - Fecal impaction SNOMED: 33787825 Status: stable Status Narrative Discussed with Dr. Tang. Assessment/Plan - Malnutrition - cerebral palsy - possible foreign body on imaging Noted foreign body is wire from a spinal stimulator noted in CT chest. SUMMARY FINDINGS: 1. Multiple gastric polyps, most probably fundic gland polyps. One of them was biopsied for diagnosis. 2. Status post successful PEG placement. RECOMMENDATIONS: okay for DC per GI standpoint GTFs per dietary, tolerating Abdominal binder. Elevate the head of the bed at all times. G-tube flush. G-tube care. The patient received a dose of antibiotics clindamycin prior to this procedure. Subjective Subjective limited Objective Last 24 Hour Vital Signs Date Time Temp Pulse Resp B/P (MAP) Pulse Ox O2 Delivery O2 Flow Rate FiO2 07/30/17 08:00 97.3 60 20 80/48 96 Room Air 07/30/17 04:00 98.0 54 20 90/58 99 Room Air 07/30/17 00:18 98.7 69 19 88/61 98 Room Air 07/29/17 20:37 99.9 71 18 85/52 96 Room Air 07/29/17 16:00 97.2 64 20 88/58 95 Room Air 07/29/17 11:40 97.3 64 20 97/40 95 Room Air Laboratory Tests Test 07/30/17 05:45 White Blood Count 4.8 K/UL (4.8-10.8) Red Blood Count 3.71 M/UL (4.70-6.10) L Hemoglobin 12.2 G/DL (14.2-18.0) L Hematocrit 36.0 % (42.0-52.0) L Mean Corpuscular Volume 97 FL (80-99) Mean Corpuscular Hemoglobin 32.7 PG (27.0-31.0) H Mean Corpuscular Hemoglobin Concent 33.7 G/DL (32.0-36.0) Red Cell Distribution Width 12.7 % (11.6-14.8) Platelet Count 117 K/UL (150-450) L Mean Platelet Volume 10.2 FL (6.5-10.1) H Neutrophils (%) (Auto) 61.7 % (45.0-75.0) Lymphocytes (%) (Auto) 23.7 % (20.0-45.0) Monocytes (%) (Auto) 11.3 % (1.0-10.0) H Eosinophils (%) (Auto) 2.9 % (0.0-3.0) Basophils (%) (Auto) 0.4 % (0.0-2.0) Sodium Level 147 MMOL/L (136-145) H Potassium Level 3.9 MMOL/L (3.5-5.1) Chloride Level 110 MMOL/L (98-107) H Carbon Dioxide Level 31 MMOL/L (21-32) Anion Gap 6 mmol/L (5-15) Blood Urea Nitrogen 7 mg/dL (7-18) Creatinine 0.8 MG/DL (0.55-1.30) Estimat Glomerular Filtration Rate > 60 mL/min (>60) Glucose Level 76 MG/DL (74-106) Calcium Level 8.8 MG/DL (8.5-10.1) Height (Feet): 5 Height (Inches): 10.00 Weight (Pounds): 155 General Appearance: WD/WN, no apparent distress, alert, thin Cardiovascular: normal rate Respiratory/Chest: normal breath sounds, no respiratory distress Abdominal Exam: normal bowel sounds, non tender, soft, GT site - c/d/i Julieta Nieto N.P. Jul 30, 2017 10:23
[2017-07-30 12:00] VITALS: BP_SYST 80; BP_SYST 97; BP_DIAS 45; BP_DIAS 58
[2017-07-30] MEDS ORDERED: D5 1/2NS 1000ml IV ONE (14:08)
--- NOTE | 2017-07-30 16:58 | Pulmonology Progress Note ---
Assessment/Plan Problems: (1) At high risk for aspiration (2) Spastic quadriparesis (3) Malnutrition (4) Cerebral palsy (5) Failure to thrive Assessment/Plan PEG by GI done, tolerated well tolerating diet symptomatic treatment check electrolytes all notes and meds reviewed. dc when bed available Subjective ROS Limited/Unobtainable: No Constitutional: Reports: no symptoms HEENT: Repors: no symptoms Respiratory: Reports: no symptoms Allergies: Coded Allergies: PENICILLINS (Verified Allergy, Unknown, 07/23/17) Objective Last 24 Hour Vital Signs Date Time Temp Pulse Resp B/P (MAP) Pulse Ox O2 Delivery O2 Flow Rate FiO2 07/30/17 12:00 97.5 62 20 97/58 98 Room Air 07/30/17 12:00 97.2 61 20 80/45 96 Room Air 07/30/17 08:00 97.3 60 20 80/48 96 Room Air 07/30/17 04:00 98.0 54 20 90/58 99 Room Air 07/30/17 00:18 98.7 69 19 88/61 98 Room Air 07/29/17 20:37 99.9 71 18 85/52 96 Room Air Intake and Output 07/30/17 07/31/17 19:00 07:00 Intake Total 480 ml Balance 480 ml Free Water 120 ml Tube Feeding 360 ml General Appearance: WD/WN HEENT: normocephalic Respiratory/Chest: chest wall non-tender, lungs clear Cardiovascular: normal peripheral pulses, regular rhythm Abdomen: normal bowel sounds, no organomegaly Genitourinary: normal external genitalia Extremities: no clubbing Neurologic/Psychiatric: knife setter II-XII grossly normal, abnormal gait Lymphatic: no neck adenopathy Laboratory Tests 07/30/17 05:45: White Blood Count 4.8, Red Blood Count 3.71L, Hemoglobin 12.2L, Hematocrit 36.0L , Mean Corpuscular Volume 97, Mean Corpuscular Hemoglobin 32.7H, Mean Corpuscular Hemoglobin Concent 33.7, Red Cell Distribution Width 12.7, Platelet Count 117L, Mean Platelet Volume 10.2H, Neutrophils (%) (Auto) 61.7, Lymphocytes (%) (Auto) 23.7, Monocytes (%) (Auto) 11.3H, Eosinophils (%) (Auto) 2.9, Basophils (%) (Auto) 0.4, Sodium Level 147H, Potassium Level 3.9, Chloride Level 110H, Carbon Dioxide Level 31, Anion Gap 6, Blood Urea Nitrogen 7, Creatinine 0.8, Estimat Glomerular Filtration Rate > 60, Glucose Level 76, Calcium Level 8.8 ALEKSANDER LICONA Jul 30, 2017 16:58
--- NOTE | 2017-07-30 20:44 | General Progress Note ---
Assessment/Plan Assessment/Plan IMPRESSION/PLAN: 1. Pancytopenia. Continue to monitor. Counts currently not critical. 2. Leukopenia, persistent, multifactorial. 3. Thrombocytopenia, persistent, multifactorial. 4. Anemia of chronic disease. watch counts. no evidence of bleeding 5. Coagulopathy, multifactorial. 6. Dysphagia. 7. Thyroid nodule. T3, T4, TSH wnl. Subjective ROS Limited/Unobtainable: Yes Allergies: Coded Allergies: PENICILLINS (Verified Allergy, Unknown, 07/23/17) Subjective s/p peg placement Objective Last 24 Hour Vital Signs Date Time Temp Pulse Resp B/P (MAP) Pulse Ox O2 Delivery O2 Flow Rate FiO2 07/30/17 12:00 97.5 62 20 97/58 98 Room Air 07/30/17 12:00 97.2 61 20 80/45 96 Room Air 07/30/17 08:00 97.3 60 20 80/48 96 Room Air 07/30/17 04:00 98.0 54 20 90/58 99 Room Air 07/30/17 00:18 98.7 69 19 88/61 98 Room Air Intake and Output 07/30/17 07/31/17 19:00 07:00 Intake Total 480 ml Balance 480 ml Free Water 120 ml Tube Feeding 360 ml Laboratory Tests 07/30/17 05:45: White Blood Count 4.8, Red Blood Count 3.71L, Hemoglobin 12.2L, Hematocrit 36.0L , Mean Corpuscular Volume 97, Mean Corpuscular Hemoglobin 32.7H, Mean Corpuscular Hemoglobin Concent 33.7, Red Cell Distribution Width 12.7, Platelet Count 117L, Mean Platelet Volume 10.2H, Neutrophils (%) (Auto) 61.7, Lymphocytes (%) (Auto) 23.7, Monocytes (%) (Auto) 11.3H, Eosinophils (%) (Auto) 2.9, Basophils (%) (Auto) 0.4, Sodium Level 147H, Potassium Level 3.9, Chloride Level 110H, Carbon Dioxide Level 31, Anion Gap 6, Blood Urea Nitrogen 7, Creatinine 0.8, Estimat Glomerular Filtration Rate > 60, Glucose Level 76, Calcium Level 8.8 Height (Feet): 5 Height (Inches): 10.00 Weight (Pounds): 155 Kendall Bullard Jul 30, 2017 20:44
--- NOTE | 2017-07-31 00:16 | Consultation ---
DATE OF CONSULTATION: 07/28/2017 PSYCHOTHERAPY CONSULTATION PROGRESS NOTE TREATING ATTENDING PHYSICIAN: Ever Mendosa D.O. HISTORY OF PRESENT ILLNESS: The patient is a 51-year-old male patient. The patient was living in [facility]. The patient was brought into the hospital for dysphagia, decreased appetite. He was confused, helpless. The patient was referred for psychotherapeutic services due to confusion and disorganization in thought process. This clinician assessed this patient. The patient is very confused and disorganized, but communicative, however, fatigued today. The patient denies suicidal or homicidal thought of ideation. There is no indication of auditory or visual hallucinations for this patient. PAST MEDICAL HISTORY: History of diabetes, hypertension, and cerebral palsy. ALLERGIES: The patient is allergic to penicillin. SOCIAL HISTORY: The patient is a 51-year-old male patient from [facility], financially sustained through [employer] MENTAL STATUS EXAMINATION: The patient is alert and oriented to person and place. Dysphoric. Affect is blunted. Thought process is disorganized. The patient has poor attention and concentration. This clinician assessed this patient, assessed the patient's mental status. Encouraging the patient to participate in treatment milieu. DIAGNOSES: AXIS I Bipolar II disorder, depressed, severe without psychotic features PLAN: This clinician provided the patient with reality orientation and supportive psychotherapy. Continue with medication management and behavioral management. This clinician has reviewed the patient's chart and discussed the treatment with treating team. Mikey Parker PsyD. : ATUL JOB#: [id number] CC:
--- NOTE | 2017-07-31 10:55 | Discharge Summary ---
Discharge Summary Hospital Course Date of Admission Jul 23, 2017 at 12:12 Date of Discharge Jul 30, 2017 at 14:09 Admitting Diagnosis dysphagia HPI Benito Grijalva is a 51 year old male who was admitted on Jul 23, 2017 at 12 :12 for Dysphagia Hospital Course [id number] Discharge Discharge Disposition Patient was discharged to SNF/Subacute Facility(03) Discharge Diagnoses: Birdie Ferreira NP Jul 31, 2017 10:55
--- NOTE | 2017-08-01 01:45 | Discharge Summary 2 SIG ---
DATE OF ADMISSION: 07/23/2017 DATE OF DISCHARGE: 07/30/2017 CONSULTANTS: 1. Fabien Tang M.D. 2. Yadira Bell M.D. 3. Sheldon Lopez M.D. 4. Kenny Anderson M.D. 5. Rusty Bowen M.D. 6. Alexis Bullard M.D. BRIEF HOSPITAL COURSE: The patient is a 51-year-old [facility], presented with failure to thrive and weakness. The patient has history of contractures and dysphagia and was sent in for evaluation for a video fluoroscopy. The patient had muffled voice, however, able to state his name and where he is, does not know the year or purpose. Chest x-ray done showed no acute abnormalities. He was admitted to medical floor for evaluation of failure to thrive. Chest x-ray done showed a radiopaque catheter or wire projected in the midline over the neck and upper mediastinum and another associated catheter wire projected over the heart and upper abdomen. There was no evidence of indwelling G-tube catheter. CAT scan of the abdomen, chest, and pelvis was obtained and again revealed a radiopaque foreign body with wiring from spinal stimulator. The patient has history of severe cerebral palsy with spastic quadriparesis and significant mental retardation. The patient had a spinal stimulator, which is probably nonfunctioning at this time. He is on a small dose of Depakote, which is unlikely for seizure activities more so for behavioral abnormality. He had a head CT done that was negative for acute intracranial bleed or mass effect. 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 He underwent swallow evaluation on 07/28/2017 and showed dysphagia and was recommended non-oral feedings. He underwent an esophagogastroduodenoscopy with percutaneous endoscopic gastrostomy tube placement by Dr. Tang. There were multiple gastric polyps noted, status post biopsy. He was placed on abdominal binder and tube feedings were started. Gastric biopsy showed fundic gland polyp negative for dysplasia or malignancy. The patient had pancytopenia, however, counts were not clear. He had thrombocytopenia and leukopenia. Anemia was assessed to be secondary to chronic disease. There was no evidence of active bleeding. Thyroid ultrasound showed presence of left thyroid nodules, however, thyroid function tests TSH, T3, and T4 were within normal limits. He was diagnosed with bipolar 2 disorder and was continued on Remeron and was given psychotherapy. He was tolerating G-tube feeding well. He was eventually discharged back to [facility]. FINAL DIAGNOSES: 1. Failure to thrive with protein-calorie malnutrition. 2. Status post esophagogastroduodenoscopy with percutaneous endoscopic gastrostomy tube placement. 3. Anemia of chronic disease. 4. Cerebral palsy with spastic quadriparesis. 5. High risk for aspiration. 6. Pancytopenia. 7. Leukopenia. 8. Thrombocytopenia. 9. Coagulopathy. 10. Dysphagia. 11. Bipolar 2 disorder with severe psychotic features. 12. Asymptomatic bacteriuria. 13. Hypertension. DISCHARGE MEDICATIONS: Refer to medications list. DISPOSITION: The patient was discharged to [facility]. Ever Mendosa D.O. I have been assigned to dictate discharge summary on this account and I was not involved in the patient's management. Birdie Ferreira N.P. DR: ALEIDA JOB#: [id number] CC: CONNER
== END 2017-07-30 14:09 | DRG 391 ==
LOC: EDBD 10:40 → EMR 11:05 → 4E 12:12 → EDBEDREQ 12:14 → 4E 19:34
DX: R13.10 Dysphagia, unspecified (principal); G82.50 Quadriplegia, unspecified; D61.818 Other pancytopenia; E46 Unspecified protein-calorie malnutrition; F03.90 Unspecified dementia, unspecified severity, without behavioral disturbance, psychotic disturbance, mood disturbance, and anxiety; D69.6 Thrombocytopenia, unspecified; E86.0 Dehydration; F31.81 Bipolar II disorder; N39.0 Urinary tract infection, site not specified; E11.9 Type 2 diabetes mellitus without complications; D63.8 Anemia in other chronic diseases classified elsewhere; R62.7 Adult failure to thrive; G80.9 Cerebral palsy, unspecified; K56.41 Fecal impaction; Z88.0 Allergy status to penicillin; F79 Unspecified intellectual disabilities; I10 Essential (primary) hypertension; G89.29 Other chronic pain; M54.5 Low back pain; K31.7 Polyp of stomach and duodenum; G40.909 Epilepsy, unspecified, not intractable, without status epilepticus; E04.1 Nontoxic single thyroid nodule
CPT/HCPCS: 36415; 70450; 71010; 71250; 74176; 74230; 76536; 80048; 80053; 80061; 80076; 81003; 82962; 83735; 84100; 84439; 84443; 84481; 85007; 85025; 85610; 85730; 93005; 94003; 94150; 95819; 97803; 99285; J1815; S0077

== ENCOUNTER 2018-03-16 10:01 | Outpatient (CLI) | payer MEDICARE, MEDICAID ==
[~2018-03-16 10:01] MED LIST: AMBIEN5 MG GT; CRANBERRY450 M4 PO; DEPAKOTE SPRIN125 MG PO; DOCUSATE SODIU100 MG ORAL; DULCOLAX STOOL100 M1 PO; METFORMIN HCL500 M1 ORAL; MILK OF MA400 MG/51 ORAL; MIRALAX17 G2 GT; PEPCID AC20 M2 PO; VALPROIC A250 MG/51 GT
--- NOTE | 2018-03-16 10:45 | GI Initial Consult Note ---
History of Present Illness General Date patient seen: Mar 16, 2018 Time patient seen: 10:39 Referring physician: IRLANDA URIAS Reason for Consultation: COLONOSCOPY Present Illness HPI Patient is a 51 yo gentleman with pmhx of HTN, cerebral palsy and mental retardation who presents to [facility] for initial colonoscopy screening. ROS limited, the patient is non verbal. BIB caregiver. NAD with no active s/sx of N/V/D. Unable to assess weight because the patient is wheelchair bound. The patient is GT dependent, in which it appeared C/D/I with no noted leaks or bleeding around the site. Patient is a fall risk. No known history of colonoscopy. Home Meds Reported Medications Polyethylene Glycol 3350* (MIRALAX*) 17 Gm Powd.pack, 17 GM GT BEDTIME for Constipation, PACKET 07/30/17 Zolpidem Tartrate* (AMBIEN*) 5 Mg Tablet, 5 MG GT BEDTIME PRN for Insomnia, TAB 07/30/17 Valproate Sodium (VALPROIC ACID) 250 Mg/5 Ml Solution, 500 MG GT EVERY 12 HOURS 07/30/17 Famotidine (PEPCID AC) 20 Mg Tablet, 20 MG PO, TAB 07/30/17 Magnesium Hydroxide* (MILK OF MAGNESIA*) 400 Mg/5 Ml Oral.susp, 30 ML ORAL DAILY , ML 07/23/17 Metformin Hcl* (METFORMIN HCL*) 500 Mg Tablet, 500 MG ORAL TWICE A DAY, TAB 07/23/17 Docusate Sodium (DULCOLAX STOOL SOFTENER) 100 Mg Capsule, 100 MG PO, CAP 07/23/17 Docusate Sodium* (DOCUSATE SODIUM*) 100 Mg Capsule, 100 MG ORAL DAILY, CAP 07/23/17 Divalproex Sodium (DEPAKOTE SPRINKLE) 125 Mg Cap.sprink, 125 MG PO BID, CAP 07/23/17 Cranberry Fruit Concentrate (CRANBERRY) 450 Mg Capsule, 450 MG PO DAILY, CAP 07/23/17 Med list reviewed/reconciled: Yes Allergies: Coded Allergies: PENICILLINS (Verified Allergy, Unknown, 07/23/17) Patient History PMH Narrative (1) Foreign body (2) Anemia (3) Cerebral palsy (4) Malnutrition (5) UTI (urinary tract infection) (6) Fecal impaction (7) s/p L frontal lobe lesion/irene hole. 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 (12) r/o progressive neurodegenerative disease, with quadriparesis, cognitive loss, dysphagia. Social History: Denies: smoking, alcohol use, drug use, other Review of Systems All Other Systems: limited Physical Exam T 97.6 BP 87/43 P 63 97 RA Sp02 EP Interpretation: reviewed, normal General Appearance: well appearing, no apparent distress, alert Head: normocephalic EENT: PERRL/EOMI, normal ENT inspection Neck: supple Respiratory: normal breath sounds, no respiratory distress Cardiovascular: normal rate Gastrointestinal: normal inspection, non tender, soft, normal bowel sounds, non -distended, gt - c/d/i Rectal: deferred Genitourinary: deferred Musculoskeletal: normal inspection, back normal Neurologic: alert, responsive Skin: normal inspection, normal color, no rash, warm/dry, palpation normal, well hydrated Lymphatic: normal inspection, no adenopathy GI: Plan Problems: (1) G tube feedings (2) Colonoscopy planned (3) At high risk for aspiration (4) Cerebral palsy (5) Anemia (6) r/o progressive neurodegenerative disease, with quadriparesis, cognitive loss, dysphagia. Plan EGD/colonoscopy scheduled 03/24/18. - CLD & (Nulytely/Suprep/Movi-Prep) prep instructions written on order sheet. - All other orders on order sheet transported with patient. Seen with Dr. Tang. Thank you for this patient referral. The patient was seen and examined at bedside and all new and available data was reviewed in the patients chart. I agree with the above findings, impression and plan. (Patient seen earlier today. Signature stamp does not reflect patient encounter time.). - MD Emilia Arroyo,[facility] Mar 16, 2018 10:45
== END 2018-03-16 10:32 | disposition home or self-care (01) ==
LOC: PAN 10:01
DX: Z43.1 Encounter for attention to gastrostomy (principal); G80.9 Cerebral palsy, unspecified; D64.9 Anemia, unspecified; I10 Essential (primary) hypertension; F79 Unspecified intellectual disabilities; Z99.3 Dependence on wheelchair; Z88.0 Allergy status to penicillin; G40.909 Epilepsy, unspecified, not intractable, without status epilepticus
CPT/HCPCS: 99202

== ENCOUNTER 2018-03-26 07:56 | Day surgery (SDC) | payer MEDICARE, MEDICAID ==
[~2018-03-26] VITALS: Ht 170.2 cm; Wt 59.9 kg
[2018-03-26] VITALS (8 sets, daily range): BP systolic 94–109; BP diastolic 50–65
--- NOTE | 2018-03-26 07:05 | Anethesia Preoperative Eval ---
Anesthesia Pre-op PMH/ROS General Date of Evaluation: Mar 26, 2018 Time of Evaluation: 07:05 Anesthesiologist: edd ASA Score: ASA 3 Mallampati Score Class I : Soft palate, uvula, fauces, pillars visible Class II: Soft palate, uvula, fauces visible Class III: Soft palate, base of uvula visible Class IV: Only hard plate visible Mallampati Classification: Class II Surgeon: fabienne Diagnosis: anemia, colon screening Surgical Procedure: egd/colonoscopy Anesthesia History: none Social History: current smoker Family History: no anesthesia problems Allergies: Coded Allergies: PENICILLINS (Verified Allergy, Unknown, 07/23/17) Medications: see eMAR Past Medical History Cardiovascular: Reports: HTN Gastrointestinal/Genitourinary: Reports: GERD, other - malnutrition Neurologic/Psychiatric: Reports: dementia, depression/anxiety, other Endocrine: Reports: DM Hematology/Immune: Reports: anemia Anesthesia Pre-op Phys. Exam Physician Exam Last Vital Signs Date Time Temp Pulse Resp B/P (MAP) Pulse Ox O2 Delivery O2 Flow Rate FiO2 03/26/18 09:41 97.5 72 16 105/64 97 Room Air 97.5 Constitutional: NAD Neurologic: CN 2-12 intact Cardiovascular: RRR Respiratory: CTA Gastrointestinal: S/NT/ND Airway Exam Mallampati Score: Class II MO: limited Neck: supple TMD: 2fb ROM: limited Anesthesia Pre-op A/P Risk Assessment & Plan Assessment: asa3 Plan: mac Status Change Before Surgery: No Pre-Antibiotics Drug: Karley Peters MD Mar 26, 2018 07:05
[~2018-03-26 07:56] MED LIST changes: +Atropine Inj 1mg/10ml Syr IV PRN; +DiphenhydrAMINE 50mg/ml Inj IVP PRN; +Midazolam 2mg/2ml Inj IVP PRN; +fentaNYL 100 mcg/2 mL IV PRN
--- NOTE | 2018-03-26 09:30 | Pre-Procedure Note/Attestation ---
Pre-Procedure Note/Attestation Complete Prior to Procedure Planned Procedure: not applicable Procedure Narrative: esophagogastroduodenoscopy and colonoscopy Indications for Procedure Pre-Operative Diagnosis: anemia Attestation I attest that I discussed the nature of the procedure; its benefits; risks and complications; and alternatives (and the risks and benefits of such alternatives ), prior to the procedure, with the patient (or the patient's legal sales representative malt liquors). I attest that, if there was a reasonable possibility of needing a blood transfusion, the patient (or the patient's legal sales representative malt liquors) was given the [facility] standardized written summary, pursuant to the Sim Jolene Blood Safety Act ([place] Health and Safety Code # 1645, as amended). I attest that I re-evaluated the patient just prior to the surgery and that there has been no change in the patient's H&P, except as documented below: Fabien Tang MD Mar 26, 2018 09:30
--- NOTE | 2018-03-26 09:31 | Short Stay Surgery H&P ---
History of Present Illness History of Present Illness Chief Complaint see recent office consult note HPI Benito Grijalva is a 52 year old male who was admitted on for Anemia Patient History Allergies: Coded Allergies: PENICILLINS (Verified Allergy, Unknown, 07/23/17) Medication History Scheduled Cranberry Fruit Concentrate (Cranberry), 450 MG PO DAILY, (Reported) Divalproex Sodium (Depakote Sprinkle), 125 MG PO BID, (Reported) Docusate Sodium* (Docusate Sodium*), 100 MG ORAL DAILY, (Reported) Magnesium Hydroxide* (Milk Of Magnesia*), 30 ML ORAL DAILY, (Reported) Metformin Hcl* (Metformin Hcl*), 500 MG ORAL TWICE A DAY, (Reported) Polyethylene Glycol 3350* (Miralax*), 17 GM GT BEDTIME, (Reported) Valproate Sodium (Valproic Acid), 500 MG GT EVERY 12 HOURS, (Reported) Scheduled PRN Zolpidem Tartrate* (Ambien*), 5 MG GT BEDTIME PRN for Insomnia, (Reported) Miscellaneous Medications Docusate Sodium (Dulcolax Stool Softener), 100 MG PO, (Reported) Famotidine (Pepcid Ac), 20 MG PO, (Reported) Plan Attestation Are the patient's medical conditions optimized for surgery? Fabien Tang MD Mar 26, 2018 09:31
--- NOTE | 2018-03-26 10:27 | Pre-Procedure Note/Attestation ---
Pre-Procedure Note/Attestation Complete Prior to Procedure Planned Procedure: not applicable Procedure Narrative: esophagogastroduodenoscopy and colonoscopy Indications for Procedure Pre-Operative Diagnosis: anemia Attestation I attest that I discussed the nature of the procedure; its benefits; risks and complications; and alternatives (and the risks and benefits of such alternatives ), prior to the procedure, with the patient (or the patient's legal energy conservation representative). I attest that, if there was a reasonable possibility of needing a blood transfusion, the patient (or the patient's legal energy conservation representative) was given the [facility] standardized written summary, pursuant to the Sim Jolene Blood Safety Act ([place] Health and Safety Code # 1645, as amended). I attest that I re-evaluated the patient just prior to the surgery and that there has been no change in the patient's H&P, except as documented below: Fabien Tang MD Mar 26, 2018 10:27
--- NOTE | 2018-03-26 10:27 | Short Stay Surgery H&P ---
History of Present Illness History of Present Illness Chief Complaint see recent consult note HPI Benito Grijalva is a 52 year old male who was admitted on for Anemia Patient History Allergies: Coded Allergies: PENICILLINS (Verified Allergy, Unknown, 07/23/17) Medication History Scheduled Cranberry Fruit Concentrate (Cranberry), 450 MG PO DAILY, (Reported) Divalproex Sodium (Depakote Sprinkle), 125 MG PO BID, (Reported) Docusate Sodium* (Docusate Sodium*), 100 MG ORAL DAILY, (Reported) Magnesium Hydroxide* (Milk Of Magnesia*), 30 ML ORAL DAILY, (Reported) Metformin Hcl* (Metformin Hcl*), 500 MG ORAL TWICE A DAY, (Reported) Polyethylene Glycol 3350* (Miralax*), 17 GM GT BEDTIME, (Reported) Valproate Sodium (Valproic Acid), 500 MG GT EVERY 12 HOURS, (Reported) Scheduled PRN Zolpidem Tartrate* (Ambien*), 5 MG GT BEDTIME PRN for Insomnia, (Reported) Miscellaneous Medications Docusate Sodium (Dulcolax Stool Softener), 100 MG PO, (Reported) Famotidine (Pepcid Ac), 20 MG PO, (Reported) Physical Exam Vital Signs Last Vital Signs Date Time Temp Pulse Resp B/P (MAP) Pulse Ox O2 Delivery O2 Flow Rate FiO2 03/26/18 09:41 97.5 72 16 105/64 97 Room Air 97.5 Plan Attestation Are the patient's medical conditions optimized for surgery? Fabien Tang MD Mar 26, 2018 10:27
[2018-03-26] MEDS ORDERED: D5 1/2NS 1000ml IV ONE (10:30)
[2018-03-26] MEDS ORDERED: Propofol 200mg/20ml IV ONE (10:30)
[2018-03-26] MEDS ORDERED: Lidocaine 1% MPF 10mg/ml 5ml ONE (10:30)
--- NOTE | 2018-03-26 11:00 | Endoscopy Procedure Note ---
Endoscopy Procedure Note General Indication for Procedure: anemia Procedures Performed: EGD, colonoscopy Operative Findings/Diagnosis: gastritis, hemorrhoids Specimen: yes Pt Tolerated Procedure Well: Yes Estimated Blood Loss: none Anesthesia Anesthesiologist: ko Anesthesia: MAC Inserted Devices Implant(s) used?: No Quality Quality of Bowel Preparation: Poor Did scope reach the cecum?: No Why scope didn't reach cecum: Bowel preparation poor Was there any complications?: No GI Core Measures 50 yrs or older w/o bx or poly: No 10yrs. F/U not recommended: Yes If not recommended, why?: Above average risk 10 yrs. F/U needed: Yes 18 years or older w/prev. colo: No Fabien Tang MD Mar 26, 2018 11:00
--- NOTE | 2018-03-26 11:32 | Immediate Post-Op Evaluation ---
Immediate Post-Op Evalulation Immediate Post-Op Evalulation Procedure: egd/colonoscopy/bx Date of Evaluation: Mar 26, 2018 Time of Evaluation: 11:29 IV Fluids: 300ml d5/0.45ns Blood Products: none Estimated Blood Loss: negligible Blood Pressure Systolic: 97 Blood Pressure Diastolic: 50 Pulse Rate: 70 Respiratory Rate: 18 O2 Sat by Pulse Oximetry: 100 Temperature (Fahrenheit): 97.5 Pain Score (1-10): 0 Nausea: No Vomiting: No Complications none Patient Status: awake, reacts, patent Hydration Status: adequate Drug: Karley Peters MD Mar 26, 2018 11:32
--- NOTE | 2018-03-26 11:33 | 48 Hour Post Anesthesia Eval ---
Post Anesthesia Evaluation Procedure: egd/colonoscopy/bx Date of Evaluation: Mar 26, 2018 Time of Evaluation: 11:32 Blood Pressure Systolic: 99 0: 55 Pulse Rate: 70 Respiratory Rate: 18 Temperature (Fahrenheit): 97.5 O2 Sat by Pulse Oximetry: 100 Airway: patent Nausea: No Vomiting: No Pain Intensity: 0 Hydration Status: adequate Cardiopulmonary Status: stable Mental Status/LOC: patient returned to baseline Post-Anesthesia Complications: none Follow-up care needed: N/A Karley Sandhu MD Mar 26, 2018 11:33
--- NOTE | 2018-03-26 17:15 | Procedure Note ---
DATE OF PROCEDURE: 03/26/2018 SURGEON: Fabien Tang M.D. ANESTHESIOLOGIST: Dr. Constantino. PROCEDURE: Upper endoscopy with biopsy and attempted colonoscopy. ANESTHESIA: Per Dr. Constantino. INSTRUMENT: Olympus adult flexible upper endoscope and colonoscope. INDICATION: Anemia. The procedure, risks, benefits, and possible consequences, including hemorrhage, aspiration, perforation and infection, and alternative treatments, were explained to the patient/legal guardian by Dr. Fabien Tang and the patient/legal guardian understood and accepted these risks. DESCRIPTION OF PROCEDURE: After informed consent was obtained and the patient was adequately sedated, Olympus upper scope was advanced from the mouth to the second portion of the duodenum and retroflexion was performed in the stomach. The patient had diffuse gastritis. Multiple fundic gland polyps were seen throughout the gastric stomach. Then we did random biopsy of the antrum to rule out H. pylori infection. At this time, the scope was retrieved and the patient was turned over for colonoscopy. We did rectal exam which was positive for internal hemorrhoids. Then, we passed the scope from the rectum into the sigmoid. We could not advance any more given this very poor quality of prep. We decided to call it a quit. SUMMARY OF FINDINGS: 1. Gastritis, status post biopsy. 2. Multiple fundic gland polyps. 3. Incomplete colonoscopy examination given poor prep. 4. Internal hemorrhoids. RECOMMENDATIONS: 1. Follow up biopsy results. 2. The patient needs another colonoscopy with better prep. We will discuss with the residential trying to see if we can. Given the patient has a G-tube, it should not be that hard to prep him, so we need to communicate with the residential to see what happened with this prep. Fabien Tang M.D. DR: Jake JOB#: [id number] CC:
== END 2018-03-26 13:45 | disposition home or self-care (01) ==
LOC: GAS 07:56
DX: K29.70 Gastritis, unspecified, without bleeding (principal); K31.7 Polyp of stomach and duodenum; K64.8 Other hemorrhoids; Z79.84 Long term (current) use of oral hypoglycemic drugs; Z88.0 Allergy status to penicillin; K21.9 Gastro-esophageal reflux disease without esophagitis; F03.90 Unspecified dementia, unspecified severity, without behavioral disturbance, psychotic disturbance, mood disturbance, and anxiety; F32.9 Major depressive disorder, single episode, unspecified; F41.9 Anxiety disorder, unspecified; E11.9 Type 2 diabetes mellitus without complications
CPT/HCPCS: 43239; 45330; 82962; J2704; 94003; 94150

== ENCOUNTER 2018-04-05 10:42 | Day surgery (SDC) | payer MEDICARE, MEDICAID ==
[2018-04-05] VITALS (8 sets, daily range): BP systolic 88–131; BP diastolic 45–72
[~2018-04-05] VITALS: Ht 170.2 cm; Wt 59.9 kg
[~2018-04-05 10:42] MED LIST changes: -Atropine Inj 1mg/10ml Syr IV PRN; -DiphenhydrAMINE 50mg/ml Inj IVP PRN; -Midazolam 2mg/2ml Inj IVP PRN; -fentaNYL 100 mcg/2 mL IV PRN
[2018-04-05] MEDS ORDERED: LR 1000ml ONE (11:00)
[2018-04-05] MEDS ORDERED: Propofol 200mg/20ml IV ONE (11:00)
[2018-04-05] MEDS ORDERED: Midazolam 2mg/2ml Inj ONE (11:00)
[2018-04-05] MEDS ORDERED: Lidocaine 1% MPF 10mg/ml 5ml ONE (11:00)
--- NOTE | 2018-04-05 11:22 | Pre-Procedure Note/Attestation ---
Pre-Procedure Note/Attestation Complete Prior to Procedure Planned Procedure: not applicable Procedure Narrative: colonoscopy Indications for Procedure Pre-Operative Diagnosis: screening Attestation I attest that I discussed the nature of the procedure; its benefits; risks and complications; and alternatives (and the risks and benefits of such alternatives ), prior to the procedure, with the patient (or the patient's legal representative personal service). I attest that, if there was a reasonable possibility of needing a blood transfusion, the patient (or the patient's legal representative personal service) was given the [facility] standardized written summary, pursuant to the [place] Blood Safety Act ([place] Health and Safety Code # 1645, as amended). I attest that I re-evaluated the patient just prior to the surgery and that there has been no change in the patient's H&P, except as documented below: Fabien Tang MD Apr 05, 2018 11:22
--- NOTE | 2018-04-05 11:22 | Short Stay Surgery H&P ---
History of Present Illness History of Present Illness Chief Complaint see recent consult note HPI Benito Grijalva is a 52 year old male who was admitted on for Anemia Patient History Allergies: Coded Allergies: PENICILLINS (Verified Allergy, Unknown, 07/23/17) Medication History Scheduled Cranberry Fruit Concentrate (Cranberry), 450 MG PO DAILY, (Reported) Divalproex Sodium (Depakote Sprinkle), 125 MG PO BID, (Reported) Docusate Sodium* (Docusate Sodium*), 100 MG ORAL DAILY, (Reported) Magnesium Hydroxide* (Milk Of Magnesia*), 30 ML ORAL DAILY, (Reported) Metformin Hcl* (Metformin Hcl*), 500 MG ORAL TWICE A DAY, (Reported) Polyethylene Glycol 3350* (Miralax*), 17 GM GT BEDTIME, (Reported) Valproate Sodium (Valproic Acid), 500 MG GT EVERY 12 HOURS, (Reported) Scheduled PRN Zolpidem Tartrate* (Ambien*), 5 MG GT BEDTIME PRN for Insomnia, (Reported) Miscellaneous Medications Docusate Sodium (Dulcolax Stool Softener), 100 MG PO, (Reported) Famotidine (Pepcid Ac), 20 MG PO, (Reported) Physical Exam Vital Signs Last Vital Signs Date Time Temp Pulse Resp B/P (MAP) Pulse Ox O2 Delivery O2 Flow Rate FiO2 04/05/18 11:10 97.2 65 18 98/63 97 Room Air 97.2 Plan Attestation Are the patient's medical conditions optimized for surgery? Fabien Tang MD Apr 05, 2018 11:22
--- NOTE | 2018-04-05 11:48 | Anethesia Preoperative Eval ---
Anesthesia Pre-op PMH/ROS General Date of Evaluation: Apr 05, 2018 Time of Evaluation: 11:06 Anesthesiologist: Wesley ASA Score: ASA 4 Mallampati Score Class I : Soft palate, uvula, fauces, pillars visible Class II: Soft palate, uvula, fauces visible Class III: Soft palate, base of uvula visible Class IV: Only hard plate visible Mallampati Classification: Class II Surgeon: Kitty Diagnosis: Anemia Surgical Procedure: Colonoscopy Anesthesia History: none Family History: no anesthesia problems Allergies: Coded Allergies: PENICILLINS (Verified Allergy, Unknown, 07/23/17) Medications: see eMAR Past Medical History Cardiovascular: Reports: HTN Gastrointestinal/Genitourinary: Reports: GERD Neurologic/Psychiatric: Reports: dementia, depression/anxiety, other - Cerbral Palsy, Schizophrenia Endocrine: Reports: DM Hematology/Immune: Reports: anemia Musculoskeletal/Integumentary: Reports: other - Contracture PSxH Narrative: Gastrostomy Anesthesia Pre-op Phys. Exam Physician Exam Last Vital Signs Date Time Temp Pulse Resp B/P (MAP) Pulse Ox O2 Delivery O2 Flow Rate FiO2 7//18 11:10 97.2 65 18 98/63 97 Room Air 97.2 Constitutional: NAD Neurologic: CN 2-12 intact Cardiovascular: RRR Respiratory: CTA Gastrointestinal: S/NT/ND Airway Exam Mallampati Score: Class II MO: limited ROM: limited Teeth: missing, intact Anesthesia Pre-op A/P Risk Assessment & Plan Assessment: ASA 4 Plan: GA Status Change Before Surgery: No Jonn Olson MD Apr 05, 2018 11:48
--- NOTE | 2018-04-05 11:49 | Immediate Post-Op Evaluation ---
Immediate Post-Op Evalulation Immediate Post-Op Evalulation Procedure: Colonoscopy Date of Evaluation: Apr 05, 2018 Time of Evaluation: 12:12 IV Fluids: 300 LR Blood Products: 0 Estimated Blood Loss: 1 Urinary Output: 0 Blood Pressure Systolic: 94 Blood Pressure Diastolic: 48 Pulse Rate: 56 Respiratory Rate: 17 O2 Sat by Pulse Oximetry: 99 Temperature (Fahrenheit): 97.5 Pain Score (1-10): 1 Nausea: No Vomiting: No Complications 0 Patient Status: awake, reacts, patent, none Hydration Status: adequate Jonn Olson MD Apr 05, 2018 11:49
--- NOTE | 2018-04-05 11:50 | Endoscopy Procedure Note ---
Endoscopy Procedure Note General Indication for Procedure: screening Procedures Performed: colonoscopy Operative Findings/Diagnosis: 4 polyps Specimen: yes Pt Tolerated Procedure Well: Yes Estimated Blood Loss: none Anesthesia Anesthesiologist: maccay Anesthesia: MAC Inserted Devices Implant(s) used?: No Quality Quality of Bowel Preparation: Good Did scope reach the cecum?: Yes Was there any complications?: No GI Core Measures 50 yrs or older w/o bx or poly: No 10yrs. F/U not recommended: Yes If not recommended, why?: Above average risk 10 yrs. F/U needed: Yes 18 years or older w/prev. colo: No Fabien Tang MD Apr 05, 2018 11:50
--- NOTE | 2018-04-05 11:50 | 48 Hour Post Anesthesia Eval ---
Post Anesthesia Evaluation Procedure: Colonoscopy Date of Evaluation: Apr 05, 2018 Time of Evaluation: 14:23 Blood Pressure Systolic: 101 0: 71 Pulse Rate: 62 Respiratory Rate: 18 Temperature (Fahrenheit): 98.4 O2 Sat by Pulse Oximetry: 99 Airway: patent Nausea: No Vomiting: No Pain Intensity: 0 Hydration Status: adequate Cardiopulmonary Status: Stable Mental Status/LOC: patient returned to baseline Follow-up Care/Observations: 0 Post-Anesthesia Complications: 0 Follow-up care needed: ready to discharge Jonn Olson MD Apr 05, 2018 11:50
--- NOTE | 2018-04-05 14:30 | Procedure Note ---
DATE OF PROCEDURE: 04/05/2018 SURGEON: Fabien Tang M.D. PROCEDURE PERFORMED: Colonoscopy with snare polypectomy and biopsy. ANESTHESIOLOGIST: Jonn Olson M.D. INSTRUMENT: Olympus adult flexible colonoscope. INDICATION: Screening. The procedure, risks, benefits, and possible consequences, including hemorrhage, aspiration, perforation and infection, and alternative treatments, were explained to the patient/legal guardian by Dr. Fabien Tang and the patient/legal guardian understood and accepted these risks. DESCRIPTION OF PROCEDURE: After informed consent was obtained and the patient was adequately sedated. First, rectal exam was performed, which was positive for internal hemorrhoids. Then, the scope was advanced from rectum into the cecum documented by the appendix orifice, ileocecal valve, and right upper quadrant palpation. Quality of prep was fair. The patient had evidence of very prominent ileocecal valve. There was one sessile polyp in the proximal ascending colon, roughly measured about 7 mm, removed with the hot snare polypectomy technique. There were two diminutive polyp in transverse colon, both removed with the cold biopsy forceps technique. There was one polyp roughly about 7 mm sessile in the rectum removed with a hot snare polypectomy, but unfortunately the polyp as soon as we cut it went to the bulb, which was in the rectum, so we could not retrieve that polyp. Evidence of diverticulosis in the left colon. The patient has evidence of solitary ulcer in the rectum suspicious for either history of stool impaction versus just a solitary ulcer. This ulcer was also biopsied. Also the patient has evidence of hemorrhoids on the retroflexion seen. SUMMARY OF FINDINGS: 1. Four polyps in the colon, see above for details. 2. Diverticulosis. 3. Rectal solitary ulcer. 4. Internal hemorrhoids. RECOMMENDATIONS: 1. Follow up biopsy results and treat accordingly. 2. We will recommend repeat colonoscopy in three years given four polyps. Fabien Tang M.D. DR: SEB JOB#: [id number] CC:
== END 2018-04-05 13:15 | disposition home or self-care (01) ==
LOC: GAS 10:42
DX: D64.9 Anemia, unspecified (principal); D12.3 Benign neoplasm of transverse colon; D12.2 Benign neoplasm of ascending colon; K62.1 Rectal polyp; K64.8 Other hemorrhoids; K57.30 Diverticulosis of large intestine without perforation or abscess without bleeding; F03.90 Unspecified dementia, unspecified severity, without behavioral disturbance, psychotic disturbance, mood disturbance, and anxiety; I10 Essential (primary) hypertension; E11.9 Type 2 diabetes mellitus without complications; F20.9 Schizophrenia, unspecified; G40.909 Epilepsy, unspecified, not intractable, without status epilepticus; K21.9 Gastro-esophageal reflux disease without esophagitis; F32.9 Major depressive disorder, single episode, unspecified; F41.9 Anxiety disorder, unspecified; G80.9 Cerebral palsy, unspecified
CPT/HCPCS: 45380; 45385; 82962; J2250; J2704; J7120; 94003; 94150